=== PATIENT | male | born 1960 | race Caucasian/White ===

== ENCOUNTER 2020-04-24 16:29 | Outpatient (CLI) | payer BC, SELFPAY | END 2020-04-24 16:30 | disposition home or self-care (01) | LOC: ANHCOVIDVC 16:29 | PROVIDERS: PCP Internal Medicine | DX: Z23 Encounter for immunization (principal) | CPT/HCPCS: 0001A; 91300 ==

== ENCOUNTER 2020-05-15 16:26 | Outpatient (CLI) | payer BC, SELFPAY | END 2020-05-15 16:27 | disposition home or self-care (01) | LOC: ANHCOVIDVC 16:26 | PROVIDERS: PCP Internal Medicine | DX: Z23 Encounter for immunization (principal) | CPT/HCPCS: 0002A; 91300 ==

== ENCOUNTER → 2021-05-19 07:38 | Outpatient (CLI) | payer BC, SELFPAY ==
--- NOTE | ~2021-05-19 | MR_ITS ---
EXAMINATION: MR lumbar spine wo con EXAM DATE: 05/19/2021 08:12 INDICATION: Low back radiculopathy, lbp right leg burning pain x3mos. Low back pain. TECHNIQUE: Multi-sequential, multiplanar MR images of the lumbar spine were obtained without contrast . Sagittal T1, T2, T2 fat saturation images. Axial T2 weighted images. There is no prior study for comparison. FINDINGS: There is moderate loss of the L5-S1 disc height, mild to moderate disc disease at the other lumbar levels. The conus medullaris terminates at the T12-L1 level and has normal signal intensity a nd morphology. There are no suspicious marrow signal abnormalities. Paraspinal soft tissue is unrema rkable. The vertebral bodies are aligned in the AP dimension. Level by level evaluation: T12-L1: There is a mild diffuse disc bulge. Facet arthropathy: None. Neural foraminal stenosis: No stenosis. Central canal stenosis: No stenosis. L1-L2: There is a mild to moderate diffuse disc bulge. Facet arthropathy: Mild. Neural foraminal stenosis: No stenosis. Central canal stenosis: Mild. L2-L3: There is a moderate diffuse disc bulge. Facet arthropathy: Mild to moderate. Neural foraminal stenosis: Mild to moderate bilateral. Central canal stenosis: Mild to moderate. L3-L4: There is a moderate diffuse disc bulge. Facet arthropathy: Moderate. Neural foraminal stenosis: Mild to moderate bilateral. Central canal stenosis: Moderate. L4-L5: There is a moderate to large diffuse disc bulge. Facet arthropathy: Moderate . Ligamentum flavum enlargement. Neural foraminal stenosis: Moderate left, mild to moderate right. Central canal stenosis: Moderate to severe. L5-S1: There is a moderate diffuse disc bulge. Facet arthropathy: Mild to moderate. Neural foraminal stenosis: Mild to moderate left, mild right. Central canal stenosis: Mild to moderate. IMPRESSION: 1. L4-5 moderate to severe central canal stenosis. 2. Less spondylosis other levels. Reviewed, dictated and finalized at location A.
== END ==
PROVIDERS: Visit Provider Nurse Practitioner Family
DX: M54.50 Low back pain, unspecified (principal); M47.896 Other spondylosis, lumbar region
CPT/HCPCS: 72148

== ENCOUNTER → 2022-12-27 10:46 | Outpatient (CLI) | payer BC, SELFPAY ==
--- NOTE | ~2022-12-27 | XR_ITS ---
Clinical Indication: Chronic cough PA and lateral views of the chest: Comparison: None Findings: The lungs are clear, without evidence of focal consolidation or pleural effusion. Cardiome diastinal silhouette is within normal limits. Bones and soft tissues are unremarkable. Impression: Normal chest. Reviewed, dictated and finalized at location . BUTTER HAND Impression: Normal chest.
== END ==
PROVIDERS: PCP Internal Medicine
DX: R05.3 Chronic cough (principal)
CPT/HCPCS: 71046

== ENCOUNTER 2023-09-29 08:11 | Outpatient (CLI) | payer BC, SELFPAY ==
--- NOTE | 2023-10-02 11:37 | WPDPFTINT ---
PFT Procedure Performed PFT Procedure Performed Spirometry with Pre/Post Bronchodilator Plethysmography (Lung Vol) Diffusing Cap (DLCO) Flow Vol Loop PFT Interpretation DOS: 09/29/2023 REQUESTING: Dr Lazar REASON FOR TESTING: Chronic cough PULMONARY FUNCTION TESTS Results are reliable and reproducible. Repeatability of spirometry FEV1 maneuver pre and post bronchodilator is Grade A. Spirometry: The pre-bronchodilator FEV1 is 4.58 L, 132%, above the normal range. The pre-bronchodilator FVC is 5.82 L, 130%, above the normal range.. The FEV1/FVC ratio is 79%, normal. After bronchodilator, the FEV1 is 4.72 L, 136%, +3%. The FVC is 5.86 L, 131%, +1%. The FEV1/FVC ratio is 80%. Lung volumes: The total lung capacity is 8.14 L, 119%, normal. The FRC is 3.50 L, 91%, normal. The residual volume is 2.24 L, 98%, normal. The RV/TLC is 28%, normal. Diffusion: DLCO is 31.6, 105%, normal. The DLCO/VA is 4.07, 101%, normal. Flow volume loop: The flow volume loop is normal. IMPRESSION: This is a normal spirometry showing large lungs without airflow obstruction, no response to bronchodilator, normal lung volumes and normal diffusion. Sheri Lazar MD
== END 2023-09-29 08:12 | disposition home or self-care (01) ==
PROVIDERS: PCP Internal Medicine; Visit Provider Internal Medicine Critical Care Medicine
DX: R05.3 Chronic cough (principal)
CPT/HCPCS: 94060; 94726; 94729

== ENCOUNTER 2023-09-29 08:12 | Outpatient (CLI) | payer BC, SELFPAY ==
--- NOTE | ~2023-09-29 | CT_ITS ---
EXAMINATION:CT chest high resolution wo mn DATE: 09/29/2023 09:34 INDICATION: Chronic cough. TECHNIQUE: Computed tomography (CT) of the chest was performed without intravenous contrast. Automate d exposure control and iterative reconstruction technique were employed. The dose-length product (DLP ) was 636.92 mGy-cm. COMPARISON: Chest 2 views 12/27/2022 FINDINGS: There is no bronchiectasis or honeycombing. There is no pneumonia or pleural effusion. The heart size is normal. No pericardial effusion. There is diffuse hepatic steatosis. There are gallston es in the gallbladder, which is normal in size. There are bridging endplate osteophytes at multiple l evels in the spine, consistent with diffuse idiopathic skeletal hyperostosis (DISH). IMPRESSION: 1. Normal lungs. 2. Diffuse hepatic steatosis. 3. Cholelithiasis. Reviewed, dictated and finalized at location A.
== END 2023-09-29 08:13 | disposition home or self-care (01) ==
PROVIDERS: PCP Internal Medicine; Visit Provider Internal Medicine Critical Care Medicine
DX: R05.3 Chronic cough (principal); K80.20 Calculus of gallbladder without cholecystitis without obstruction; K76.0 Fatty (change of) liver, not elsewhere classified
CPT/HCPCS: 71250

== ENCOUNTER 2024-01-21 08:19 | Outpatient (CLI) | payer BC, SELFPAY ==
--- NOTE | ~2024-01-21 | US_ITS ---
Limited Abdominal Sonogram: Real-time sonographic imaging of the right upper quadrant was performed. Clinical History: Abnormal LFTs Findings: The liver appears echogenic, with no evidence of mass lesion or bile duct dilatation. Main portal vein demonstrates normal direction of flow. The gallbladder is well distended, and contains e chogenic layering gallstones. The common bile duct measures 6 mm. The visualized pancreas, aorta, an d IVC are unremarkable. Right kidney measures 11.8 cm in length, without hydronephrosis or renal ston e. Impression: Diffuse fatty infiltration of the liver. Cholelithiasis. Reviewed, dictated and finalized at location M. ATIONAL ADVISOR Impression: Diffuse fatty infiltration of the liver. Cholelithiasis.
== END 2024-01-21 08:20 | disposition home or self-care (01) ==
PROVIDERS: PCP Internal Medicine; Visit Provider Internal Medicine
DX: R79.89 Other specified abnormal findings of blood chemistry (principal); K76.0 Fatty (change of) liver, not elsewhere classified; K80.20 Calculus of gallbladder without cholecystitis without obstruction
CPT/HCPCS: 76705

== ENCOUNTER 2024-06-22 10:56 | Outpatient (CLI) | payer BC, SELFPAY ==
--- OUTSIDE RECORDS SUMMARY | 2024-06-22 11:18 | XMS_ITS | Clinical Summary ---
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 Active Cyanocobalamin (VITAMIN B-12) [address] 1,000 mcg under the tongue daily. Active EPSOLAY 5 % Cream 3 Active montelukast (SINGULAIR) 10 MG tablet nightly at bedtime. 4 Active zinc gluconate 50 MG Tab Take 1 tablet (50 mg total) by mouth daily. Active tadalafil (CIALIS) 5 MG tabletIndications :BPH with obstruction/lower urinary tract symptoms Take 1 tablet (5 mg total) by mouth daily. 90 tablet 3 4 Active omeprazole (PRILOSEC) 20 MG capsule Take 1 capsule (20 mg total) by mouth 2 (two) times a day. 4 Active cetirizine (ZYRTEC) 10 MG tablet Take 1 tablet (10 mg total) by mouth daily. Active hydroCHLOROthiazi de (HYDRODIURIL) 25 MG tabletIndications :Benign essential hypertension TAKE 1 TABLET EVERY MORNING (MUST BE SEEN FOR FURTHER REFILLS) 90 tablet 3 4 Active nebivolol (BYSTOLIC) 20 MG tabletIndications :Benign essential hypertension TAKE 1 TABLET DAILY 90 tablet 3 4 Active Pyridoxine HCl (B-6) 100 MG Tab Take 1 tablet by mouth daily. Active magnesium oxide (MAG-OX) 250 MG tablet Take 1 tablet (250 mg total) by mouth daily. 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 White there was evidence of fatty liver disease during laprascopic surgery. ); Dizziness (Patient had dizziness episode last night, BP was 110/60 during episode. Patient help BP dose for today, patient does feel improvement, but not 100% back to normal. ) 04/06/2024 Travel 03/26/2024 8:00 AM [facility] - 03/26/2024 10:31 AM [facility] Surgery [facility] [place] [address] Jonnathan White MD LAPAROSCOPIC CHOLECYSTECTOMY WITH INTRAOPERATIVE CHOLANGIOGRAMS 03/26/2024 7:58 AM [facility] Anesthesia Event [facility] [place] [address] Quinten Zepeda MD Jarvis, Brittany L, BROADBAND INSTALLER 03/26/2024 5:29 AM [facility] - 03/28/2024 2:59 PM [facility] Hospital Encounter [facility] Med/Surg [address] [place] [address] Jonnathan White MD Discharge Disposition: Home or Self Care (Routine Discharge) 03/26/2024 Travel from Last 3 Months Immunizations Immunization Administration Dates Next Due Fluzone (IIV3, Trivalent, 0. 5 ML Prefilled Syringe) 12/08/2023 Fluzone 6 Months+ Quad (0.5 mL Prefilled Syringe) 11/13/2019 Influenza (Generic) 11/19/2017,11/10/2014 Influenza Adult (Generic) 12/01/2018,,11/10/2014,2012,01/14/2012 Tdap (Adacel) 07/09/2019 Zoster (Zostavax) 38719 Unt/0.65Ml 08/02/2016 Family History Medical History Relation Comments Hypertension Father Heart Disease Maternal Grandmother Diabetes Mother Hypertension Mother Cancer Paternal Grandfather Prostate Cancer Paternal Grandmother Breast Cancer Sister Brain Relation Status Comments Father Maternal Grandmother Mother Paternal Grandfather Paternal Grandmother Sister Social History Tobacco Use Types Packs/Day Years Used Date Smoking Tobacco: Never Smokeless Tobacco: Never Tobacco Cessation:Counseling Given: Not Answered Alcohol Use Standard Drinks/Week Comments Not Currently 0 (1 standard drink = 0.6 oz pur e alcohol) once every few months AUDIT-C Answer Date Recorded Frequency of Alcohol Consumption Monthly or less 02/16/2018 Average Number of Drinks Not on file 019 Frequency of Binge Drinking Not on file 08/2018 PHQ-2 Answer Date Recorded Patient Health Questionnaire-2 Score 0 04/06/2024 Sex and Gender Information Value Date Recorded Sex Assigned at Male 02/16/2018 2:46 PM [facility] Legal Sex Male 8:21 PM CDT Gender Identity Male 02/16/2018 2:46 PM [facility] Sexual Orientation Straight 02/16/2018 2: 46 PM [facility] Last Filed Vital Signs Vital Sign Reading Time Taken Comments Blood Pressure 118/78 04/06/2024 2:58 PM [facility] Pulse 84 04/06/2024 2:58 PM [facility] Temperature 36.5 C (97.7 F) 04/06/2024 2:58 PM [facility] Respiratory Rate 16 04/06/2024 2:58 PM [facility] Oxygen Saturation 97% 04/06/2024 2:58 PM [facility] Inhaled Oxygen Concentration - - Weight 112 kg (246 lb 14.4 oz) 04/06/2024 2:58 P M [facility] Height 188 cm (6' 2 ) 04/06/2024 2:58 PM [facility] Body Mass Index 31.7 04/06/2024 2:58 PM [facility] [facility] Plan of Treatment Health Maintenance Due Date Last Done Comments Pneumococcal Vaccine: 50+ Years (1 of 1 - PCV) 2012 Zoster Vaccines (3 of 3) 10/27/2021 09/01/2021, 07/12 Annual Physical 12/07/2024 12/08/2023 COVID-19 Vaccine ( - season) 2024 09/01/2021, 01/31/2021, 05/15/2020, Additional history exists Postponed from 10/12/2023 (Patient Refused) Colorectal Cancer Screening FIT-DNA (3 Years) 12/20/2026 12/21/2023, 12/21/2023, 10/30/2020, Additional history exists DTaP, Tdap and Td Vaccines (2 - Td or Tdap) 07/08/2029 07/09/2019 RSV Immunization or 60+ Years Completed 02/18/2023 Hepatitis C Completed 12/30/2023 PHQ-2 (Physician Goodells) Completed 04/06/2024 Meningococcal B Vaccine Aged Out No l onger eligible based on patient's age to complete this topic Meningococcal Vaccine Aged Out No cat swapna eligible based on patient's age to complete this topic RSV Immunizations Under 20 Months Aged Out No longer eligible based on patient's age to complete this topic Procedures Procedure Name Priority Date/Time Associated Diagnosis Comments HEPATIC FUNCTION PANEL TIMED 03/28/2024 10:09 AM [facility] COMPREHENSIVE METABOLIC PANEL Routine 03/28/2024 5:30 AM [facility] [facility] MRCP STACIE 03/27/2024 10:32 AM [facility] CBC W/DIFF AUTOMATED Routine 03/27/2024 5:25 AM [facility] HEPATIC FUNCTION PANEL Routine 03/27/2024 5:25 AM [facility] [facility] SURG XR CHOLANGIOGRAM Routine 03/26/2024 9:27 AM [facility] LAP,CHOLECYSTECTOMY/ GRAPH 03/26/2024 7:58 AM [facility] CHOLELITHIASIS ( CODE NOT PROVIDED BY OFFICE ) Case Notes SCHED BY PHONE WITH DEBORAH 03/05/2024 [facility] PHONE ASSESS REQUESTED 90 MINUTES FOR CASE Special Needs REQUESTED FOR 90 MINUTES PATHOLOGY Routine 03/26/2024 12:00 AM [facility] HEPATITIS C ANTIBODY Routine 12/30/2023 8:14 AM [facility] Routine general medical examination at a health care facility COLOGUARD (EXACT SCIENCE) Routine 12/21/2023 10:40 AM [facility] Colon cancer screening from Last 3 Months or Most Recently Relevant to Health Maintenance Results * (ABNORMAL) HEPATIC FUNCTION PANEL (03/28/2024 10:09 AM [facility] [facility]) Only the most recent of2 resultswithin the time period is included. TOTAL PROTEIN S/P/B 7.5 6.4 - 8.2 G/DL 03/28/2024 12:12 PM [facility] ALBUMIN S/P/B 3.5 3.4 - 5.0 G/DL 03/28/2024 12:12 PM [facility] BILIRUBIN TOTAL S/P/B 2.1(H) 0.2 - 1.2 MG/DL 03/28/2024 12:12 PM [facility] Comment: THIS ASSAY IS NOT RECOMMENDED FOR PATIENTS UNDERGOING TREATMENT WITH ELTROMBOPAG DUE TO THE POTENTIAL FOR FALSELY ELEVATED RESULTS. BILIRUBIN DIRECT S/P/B 0.9(H) 0.0 - 0.20 MG/DL 03/28/2024 12:12 PM [facility] [facility] BILIRUBIN INDIRECT S/P/B 1.2(H) 0.0 - 0.9 MG/DL 03/28/2024 12:12 PM [facility] [facility] ALKALINE PHOSPHATASE S/P/B 79 50 - 136 U/L 03/28/2024 12:12 PM [facility] [facility] AST 40(H) 15 - 37 U/L 03/28/2024 12:12 PM [facility] ALT 61(H) 16 - 60 U/L 03/28/2024 12:12 PM [facility] A/G RATIO 0.9(L) 1.0 - 2.0 RATIO 03/28/2024 12:12 PM [facility] 03/28/2024 10:0 9 AM [facility] us Jonnathan White MD LABORATORY Final Result [facility] [address] [place] [address], * (ABNORMAL) COMPREHENSIVE METABOLIC PANEL (03/28/2024 5:30 AM [facility] [facility]) GLUCOSE 106(H) 70 - 99 MG/DL 03/28/2024 6:11 AM [facility] BUN 8 7 - 18 MG/DL 03/28/2024 6:11 AM [facility] CREATININE S/P/B 0.79 0.7 - 1.3 MG/DL 03/28/2024 6:11 AM [facility] SODIUM S/P/B 131(L) 136 - 145 MMOL/L 03/28/2024 6:11 AM [facility] POTASSIUM S/P/B 2.8(LL) 3.5 - 5.1 MMOL/L 03/28/2024 6:11 AM [facility] Comment: Critical Result(s) Called at: 06:10:03 on 03/28/2024 by: Riya Akbar to and read back by:DIANNE ZAMBRANO CHLORIDE S/P/B 97 97 - 115 MMOL/L 03/28/2024 6:11 AM [facility] CO2 29.2 21 - 32 MMOL/L 03/28/2024 6:11 AM [facility] CALCIUM S/P/B 8.9 8.5 - 10.1 MG/DL 03/28/2024 6:11 AM [facility] BILIRUBIN TOTAL S/P/B 1.9(H) 0.2 - 1.2 MG/DL 03/28/2024 6:11 AM [facility] Comment: THIS ASSAY IS NOT RECOMMENDED FOR PATIENTS UNDERGOING TREATMENT WITH ELTROMBOPAG DUE TO THE POTENTIAL FOR FALSELY ELEVATED RESULTS. TOTAL PROTEIN S/P/B 7.3 6.4 - 8.2 G/DL 03/28/2024 6:11 AM [facility] ALBUMIN S/P/B 3.4 3.4 - 5.0 G/DL 03/28/2024 6:11 AM [facility] AST 39(H) 15 - 37 U/L 03/28/2024 6:11 AM [facility] ALT 62(H) 16 - 60 U/L 03/28/2024 6:11 AM [facility] ALKALINE PHOSPHATASE S/P/B 75 50 - 136 U/L 03/28/2024 6:11 AM [facility] ANION GAP 4.8 2 - 10 MMOL/L 03/28/2024 6:11 AM [facility] BUN CREATININE RATIO 10.1 6 - 26 03/28/2024 6:11 AM [facility] A/G RATIO 0.9(L) 1.0 - 2.0 RATIO 03/28/2024 6:11 AM [facility] GFR ESTIMATE >90 >90 ML/MIN/1.7 3 M2 03/28/2024 6:11 AM [facility] Comment: NOTE: eGFR is not calculated for patients <18 years of age or gender unknown. This is an estimated GFR calculation using the new CKD EPI creatinine equation without race and so does not require a correction factor for race. This estimated GFR should not be used for calculating drug doses. 03/28/2024 5:30 AM [employer] [employer] [facility] Jonnathan White MD LABORATORY Final Result [facility] [address] [place] [address], [place] [phone] * MRCP (03/27/2024 10:32 AM [facility] [employer] [facility]AND) Anatomical Region Laterality Modality Abdomen Magnetic Resonan ce 03/27/2024 3:59 PM [facility] [facility] Impressions 03/27/2024 4:18 PM [facility] [employer] [facility] IMPRESSION:===== 1. Unremarkable bile ducts with no evidence of choledocholithiasis or abnormal dilation. 2. Surgical changes of recent cholecystectomy with reactive fluid/edema and surgical drain in place. 3. Gallstone suggested within the cystic duct remnant. 4. Mild hepatosplenomegaly and diffuse hepatic steatosis. Referred By: Interpreted By: José Luis Medrano MD, 03/27/2024 3:59 PM Narrative 03/27/2024 4:18 PM [facility] [employer] [facility] [address] [place], [place] [address] EXAMINATION: MRCP EXAM DATE/TIME: 03/27/2024 10:07 AM REASON FOR EXAM: eval for CBD stone. Cholecystectomy performed yesterday. Elevated liver enzymes. COMPARISON: Cholangiogram images 03/26/2024 TECHNIQUE: Multiplanar images of the upper abdomen were obtained with attention to the biliary tree, utilizing heavily T2-weighted sequences. Maximum intensity projection and 3-D reconstruction sequences of the biliary tree were obtained. FINDINGS: Surgical changes of recent cholecystectomy with moderate stranding/edema in the gallbladder fossa and tracking into the adjacent tissues. There is a surgical drain in place. Minimal perihepatic free fluid but no suspicious loculated fluid collections. Cystic duct remnant contains a rounded dark focus compatible with a retained gallstone. Adjacent smaller dark foci could be additional stones or small postoperative gas bubbles. On MRCP images, the common duct has uniform size and contour. No suspicious filling defect. No evidence of choledocholithiasis. Intrahepatic ducts are unremarkable. Pancreatic duct is likewise unremarkable, normal in size. Few scattered hepatic cysts. Liver is mildly enlarged with right upper lobe measuring 23.4 cm in length. Diffuse fatty infiltration of the liver. Mild splenomegaly measuring 14.0 cm in length. The pancreas, adrenal glands, aorta and IVC are unremarkable. Several small renal cysts without suspicious features. No follow- up required for these. Minimal pleural effusions and bibasilar atelectasis. Degenerative changes are noted in the visualized spine. ===== Procedure Note Harviell, José Luis Maria MD - 03/27/[address] [address] EXAMINATION: MRCP EXAM DATE/TIME: 03/27/2024 10:07 AM REASON FOR EXAM: eval for CBD stone. Cholecystectomy performed yesterday.Elevated liver enzymes. COMPARISON: Cholangiogram images 03/26/2024 TECHNIQUE: Multiplanar images of the upper abdomen were obtained withattention to the biliary tree, utilizing heavily T2-weighted sequences.Maximum intensity projection and 3-D reconstruction sequences of thebiliary tree were obtained. FINDINGS: Surgical changes of recent cholecystectomy with moderatestranding/edema in the gallbladder fossa and tracking into the adjacenttissues. There is a surgical drain in place. Minimal perihepatic freefluid but no suspicious loculated fluid collections. Cystic duct remnantcontains a rounded dark focus compatible with a retained gallstone.Adjacent smaller dark foci could be additional stones or smallpostoperative gas bubbles. On MRCP images, the common duct has uniform size and contour. Nosuspicious filling defect. No evidence of choledocholithiasis.Intrahepatic ducts are unremarkable. Pancreatic duct is likewiseunremarkable, normal in size. Few scattered hepatic cysts. Liver is mildly enlarged with right upperlobe measuring 23.4 cm in length. Diffuse fatty infiltration of the liver.Mild splenomegaly measuring 14.0 cm in length. The pancreas, adrenalglands, aorta and IVC are unremarkable. Several small renal cysts withoutsuspicious features. No follow-up required for these. Minimal pleuraleffusions and bibasilar atelectasis. Degenerative changes are noted in thevisualized spine. ===== IMPRESSION:===== 1. Unremarkable bile ducts with no evidence of choledocholithiasis orabnormal dilation. 2. Surgical changes of recent cholecystectomy with reactive fluid/edemaand surgical drain in place. 3. Gallstone suggested within the cystic duct remnant. 4. Mild hepatosplenomegaly and diffuse hepatic steatosis. Referred By: Interpreted By: José Luis Medrano MD, 03/27/2024 3:59 PM us Jonnathan White MD MRI Final Result * (ABNORMAL) CBC W/DIFF AUTOMATED (03/27/2024 5:25 AM [facility]) WBC 8.20 4.5 - 11.0 x10'3/uL 03/27/2024 5:56 AM [facility] RBC 4.38(L) 4.70 - 6.10 x10'6/uL 03/27/2024 5:56 AM [facility] HGB 12.7(L) 14.0 - 18.0 G/DL 03/27/2024 5:56 AM [facility] HCT 37.2(L) 43.0 - 54.0 % 03/27/2024 5:56 AM [facility] MCV 84.9 80.0 - 94.0 FL 03/27/2024 5:56 AM [facility] MCH 29.0 27.0 - 31.0 PG 03/27/2024 5:56 AM [facility] MCHC 34.1 32.0 - 36.0 G/DL 03/27/2024 5:56 AM [facility] RDW 12.4 11.5 - 14.5 % 03/27/2024 5:56 AM [facility] PLT 125(L) 130 - 400 x10'3/uL 03/27/2024 5:56 AM [facility] MPV 9.9 9.3 - 12.2 FL 03/27/2024 5:56 AM [facility] DIFFERENTIAL TYPE AUTOMATED DIFFERENTIAL 03/27/2024 5:56 AM [facility] NEUTROPHILS % 75.0 % 03/27/2024 5:56 AM [facility] LYMPHOCYTES % 17.2 % 03/27/2024 5:56 AM [facility] MONOCYTES % 7.1 % 03/27/2024 5:56 AM [facility] EOSINOPHILS 0.1 % 03/27/2024 5:56 AM [facility] BASOPHILS 0.1 % 03/27/2024 5:56 AM [facility] IMMATURE GRANS % 0.5 % 03/27/19 5:56 AM [facility] ABS. NEUTROPHILS 6.15 1.80 - 7.70 x10'3/uL 03/27/2024 5:56 AM [facility] ABS. LYMPHOCYTES 1.41 1.00 - 4.80 x10'3/uL 03/27/2024 5:56 AM [facility] ABS. MONOCYTES 0.58 0.30 - 0.82 x10'3/uL 03/27/2024 5:56 AM [facility] ABS. EOSINOPHILS 0.01(L) 0.04 - 0.54 x10'3/uL 03/27/2024 5:56 AM [facility] ABS. BASOPHILS 0.01 0.01 - 0.08 x10'3/uL 03/27/2024 5:56 AM [facility] ABS. IMMATURE GRANULOCYTES 0.04 0.00 - 0.49 x10'3/uL 03/27/2024 5:56 AM [facility] 03/27/2024 5:25 AM [facility] Jonnathan White MD LABORATORY Final Result Performing Organization Address City/State/[facility] Co de Phone Number [facility] [address] [place] [address], [place] [phone] * SURG XR CHOLANGIOGRAM (03/26/2024 9:27 AM [facility]) Anatomical Region Laterality Modality Abdomen Radiographic Essence ging 03/26/2024 9:33 AM [facility] Impressions 03/26/2024 9:34 AM [facility] =====IMPRESSION:===== 1. No definite stones in the common hepatic or common bile duct noted. 2. Incomplete evaluation of the hepatic ducts. 3. Contrast in the duodenum noted. Ordered By: JONNATHAN WHITE Interpreted By: Jude Engle MD, 03/26/2024 9:33 AM Narrative 03/26/2024 9:34 AM [facility] [address] [place], [place] [address] EXAMINATION: Intraoperative Cholangiogram EXAM DATE/TIME: 03/26/2024 9:01 AM REASON FOR EXAM: intra op TECHNIQUE: Intraoperative fluoroscopic spot views of cholangiogram with 485 images submitted for interpretation. A total of 1.2 minute of fluoroscopic time was utilized for the study. FINDINGS: There is opacification of portions of biliary tract including the common hepatic and common bile duct and cystic duct. No definite stone in these regions is seen. Opacification of portions of the right hepatic duct is suspected although this is somewhat limited due to overlying artifact and incomplete opacification. No filling defect to suggest stones in the common hepatic or common bile duct is seen. There is contrast in the duodenum noted. Procedure Note Jude Engle MD - 03/26/[address] [address] EXAMINATION: Intraoperative Cholangiogram EXAM DATE/TIME: 03/26/2024 9:01 AM REASON FOR EXAM: intra op TECHNIQUE: Intraoperative fluoroscopic spot views of cholangiogram [id number] images submitted for interpretation. A total of 1.2 minute offluoroscopic time was utilized for the study. FINDINGS: There is opacification of portions of biliary tract includingthe common hepatic and common bile duct and cystic duct. No definite stonein these regions is seen. Opacification of portions of the right hepaticduct is suspected although this is somewhat limited due to overlyingartifact and incomplete opacification. No filling defect to suggest stonesin the common hepatic or common bile duct is seen. There is contrast inthe duodenum noted. =====IMPRESSION:===== 1. No definite stones in the common hepatic or common bile duct noted. 2. Incomplete evaluation of the hepatic ducts. 3. Contrast in the duodenum noted. Ordered By: JONNATHAN WHITE Interpreted By: Jude Engle MD, 03/26/2024 9:33 AM us Jonnathan White MD IMAGES ONLY Final Result * Pathology (03/26/2024 12:00 AM [facility]) PATHOLOGY [facility] Department of Laboratory Medicine [address] [place] [phone] , extension [phone] Pathology Report Surgical Pathology Report Name: EARLINE LU Specimen #: [id number] Age: 9 1960 (Age: 63) Location: [id number] Sex: M Procedure Date: 03/26/2024 Hospital #: [id number] Date Received: 03/26/2024 Date Reported: 03/29/2024 Provider: JONNATHAN WHITE MD Source: Gallbladder Clinical History: Cholelithiasis. FINAL DIAGNOSIS: Gallbladder, cholecystectomy: -Mild chronic cholecystitis -Cholelithiasis Gross Description: Received in formalin, labeled with a patient label and as gallbladder, is a 6.5 x 3.5 x 1.8 cm disrupted gallbladder. The external surface is glistening, farias-pink to hyperemic, and varies from smooth to shaggy. The proximal gallbladder is disrupted and the cystic duct margin is not identified. The cystic duct appears widely patent. The mucosa is velvety, hyperemic. The wall thickness averages 0.1-0.2 cm in thickness. No discrete lesions or masses are identified. Also received are multiple smooth, rounded black choleliths that measure up to 1.0 cm in aggregate approximately 2.5 x 2.0 x 1.0 cm. Blackjack Supervisor sections are submitted in cassette 1. Gross examination (when applicable) was performed at [facility], [address] [place] [address]. This case was interpreted and signed out at [facility], [address] [place] [address]. 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 Unknown what type or timeline Jonnathan White MD PATHOLOGY/CYTOLOGY ORDERABLES F inal Result [facility] [address] [place] [address], [phone] * HEPATITIS C ANTIBODY (12/30/2023 8:14 AM [facility]) Pathologist [facility] HEPATITIS C AB NON-REACTI VE NON-REACT DMITRIY 12/30/2023 7:58 PM [facility] Comment: ANTIBODIES TO HCV NOT DETECTED. DOES NOT EXCLUDE THE POSSIBILITY OF EXPOSURE TO HCV. 12/30/2023 8:14 AM [facility]AND Anthony Deal MD LABORATORY Final Result [facility] [address] [place] [address], [phone] * COLOGUARD (EXACT SCIENCE) (12/21/2023 10:40 AM TACKER [facility]) [facility] COLOGUARD RESULT Negative Negative [employer] (CLIA #:[id number]) Comment: NEGATIVE TEST RESULT. A negative Cologuard result indicates a low likelihood that a colorectal cancer (CRC) or advanced adenoma (adenomatous polyps with more advanced pre-malignant features) is present. The chance that a person with a negative Cologuard test has a colorectal cancer is less than 1 in 1500 (negative predictive value >99.9%) or has an advanced adenoma is less than 5.3% (negative predictive value 94.7%). These data are based on a prospective cross-sectional study of 10,000 individuals at average risk for colorectal cancer who were screened with both Cologuard and colonoscopy. (Anuradha Sutton et al, N Engl J Med 2014;370(14):7191-7802) The normal value (reference range) for this assay is negative. COLOGUARD RE-SCREENING RECOMMENDATION: Periodic colorectal cancer screening is an important part of preventive healthcare for asymptomatic individuals at average risk for colorectal cancer. Following a negative Cologuard result, the [place] [employer] and U.S. Multi-Society Task Force screening guidelines recommend a Cologuard re-screening interval of 3 years. References: [place] [employer] Guideline for Colorectal Cancer Screening: https://www.cancer.org/cancer/efnws-wzeeih-trmnza/umgrjblxj-gnoqaxyuu-hjlrohi/ac s-rec ommendations.html.; Maurisio DK, Sari CASIANO, Luis Daniel JIANG, Colorectal Cancer Screening: Recommendations for Physicians and Patients from the U.S. Multi-Society Task Force on Colorectal Cancer Screening , Am J Gastroenterology 2017; 112:0784-4938. TEST DESCRIPTION: Composite algorithmic analysis of stool DNA-biomarkers with hemoglobin immunoassay. Quantitative values of individual biomarkers are not reportable and are not associated with individual biomarker result reference ranges. Cologuard is intended for colorectal cancer screening of adults of either sex, 45 years or older, who are at average-risk for colorectal cancer (CRC). Cologuard has been approved for use by the U.S. FDA. The performance of Cologuard was established in a cross sectional study of average-risk adults aged 50-84. Cologuard performance in patients ages 45 to 49 years was estimated by sub-group analysis of near-age groups. Colonoscopies performed for a positive result may find as the most clinically significant lesion: colorectal cancer [4.0%], advanced adenoma (including sessile serrated polyps greater than or equal to 1cm diameter) [20%] or non- advanced adenoma [31%]; or no colorectal neoplasia [45%]. These estimates are derived from a prospective cross-sectional screening study of 10,000 individuals at average risk for colorectal cancer who were screened with both Cologuard and colonoscopy. (Anuradha Sutton et al, N Engl J Med 2014;370(14):5426-1259.) Cologuard may produce a false negative or false positive result (no colorectal cancer or precancerous polyp present at colonoscopy follow up). A negative Cologuard test result does not guarantee the absence of CRC or advanced adenoma (pre-cancer). The current Cologuard screening interval is every 3 years. ([place] [employer] and U.S. Multi-Society Task Force). Cologuard performance data in a 10,000 patient pivotal study using colonoscopy as the reference method can be accessed at the following location: www.HealthyTweet.Likez/results. Additional description of the Cologuard test process, warnings and precautions can be found at www.cologuard.com. STOOL STOOL SPECIMEN / Unknown 12/21/2023 10:40 AM TACKER ELASTIC BAND 12/23/2023 9:52 AM TACKER ELASTIC BAND us Anthony Deal MD BODY FLUIDS AND STOOLS ORDERAB LES Final Result [facility] ([facility]) [address] [place] [address], [employer] (CLIA #:[id number]) [address] 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
[2024-06-22 11:42] LABS: Basophils Percent Auto 0.8 % (0.2-1.2); Eosinophils Absolute Auto 0.1 K/mm3 (0-0.3); Eosinophils Percent Auto 1.9 % (0-4.4); Hematocrit 41.6 % (42.0-52.0); Immature Granulocyte Absolute 0.02 K/mm3 (0.00-0.031); Immature Granulocyte Percent A 0.4 % (0-0.5); Immature Platelet Fraction Pct 2.3 % (0.9-11.2); Lymphocytes Absolute Auto 1.08 K/mm3 (0.9-3.2); Lymphocytes Percent Auto 22.9 % (18.3-44.2); Mean Corpuscular HGB Conc 33.7 g/dl (32-36); Mean Corpuscular Hemoglobin 29.4 pg (26-34); Mean Corpuscular Volume 87.4 fl (80-100); Mean Platelet Volume 10.3 fl (7.4-10.4); Monocytes Absolute Auto 0.3 K/mm3 (0.1-0.6); Monocytes Percent Auto 6.2 % (2.6-8.5); Neutrophils Absolute Auto 3.2 K/mm3 (1.3-6.7); Neutrophils Percent Auto 67.8 % (45.5-73.1); Platelet Count Result 137 k/mm3 (150-375); Red Blood Count 4.76 M/mm3 (4.6-6.20); Red Cell Distribution Width 12.9 % (11.5-14.5); White Blood Count 4.7 K/mm3 (4.5-10.0)
[2024-06-22 11:43] LABS: INR 1.1; Prothrombin Time 14.8 Seconds (11.1-14.7)
[2024-06-22 11:47] LABS: Iron 81 ug/dL (49-181)
[2024-06-22 11:48] LABS: Alanine Aminotransferase 76 U/L (6-50); Albumin Level 4.6 g/dL (3.5-5.1); Alkaline Phosphatase 94 U/L (38-126); Aspartate Amino Transferase 77 U/L (17-59); CRP 0.7 mg/dL (<1.0)
[2024-06-22 11:57] LABS: Percent Iron Saturation 20 % (20-50)
[2024-06-22 12:17] LABS: Hepatitis B Surface Antigen Negative (Negative)
[2024-06-22 12:23] LABS: HAV RESULT Negative (Negative); Hepatitis B Core IgM Result Negative (Negative)
[2024-06-22 12:34] LABS: Hepatitis C Virus Antibody Negative (Negative)
[2024-06-30 18:38] LABS: ALT 53 U/L (9-46); Alpha-2-Macroglobulin 165 mg/dL (106-279); Apolipoprotein A1 135 mg/dL (94-176); Fibrosis Score 0.49; Fibrosis Stage F2; GGT 226 U/L (3-70); Haptoglobin 108 mg/dL (43-212); Necroinflammat Act Grade A1-A2; Reference ID 5496350; Total Bilirubin 0.6 mg/dL (0.2-1.2)
== END 2024-06-22 10:57 | disposition home or self-care (01) ==
LOC: ANHLAB 10:57
PROVIDERS: PCP Internal Medicine; Visit Provider Internal Medicine Gastroenterology
DX: K76.0 Fatty (change of) liver, not elsewhere classified (principal)
CPT/HCPCS: 36415; 80074; 80076; 81596; 82104; 82728; 83540; 83550; 85025; 85055; 85610; 86038; 86039; 86140; 87340

== ENCOUNTER 2024-07-14 09:30 | Outpatient (CLI) | payer BC, SELFPAY ==
--- NOTE | ~2024-07-14 | US_ITS ---
COMPLETE ABDOMINAL ULTRASOUND Ordering provider: Larry Johns MD History: . K76.0 - Fatty (change of) liver, not elsewhere classified . Comparison: None. FINDINGS: LIVER: Normal size and increased echotexture. No focal hepatic lesions or perihepatic fluid collectio ns are identified. GALLBLADDER: Partially excised gallbladder. Cholelithiasis with stone measuring 0.6 x 0.6 x 0.9 cm.. No evidence for sludge, gallbladder wall thickening or pericholecystic fluid collections. A negative sonographic Ferrera's sign was noted. BILIARY DUCTS: No evidence for intra or extrahepatic biliary dilation. Common bile duct measures 6 mm in diameter which is within normal limits. PANCREAS: Not demonstrated. SPLEEN: Normal size, echotexture and contour and measures 14.6 cm in length. KIDNEYS: Right measures 12.2x 5.1x 5.1 cm in length and the left 12.4x 4.6x 6.1 cm in length. There i s no evidence for hydronephrosis, solid renal mass, renal calculi or perinephric fluid collections. N o renal cysts. Prominent pyramids are seen in the left kidney. UPPER ABDOMINAL AORTA: Normal in caliber. IVC: Not visualized. FREE FLUID: None. IMPRESSION: Fat infiltration of the liver. Possible residual portion of the gallbladder with possible gallstone. Further evaluation advised. Reviewed, dictated and finalized at location A. IMPRESSION: Fat infiltration of the liver. Possible residual portion of the gallbladder with possible gallstone. Further e valuation advised.
--- OUTSIDE RECORDS SUMMARY | 2024-07-14 09:37 | XMS_ITS ---
Author Organization [facility] [employer] [place] ([address]) Address [address] [place] [address] Care Team Providers Care Elevated Guard Name Role Phone Anthony Deal MD Primary Care Provider Unavail able Harrison Camilo Unavailable [phone] Chelsey Marcelino Unavailable [phone] REASON FOR VISIT Cough follow-up - daily [...] in each nostril 2 times a day for 30 days Active FLUTICASONE PROPIONATE 50 mcg/inh 1 spray(s) in each nostril twice a day for 90 days 03/27/2023 Active OLOPATADINE NASAL 665 mcg/inh 2 spray(s) intranasally 2 times a day for 90 days Active IPRATROPIUM NASAL 42 mcg/inh 2 spray(s) intranasally 3 times a day for 30 days Active VITAMIN D3 50 mcg 1 cap(s) orally once a day Active VITAMIN B-12 1000 mcg 1 tab(s) orally once a day Active MONTELUKAST SODIUM 10 mg 1 tab(s) orally once a day for 90 days Active CETIRIZINE HYDROCHLORIDE 10 mg [...] in each nostril 2 times a day for 30 days 06/17/2023 Active AEROCHAMBER MDI SPACER - MOUTHPIECE (ADULT) N/A As directed PO Per asthma action plan for 30 days Active ALBUTEROL (EQV-PROAIR HFA) 90 mcg/inh 2 puff(s) inhaled every 6 hours for 30 days Active Montelukast Sodium 10 mg TAKE 1 TABLET DAILY Active OLOPATADINE NASAL 665 MCG/INH 2 SPRAY(S) INTRANASALLY 2 TIMES A DAY for 90 DAYS *Please review for potential replacement for e-prescription and drug interaction check* 06/17/2023 Active OLOPATADINE HYDROCHLORIDE 665 MCG/INH 2 SPRAY(S) INTRANASALLY 2 TIMES A DAY for 90 DAYS *Please review for potential replacement for e-prescription and drug interaction check* 03/27/2023 Active Fluticasone Propionate 50 MCG/ACT 1 spray(s) in each nostril twice a day for 90 days 03/27/2023 Active Ipratropium [place] 0.06 % 2 spray(s) intranasally 3 times a day for 30 days Active Cetirizine HCl 10 MG 1 tab(s) orally once a day Active Cialis 5 MG 1 tab(s) orally once a day Active Vitamin D3 50 MCG 1 cap(s) orally once a day Active Encounters Encounter Location Date Provider Diagnosis [facility] [address] [place] [address] 12/16/2023 Chelsey Marcelino Chronic cough R05.3 ; [...] visit. 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 - Spirometry obtained [...] Dr. Lazar's team as his works at [employer] 12/16/2023 Allergic rhinitis due to pollen (ICD-10 [...] in each nostril 2 times a day for 30 days OLOPATADINE NASAL 665 mcg/inh 2 spray(s) intranasally 2 times a day for 90 days VITAMIN D3 50 mcg 1 cap(s) orally once a day VITAMIN B-12 1000 mcg 1 tab(s) orally on ce a day MONTELUKAST SODIUM 10 mg 1 tab(s) orally once a day for 90 days CETIRIZINE HYDROCHLORIDE 10 mg 1 [...] N/A As directed PO Per asthma action plan for 30 days ALBUTEROL (EQV-PROAIR HFA) 9 0 mcg/inh 2 puff(s) inhaled every 6 hours for 30 days Treatment Notes Assessment Notes Chronic [...] visit. 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 - Spirometry obtained [...] Dr. Lazar's team as his works at [employer] Allergic rhinitis due to pollen Main presented [...] Management Progress Notes * Main MARIEDOB: 3 (63 yo M)Acc No.[id number]:12/16/2023 Progress Notes Patient: Main CAPPS Provider: JAMARCUS AmesPBhavesh :1960 A ge:63 Y S ex:Male Date:12/16/2023 Address:[address] [place], [place] [id number] Pcp:Anthony Deal MD Subjective: * Chief Complaints: [...] dermatographia.. * HPI: * Introduction: HPI: Chema diane Marie, a 64-[id number]-[id number] male with past medical history significant for [...] unremarkable. * Medical History: * Medications: T geoffg BYSTOLIC 20 mg tablet 1 tab(s) orally [...] orally once a day , Taking Ipratropium [place] 0.06 % Solution 2 spray(s) intranasally 3 [...] visit. 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 - Spirometry obtained [...] Dr. Lazar's team as his works at [employer] 3. E ssential (primary) hypertension Continue BYSTOLIC [...] day. * Procedure Codes: 9 6160 PT-FOCUSED HLTH RISK ASSMT, G8427 DOC MEDS VERIFIED W/PT [...] TO ALTERNATIVE / PRIMARY CARE PROVIDER: Chema lindsay to general physician * Follow Up: 6 Months (Reason: Evaluation and Management) * Billing Information: * Visit Code: 12470 Office Visit, Est Pt., Level 4. Modifiers: 25 * Procedure Codes: 87351 PT-FOCUSED HLTH RISK ASSMT. G8427 DOC MEDS VERIFIED W/PT OR RE. 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 He denies shortness [...]
--- OUTSIDE RECORDS SUMMARY | 2024-07-14 09:38 | XMS_ITS | Patient Health Record ---
Author Organization [facility] ([address]) Address [address] [place] [address] Care Team Providers Care Chief Clinical Dietitian Name Role Phone Anthony Deal MD Primary Care Provider Unavail able Harrison Camilo Unavailable [phone] Chelsey Marcelino Unavailable [phone] ZGiselle-Raoul, Provider Unavailable Unavailab le Allergies No Known Allergies Reason For Referral No Information Medications Medication SIG (Take, Route, Frequency, Duration) Notes Start Date End Date Status MONTELUKAST SODIUM 10 mg 1 tab(s) orally once a day for 90 days Not-Taking Fluticasone Propionate 50 MCG/ACT 1 spray(s) in each nostril twice a day for 90 days 03/27/2023 Active Ipratropium [place] 0.06 % 2 spray(s) intranasally 3 times a day for 30 days Not-Taking Cetirizine HCl 10 MG 1 tab(s) orally once a day Not-Taking Omeprazole 20 MG Oral for 45 Days Not-Taking Fexofenadine HCl 180 MG 1 tablet Orally Twice a day for 30 days 06/21/2024 Active OLOPATADINE NASAL 665 MCG/INH 2 SPRAY(S) INTRANASALLY 2 TIMES A DAY for 90 DAYS *Please review for potential replacement for e-prescription and drug interaction check* 06/17/2023 Not-Taking Ipratropium [place] 0.06 % 4 sprays 2 sprays in each nostril Nasally Four times a day for 30 days 06/21/2024 Active Fluticasone Propionate 50 MCG/ACT 2 spray(s) in each nostril 2 times a day for 30 days 06/17/2023 Active OLOPATADINE HYDROCHLORIDE 665 MCG/INH 2 SPRAY(S) INTRANASALLY 2 TIMES A DAY for 90 DAYS *Please review for potential replacement for e-prescription and drug interaction check* 03/27/2023 Active ALBUTEROL (EQV-PROAIR HFA) 90 mcg/inh 2 puff(s) inhaled every 6 hours for 30 days Active AEROCHAMBER MDI SPACER - MOUTHPIECE (ADULT) N/A As directed PO Per asthma action plan for 30 days Active BYSTOLIC 20 mg 1 tab(s) orally once a day Active HYDROCHLOROTHIAZIDE 25 mg 1 tab(s) orally once a day Active MAGNESIUM OXIDE 400 mg 1 tab(s) orally once a day Active ZINC ACETATE 50 mg 1 cap(s) orally 3 times a day Active VITAMIN B6 100 mg 1 tab(s) orally once a day Active VITAMIN B-12 1000 mcg 1 tab(s) orally once a day Active VITAMIN D3 50 mcg 1 cap(s) orally once a day Active Cialis 5 MG 1 tab(s) orally once a day Not-Taking Vitamin D3 50 MCG 1 cap(s) orally once a day Not-Taking Vitamin B-12 1000 MCG 1 tab(s) orally once a day Not-Taking Vitamin B6 100 MG 1 tab(s) orally once a day Not-Taking FLUTICASONE PROPIONATE 50 mcg/inh 1 spray(s) in each nostril twice a day for 90 days 03/27/2023 Not-Taking IPRATROPIUM NASAL 42 mcg/inh 2 spray(s) intranasally 3 times a day for 30 days Not-Taking OLOPATADINE NASAL 665 mcg/inh 2 spray(s) intranasally 2 times a day for 90 days Not-Taking Zinc Acetate 50 MG 1 cap(s) orally 3 times a day Not-Taking Magnesium Oxide 400 MG 1 tab(s) orally once a day Not-Taking hydroCHLOROthiazide 25 MG 1 tab(s) orally once a day Not-Taking Bystolic 20 MG 1 tab(s) orally once a day Not-Taking CIALIS 5 mg 1 tab(s) orally once a day Active CETIRIZINE HYDROCHLORIDE 10 mg 1 tab(s) orally once a day Active FLUTICASONE NASAL 50 mcg/inh 2 spray(s) in each nostril 2 times a day for 30 days Active Montelukast Sodium 10 MG 1 tablet Orally Once a day for 90 days Active Olopatadine HCl 0.6 % 2 sprays in each nostril Nasally Twice a day for 30 days Active Social History Tobacco Use: Social History Observation Description Date Details (start date - stop date) Never Smoker NA - NA Tobacco Control (Standard) Question Answer Notes Tobacco use: Nonsmoker Problems Problem Type SNOMED Code ICD Code Onset Dates Problem Status W/U Status Risk Notes Problem Allergic rhinitis caused by pollen (disorder) (29406652) Allergic rhinitis due to pollen (J30.1) Active confirmed Problem Chronic rhinitis (14773578) Chronic rhinitis (J31.0) Active confirmed Problem Chronic cough (68499185) Chronic cough (R05.3) Active confirmed Problem Cough, unspecified (R05.9) Active confirmed Vital Signs Blood pressure diastolic 74 mm Hg 06/21/2024 Oximetry 97 % 06/21/2024 Height 74 in 06/21/2024 Blood pressure systolic 112 mm Hg 06/21/2024 Weight 256.6 lbs 06/21/2024 BMI 32.94 kg/m2 06/21/2024 Encounters Encounter Location Date Provider Diagnosis [address] [address] 07/26/2023 Provider Kristie Allergic rhinitis due to pollen J30.1 ; Chronic cough R05.3 and Essential (primary) hypertension I[facility] [address] [address] 12/29/2023 Chelsey Hagnakayli Chronic cough R05.3 ; Allergic rhinitis due to pollen J30.1 and Essential (primary) hypertension I10 [facility] [employer] [address] [address] 06/21/2024 Chelsey Hagnauer Chronic cough R05.3 and Allergic rhinitis due to pollen J30.1 Assessments Encounter Date Diagnosis (ICD Code) Assessment Notes Treatment Notes Treatment Clinical Notes Section Notes 07/26/2023 Allergic rhinitis due to pollen (ICD-10 - J30.1) 07/26/2023 Chronic cough (ICD-10 - R05.3) 12/29/2023 Allergic rhinitis due to pollen (ICD-10 - J30.1) Main presented at his initial visit with complaints of persistent cough for the last 5-6 years. He endorses frequent watery eyes and occasional nasal congestion and drainage, otherwise denies upper airway symptoms concerning for uncontrolled atopic disease. - Due to high OOP cost, positive and negative controls placed at a prior visit. Histamine control was 7 mm and [...] compared to any other interventions previously attempted. Cough is now resolved with omeprazole BID, however he admits to drainage. Discussed restarting olopatadine. He can continue Zyrtec and Singulair as he reports subjective benefit. - Consider reattempting skin testing later this year. - Follow-up in 6 months for further evaluation and management 12/29/2023 Chronic cough (ICD-10 - R05.3) Main presented [...] visit. 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 - Spirometry obtained previously that showed normal FEV1, FVC and FEV1%. - Records have been requested from Main's PCP to evaluate prior treatments. - Chest X-RAY ordered previously that showed normal report. - Cough is likely multifactorial, consider ARC vs GERD vs neurogenic cough vs other. Of note, Main states he does not cough at night. He is now established with Dr. Lazar, who completed PFT and CT scan. These returned normal per Bulmaro, no records to review. Dr. Lazar started omeprazole BID, which Bulmaro reports complete resolution with. - Due to persistent symptoms, trialed daily Trelegy, Bulmaro did not perceive any benefit from Trelegy. - CBC and total IgE ordered last visit. - Continue per Dr. Lazar and PCP, consider GI evaluation. - Treat atopic disease aggressively, see plan above. - Follow-up in 6 months for further evaluation and management 06/21/2024 Allergic rhinitis due to pollen (ICD-10 - J30.1) Main presented at his initial visit with complaints of persistent cough for the last 5-6 years. He endorses frequent watery eyes and occasional nasal congestion and drainage, otherwise denies upper airway symptoms concerning for uncontrolled atopic disease. - Due to high OOP cost, positive and negative controls placed at a prior visit. Histamine control was 7 mm and [...] compared to any other interventions previously attempted. Cough was later resolved with omeprazole BID, however now cough has recurred. His symptoms are clearly multifactorial. Will attempt change from Zyrtec to Opal, instructed Bulmaro to dose BID. Will also trial ipratropium bromide, which was beneficial to Bulmaro in the past. Highly recommend GI evaluation. - Consider reattempting skin testing later this year. - Follow-up in 1-2 months for further evaluation and management 06/21/2024 Chronic cough (ICD-10 - R05.3) Main presented [...] visit. 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 - Spirometry obtained previously that showed normal FEV1, FVC and FEV1%. - Records have been requested from Main's PCP to evaluate prior treatments. - Chest X-RAY ordered previously that showed normal report. - Cough is likely multifactorial, consider ARC vs GERD vs neurogenic cough vs other. Of note, Main states he does not cough at night. He is now established with Dr. Lazar, who completed PFT and CT scan. These returned normal per Bulmaro, no records to review. Dr. Lazar started omeprazole BID, which Bulmaro reported complete resolution with, though cough has now recurred. If symptoms do not approve as above, highly recommend GI evaluation due to presumed uncontrolled reflux. - Due to persistent symptoms, trialed daily Trelegy, Bulmaro did not perceive any benefit from Trelegy. - CBC and total IgE ordered last visit. - Continue per Dr. Lazar and PCP, consider GI evaluation. - Treat atopic disease aggressively, see plan above. - Follow-up in 1-2 months for further evaluation and management 12/29/2023 Essential (primary) hypertension (ICD-10 - I10) BP elevated today without symptoms of urgency or emergency. Continue serial checks and follow-up with PCP 07/26/2023 Essential (primary) hypertension (ICD-10 - I10) 12/16/2023 Other 12/29/2023 Other 06/21/2024 Other Plan Of Treatment Pending Test Test Name Order Date X ray : Chest 12/23/2022 IMMUNOGLOBULIN E 12/23/2022 Insurance Providers Payer Name Payer Address Payer Phone Subscriber Number Group Number Insured Name Patient Relationship to Insured Coverage Start Date Coverage End Date [facility] [id number] [place] [address] [id number] Tabitha Main Self - patient is the insured Medical (General) History Surgical History Surgery Date(Month/Year) Thyroidectomy 03/13/2019 cataract removal gallbladder removal 03/14/24
== END 2024-07-14 09:31 | disposition home or self-care (01) ==
PROVIDERS: PCP Internal Medicine; Visit Provider Internal Medicine Gastroenterology
DX: K76.0 Fatty (change of) liver, not elsewhere classified (principal)
CPT/HCPCS: 76700

== ENCOUNTER 2024-08-27 00:42 | Day surgery (SDC) | payer BC, SELFPAY ==
[2024-08-20 14:39] VITALS: BMI 30.8
--- OUTSIDE RECORDS SUMMARY | 2024-08-27 00:45 | XMS_ITS | Patient Health Record ---
Author Organization [facility] ([address]) Address [address] [place] [address] Care Team Providers Care Skidway Man Name Role Phone Anthony Deal MD Primary Care Provider Unavail Harrison Estrada Unavailable [phone] Chelsey Marcelino Unavailable [phone] Allergies No Known Allergies Reason For Referral No Information Medications Medication SIG (Take, Route, Frequency, Duration) Notes Start Date End Date Status MONTELUKAST SODIUM 10 mg 1 tab(s) orally once a day; Duration: 90 days Not-Taking Fluticasone Propionate 50 MCG/ACT 1 spray(s) in each nostril twice a day; Duration: 90 days 03/27/2023 Active Ipratropium [place] 0.06 % 2 spray(s) intranasally 3 times a day; Duration: 30 days Not-Taking Cetirizine HCl 10 MG 1 tab(s) orally once a day Not-Taking Omeprazole 20 MG Oral; Duration: 45 Days Not-Taking Fexofenadine HCl 180 MG 1 tablet Orally Twice a day; Duration: 30 days 06/21/2024 Active OLOPATADINE NASAL 665 MCG/INH 2 SPRAY(S) INTRANASALLY 2 TIMES A DAY; Duration: 90 DAYS *Please review for potential replacement for e-prescription and drug interaction check* 06/17/2023 Not-Taking Ipratropium [place] 0.06 % 4 sprays 2 sprays in each nostril Nasally Four times a day; Duration: 30 days 06/21/2024 Active Fluticasone Propionate 50 MCG/ACT 2 spray(s) in each nostril 2 times a day; Duration: 30 days 06/17/2023 Active OLOPATADINE HYDROCHLORIDE 665 MCG/INH 2 SPRAY(S) INTRANASALLY 2 TIMES A DAY; Duration: 90 DAYS *Please review for potential replacement for e-prescription and drug interaction check* 03/27/2023 Active ALBUTEROL (EQV-PROAIR HFA) 90 mcg/inh 2 puff(s) inhaled every 6 hours; Duration: 30 days Active AEROCHAMBER MDI SPACER - MOUTHPIECE (ADULT) N/A As directed PO Per asthma action plan; Duration: 30 days Active BYSTOLIC 20 mg 1 [...] twice a day; Duration: 90 days 03/27/2023 Not-Taking IPRATROPIUM NASAL 42 mcg/inh 2 spray(s) intranasally 3 times a day; Duration: 30 days Not-Taking OLOPATADINE NASAL 665 mcg/inh 2 spray(s) intranasally 2 times a day; Duration: 90 days Not-Taking Zinc Acetate 50 MG [...] times a day; Duration: 30 days Active Montelukast Sodium 10 MG 1 tablet Orally Once a day; Duration: 90 days Active Olopatadine HCl 0.6 % 2 sprays in each nostril Nasally Twice a day; Duration: 30 days Active Social History Tobacco Use: Social History Observation Description Date Details (start date - stop date) Never Smoker NA - NA Tobacco Control (Standard) Question Answer Notes Tobacco use: Nonsmoker Problems Problem Type SNOMED Code ICD Code Onset Dates Problem Status W/U Status Risk Notes Problem Allergic rhinitis caused by pollen (disorder) (50753327) Allergic rhinitis due to pollen (J30.1) Active confirmed Problem Chronic rhinitis (41292560) Chronic rhinitis (J31.0) Active confirmed Problem Chronic cough (21986002) Chronic cough (R05.3) Active confirmed Problem Cough, unspecified (R05.9) Active confirmed Vital Signs Blood pressure diastolic 74 mm Hg 06/21/2024 Oximetry 97 % 06/21/2024 Height 74 in 06/21/2024 Blood pressure systolic 112 mm Hg 06/21/2024 Weight 256.6 lbs 06/21/2024 BMI 32.94 kg/m2 06/21/2024 Encounters Encounter Location Date Provider Diagnosis [facility] [address] [place] [address] 12/29/2023 Chelseyjessie Shenlore Chronic cough R05.3 ; Allergic rhinitis due to pollen J30.1 and Essential (primary) hypertension I10 [facility] [address] [place] [address] 06/21/2024 Chelsey Hermelindalore Chronic cough R05.3 and Allergic rhinitis due to pollen J30.1 Assessments Encounter Date Diagnosis (ICD Code) Assessment Notes Treatment Notes Treatment Clinical Notes Section Notes 12/29/2023 Allergic rhinitis due to pollen (ICD-10 [...] visit. 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 - Spirometry obtained [...] visit. 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 - Spirometry obtained [...] checks and follow-up with PCP 12/16/2023 Other 12/29/2023 Other 06/21/2024 Other Plan Of Treatment Pending Test Test Name Order Date X ray : Chest 12/23/2022 IMMUNOGLOBULIN E 12/23/2022 Insurance Providers Payer Name Payer Address Payer Phone Subscriber Number Group Number Insured Name Patient Relationship to Insured Coverage Start Date Coverage End Date [facility] [address] [place] [address] [id number] Main Lu Self - patient is the insured Medical (General) History Surgical History Surgery Date(Month/Year) Thyroidectomy 03/13/2019 cataract removal gallbladder removal 03/14/24
--- OUTSIDE RECORDS SUMMARY | 2024-08-27 00:45 | XMS_ITS ---
Author Organization [facility] [employer] [place] ([address]) Address [address] [place] [address] Care Team Providers Care Application Technician Name Role Phone Anthony Deal MD Primary Care Provider Unavail able Harrison Camilo Unavailable [phone] Chelsey Marcelino Unavailable [phone] REASON FOR VISIT Cough follow-up - daily [...] day; Duration: 90 days 03/27/2023 Active Ipratropium [place] 0.06 % 2 spray(s) intranasally 3 times a day; Duration: 30 days Active Cetirizine HCl 10 MG 1 tab(s) orally once a day Active Cialis 5 MG 1 tab(s) orally once a day Active Vitamin D3 50 MCG 1 cap(s) orally once a day Active Encounters Encounter Location Date Provider Diagnosis [facility] [address] [place] [address] 12/16/2023 Chelsey Marcelino Chronic cough R05.3 ; [...] visit. 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 - Spirometry obtained [...] Dr. Lazar's team as his works at [facility] [employer] 12/16/2023 Allergic rhinitis due to pollen [...] visit. 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 - Spirometry obtained [...] Dr. Lazar's team as his works at [employer] Allergic rhinitis due to pollen Main [...] * Main MARIEDOB: 3 (63 yo M)Acc No.[id number]:12/16/2023 Progress Notes Patient: Main CAPPS Provider: April Marcelino DNP SECURITY CHECKER-C :1960 A ge:63 Y S ex:Male Date:12/16/2023 Address:[address] [place], [place] [id number] Pcp:Anthony Deal MD Subjective: * Chief Complaints: [...] HPI: * Introduction: HPI: Chema Marie, a [id number] male with past medical history significant for [...] orally once a day , Taking Ipratropium [place] 0.06 % Solution 2 spray(s) intranasally 3 [...] visit. 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 - Spirometry obtained [...] Dr. Lazar's team as his works at [facility] [employer] 3. E ssential (primary) hypertension Continue [...] day. * Procedure Codes: 9 6160 PT-FOCUSED [facility] RISK ASSMT, G8427 DOC MEDS VERIFIED W/PT [...] Management) * Billing Information: * Visit Code: 88369 Office Visit, Est Pt., Level 4. Modifiers: 25 * Procedure Codes: 66893 PT-FOCUSED [facility] RISK ASSMT. G8427 DOC MEDS VERIFIED W/PT OR RE. 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 He denies shortness [...]
--- OUTSIDE RECORDS SUMMARY | 2024-08-27 00:45 | XMS_ITS | Clinical Summary ---
Author Organization [facility] Address [address] [place] [address] Care Team Providers Care Cut Order Hand Name Role Phone Anthony Deal MD Primary Care Provider [phone] Allergies No known active allergies Medications cholecalciferol [...] (50 mg total) by mouth daily. Active omeprazole (PRILOSEC) 20 MG capsule Take [...] TAKE 1 TABLET DAILY 90 tablet 3 5 Active tadalafil (CIALIS) 5 MG tabletIndications :BPH with obstruction/lower urinary tract symptoms TAKE 1 TABLET (5 MG TOTAL) BY MOUTH DAILY. 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 Erectile dysfunction 01/12/2015 Hypogonadism male 01/12/2015 Obstructive sleep apnea 01/12/2015 Encounters Date Type Department Care Team Description 08/10/2024 Scan [facility] Scanned, [facility] 07/20/2024 Telephone [facility] Family & Internal Medicine [address] [address] Anthony Deal MD Surgical Clearance (Cataract extraction - Brandon Luke MD) 07/14/2024 Scan [facility]VCS Scanned, [facility] Ultrasound (SCAN) 06/22/2024 Scan [facility] Scanned, [facility] Lab (SCAN) 06/22/2024 Scan [facility] Scanned, [facility] Lab (SCAN) 06/14/2024 Scan [facility] Scanned, [facility] from Last 3 Months Immunizations Immunization Administration Dates Next Due Fluzone (IIV3, Trivalent, 0. 5 ML Prefilled Syringe) 12/08/2023 Fluzone 6 Months+ Quad (0.5 mL Prefilled Syringe) 11/13/2019 Influenza (Generic) 11/19/2017,11/10/2014 Influenza Adult (Generic) 12/01/2018,,11/10/2014,2012,01/14/2012 Tdap (Adacel) 07/09/2019 Zoster (Zostavax) 64696 Unt/0.65Ml 08/02/2016 Family History Medical History Relation [...] Sex Assigned at Male 02/16/2018 2:46 PM APARTMENT MANAGER Legal Sex Male 8:21 PM CDT Gender Identity Male 02/16/2018 2:46 PM APARTMENT MANAGER Sexual Orientation Straight 02/16/2018 2: 46 PM APARTMENT MANAGER Last Filed Vital Signs Vital Sign Reading Time Taken Comments Blood Pressure 118/78 04/06/2024 2:58 PM APARTMENT MANAGER Pulse 84 04/06/2024 2:58 PM APARTMENT MANAGER Temperature 36.5 C (97.7 F) 04/06/2024 2:58 PM APARTMENT MANAGER Respiratory Rate 16 04/06/2024 2:58 PM APARTMENT MANAGER Oxygen Saturation 97% 04/06/2024 2:58 PM APARTMENT MANAGER Inhaled Oxygen Concentration - - Weight 112 kg (246 lb 14.4 oz) 04/06/2024 2:58 P M APARTMENT MANAGER Height 188 cm (6' 2) 04/06/2024 2:58 PM APARTMENT MANAGER Body Mass Index 31.7 04/06/2024 2:58 PM APARTMENT MANAGER Plan of Treatment Health Maintenance Due Date Last Done Comments Pneumococcal Vaccine: 50+ Years (1 of 1 - PCV) 2012 Zoster Vaccines (3 of 3) 10/27/2021 09/01/2021, 07/12 Annual Physical 12/07/2024 12/08/2023 COVID-19 Vaccine ( season) 2024 09/01/2021, 01/31/2021, 05/15/2020, Additional history exists Postponed from 10/12/2023 (Patient Refused) Colorectal Cancer Screening FIT-DNA (3 Years) 12/20/2026 12/21/2023, 12/21/2023, 10/30/2020, Additional history exists DTaP, Tdap and Td Vaccines (2 - Td or Tdap) 07/08/2029 07/09/2019 RSV Immunization or 60+ Years Completed 02/18/2023 PHQ-2 (Physician Kashia) Completed 04/06/2024 Hepatitis C Completed 06/22/2024, 12/30/2023 Meningococcal B Vaccine Aged Out No l onger eligible based on patient's age to complete this topic Meningococcal Vaccine Aged Out No cat lizzy eligible based on patient's age to complete this topic RSV Immunizations Under 20 Months Aged Out No longer eligible based on patient's age to complete this topic Procedures Procedure Name Priority Date/Time Associated Diagnosis Comments ULTRASOUND GENERIC (SCAN ORDER) 07/14/2024 HEP C SCANNED ORDERS Routine 06/22/2024 OUTSIDE LAB (SCAN ORDER) 06/22/2024 OUTSIDE LAB (SCAN ORDER) 06/22/2024 OUTSIDE PT/INR (SCAN ORDER) 06/22/2024 OUTSIDE LAB (SCAN ORDER) 06/22/2024 COLOGUARD (EXACT SCIENCE) Routine 12/21/2023 10:40 AM APARTMENT MANAGER Colon cancer screening from Last 3 Months or Most Recently Relevant to Health Maintenance Results * ULTRASOUND GENERIC (SCAN ORDER) (07/14/2024) Anatomical Region Laterality Modality Other 07/14/2024 [employer] [facility] Scanned SCANNING Final Resu lt * HEP C SCANNED ORDERS (06/22/2024) [employer] [facility] Scanned SCANNING Final Resu lt [facility] ON[facility] * OUTSIDE PT/INR (SCAN ORDER) (06/22/2024) 06/22/2024 Result [employer] [facility] Scanned SCANNING Final Resu lt * OUTSIDE LAB (SCAN ORDER) (06/22/2024) Only the most recent of3 resultswithin the time period is included. 06/22/2024 [facility] Scanned SCANNING Final Resu lt * COLOGUARD (EXACT SCIENCE) (12/21/2023 10:40 AM APARTMENT MANAGER) COLOGUARD RESULT Negative Negative [employer] (CLIA #:[id number]) Comment: NEGATIVE TEST RESULT. A negative Cologuard [...] screened with both Cologuard and colonoscopy. (Anuradha Martinez al, N Engl J Med 2014;370(14):0862-9458) The normal value (reference range) for this assay is negative. COLOGUARD RE-SCREENING RECOMMENDATION: Periodic colorectal cancer screening is an important part of preventive healthcare for asymptomatic individuals at average risk for colorectal cancer. Following a negative Cologuard result, the [employer] Society and U.S. Multi-Society Task Force screening guidelines recommend a Cologuard re-screening interval of 3 years. References: [employer] Guideline for Colorectal Cancer Screening: https://www.cancer.org/cancer/wxglc-gaocpb-bmqeha/vquxiafmn-ehdsofshw-gbvvcdr/ac s-rec ommendations.html.; Maurisio DK, Sari CR, Luis Daniel HeK, Colorectal Cancer Screening: Recommendations for Physicians and Patients from the U.S. Multi-Society Task Force on Colorectal Cancer Screening , Am J Gastroenterology 2017; 112:0291-9836. TEST DESCRIPTION: Composite algorithmic analysis of stool [...] screened with both Cologuard and colonoscopy. (Anuradha Martinez al, N Engl J Med 2014;370(14):0819-0166.) Cologuard may produce a false negative or false positive result (no colorectal cancer or precancerous polyp present at colonoscopy follow up). A negative Cologuard test result does not guarantee the absence of CRC or advanced adenoma (pre-cancer). The current Cologuard screening interval is every 3 years. ([employer] Society and U.S. Multi-Society Task Force). Cologuard performance data in a 10,000 patient pivotal study using colonoscopy as the reference method can be accessed at the following location: www.[employer].com/results. Additional description of the Cologuard test process, warnings and precautions can be found at www.cologuard.com. STOOL STOOL SPECIMEN / Unknown 12/21/2023 10:40 AM APARTMENT MANAGER 12/23/2023 9:52 AM APARTMENT MANAGER us Anthony Deal MD BODY FLUIDS AND STOOLS ORDERAB LES Final Result [facility]) [address] [place] [place] [address], [employer] (CLIA #:[id number]) [address] [place] [place] [address] from Last 3 Months or Most Recently Relevant to Health Maintenance Insurance [facility] Advance Directives * Full Code (Latest Code Status on File) Date Activated Date Inactivated Comments 03/26/2024 11:30 AM 03/28/2024 5:00 PM Care Teams Cut Order Hand Relationship Specialty Start Date End Date Anthony Deal MD [address] [place] [id number] PCP - General INTERNAL MEDICINE 02/16/18
--- NOTE | 2024-08-27 13:23 | WPDANESEPPF ---
Anes - Initial Pre Proc Eval Procedure: Operation Date: 08/27/24 14:00 Proposed Procedures p Esophagogastroduodenoscopy - Larry Johns MD Date/Time: 08/27/24 13:23 Surgeon: Larry Johns MD Pre Op Diagnosis: Blood Thinner: no (Cardio DR & phone): Patient Data Age: 63 Gender: M Height: 1.88 m Weight: 108.9 kg Allergies Allergy/AdvReac Type Severity Reaction Status Date / Time Penicillins Allergy Unknown Unknown Verified 08/20/24 14:42 Home Medications ?Medication ?Instructions ?Recorded ?Confirmed ?Type cholecalciferol (vitamin D3) 125 125 mcg PO DAILY 02/18/19 08/20/24 History mcg (5,000 unit) tablet (Vitamin D3) tadalafil 5 mg tablet (Cialis) 5 mg PO DAILY 02/18/19 08/20/24 History acetaminophen 300 mg-codeine 30 mg 1 tablet PO Q8H PRN pain #30 tabs 03/02/19 08/20/24 Rx tablet (Tylenol-Codeine #3) fluticasone propionate 50 1 spray intranasal DAILY 08/27/23 08/20/24 History mcg/actuation nasal spray,suspension hydrochlorothiazide 25 mg tablet 25 mg PO DAILY 08/27/23 08/20/24 History meloxicam 15 mg tablet 15 mg PO DAILY 08/27/23 06/22/24 History montelukast 10 mg tablet 10 mg PO QPM 08/27/23 08/20/24 History olopatadine 0.6 % nasal spray 2 spray intranasal BID 08/27/23 06/22/24 History omeprazole 20 mg capsule,delayed 20 mg PO BID 90 days #180 caps 11/10/23 08/20/24 Rx release carvedilol 6.25 mg tablet 6.25 mg PO Q12H 30 days #60 tabs 08/03/24 08/20/24 Rx Patient hx anesthesia problems: none Family hx anesthesia problems: none Results Review: All pre-operative results and documents have been reviewed as part of the pre-operative evaluation. [facility] Past Medical History Medical History JACOB (obstructive sleep apnea) oral device Hypertension Family History Family History Father Hypertension Patient's father is Mother Hypertension Family history of development disorder Sibling Hypertension Cerebrovascular accident Social History Social History Smoking status: Never smoker Alcohol intake: never Substance use: never Substance use type: does not use Living arrangements: with family Spiritual care concerns: No Anes - Eval Final PreProcedure Day of Procedure 08/27/24 13:23 Patient weight: obese Heart: regular rate and rhythm Lungs: clear to auscultation Airway: Mallampati scale class II Neurological: alert and oriented Last oral intake: >/= 8 hours ASA classification: III Emergent: no Anesthetic plan: proceed Anesthesia type and monitoring: general GIVS and standard monitoring Results Review: All pre-operative results and documents have been reviewed as part of the pre-operative evaluation. Informed Consent: The patient's anesthetic plan and its attendant risks and benefits were discussed with the patient/family/POA. Questions were solicited and answers provided to the satisfaction of the patient/family/POA.
[2024-08-27 13:27] VITALS: BP 139/90; PULSE 97; RESP 16; TEMP 37; O2SAT 98
[2024-08-27] MEDS: LACTATED RINGERS 1,000 ML 150 ML IV CONT (13:35)
[2024-08-27] MEDS: SIMETHICONE ORAL SUSPENSION 20 MG/0.3 ML 30 ML BOTTLE 1.8 ML PO (13:36)
--- NOTE | 2024-08-27 14:17 | PM.IMHP ---
H&P: HPI History of Present Illness Date/Time: 08/27/24 14:17 Chief Complaint: Cirrhosis -rule out varices Narrative: this patient has metabolic syndrome, steatotic liver disease and recently found to have FibroScan score of 38.3 kPa. he is here for EGD to rule out varices. Review of Systems Review of Systems: All systems reviewed & are unremarkable except as noted in HPI and below PMFSH Past Medical History Medical History JACOB (obstructive sleep apnea) oral device Hypertension Family History Family History Father Hypertension Patient's father is Mother Hypertension Family history of development disorder Sibling Hypertension Cerebrovascular accident Social History Social History Smoking status: Never smoker Alcohol intake: never Substance use: never Substance use type: does not use Living arrangements: with family Spiritual care concerns: No Meds Home Medications and Allergies Home Medications ?Medication ?Instructions ?Recorded ?Confirmed ?Type cholecalciferol (vitamin D3) 125 125 mcg PO DAILY 02/18/19 08/27/24 History mcg (5,000 unit) tablet (Vitamin D3) tadalafil 5 mg tablet (Cialis) 5 mg PO DAILY 02/18/19 08/20/24 History acetaminophen 300 mg-codeine 30 mg 1 tablet PO Q8H PRN pain #30 tabs 03/02/19 08/20/24 Rx tablet (Tylenol-Codeine #3) fluticasone propionate 50 1 spray intranasal DAILY 08/27/23 08/27/24 History mcg/actuation nasal spray,suspension hydrochlorothiazide 25 mg tablet 25 mg PO DAILY 08/27/23 08/27/24 History meloxicam 15 mg tablet 15 mg PO DAILY 08/27/23 06/22/24 History montelukast 10 mg tablet 10 mg PO QPM 08/27/23 08/27/24 History olopatadine 0.6 % nasal spray 2 spray intranasal BID 08/27/23 06/22/24 History omeprazole 20 mg capsule,delayed 20 mg PO BID 90 days #180 caps 11/10/23 08/27/24 Rx release carvedilol 6.25 mg tablet 6.25 mg PO Q12H 30 days #60 tabs 08/03/24 08/27/24 Rx Allergies Allergy/AdvReac Type Severity Reaction Status Date / Time Penicillins Allergy Unknown Unknown Verified 08/27/24 13:25 Vital Signs Vital Signs - 24 hr 08/27/24 13:27 Temperature 98.6 F Pulse Rate 97 Respiratory Rate 16 Blood Pressure 139/90 Pulse Oximetry 98 Oxygen Delivery Room Air Exam Const: General: cooperative and healthy appearing Resp: Effort & Inspection: normal respiratory effort and able to speak in complete sentences Auscultation: clear to auscultation bilaterally Cardio: Rate: regular rate Rhythm: regular rhythm GI: Inspection: normal to inspection GI Palp: No No hepatosplenomegaly present Auscultation: normal bowel sounds Rectal Exam: deferred Skin: General skin exam: normal color Psych: Appearance: grossly normal Mental Status: mental status grossly normal Assessment and Plan Assessment and plan (1) Metabolic dysfunction-associated steatotic liver disease (MASLD): Code(s): K76.0 - Fatty (change of) liver, not elsewhere classified Status: Acute Assessment and Plan: The patient is deemed a good candidate for the procedure. Consent signed. Will proceed.
--- NOTE | 2024-08-27 14:27 | S_PTH ---
PATIENT: Main Lu LOC: JAMES #:[id number] AGE/SX: 63/M ROOM: RE08/27/[address]: Larry Johns MD : 1960 BED: DIS: 08/27/2024 SPEC #: [id number] RECD: 08/30/24 07:56 STATUS: NIURKA RERadha #: [id number] AUDRA: 08/27/24 14:[address]: Larry Johns DEPT: [facility] Surgical RECD BY: Fabiola Dye ENTERED: 08/30/24 07:56 SP TYPE: Surgical OTHR DR: Anthony DealMD Tissues: A - Gastric Biopsy B - Gastric Biopsy Procedures: Hematoxylin and Eosin Stain Gross and Microscopic Level 4
[2024-08-27 14:34] VITALS: BP 113/74; PULSE 88; RESP 22; O2SAT 94
[2024-08-27 14:44] VITALS: BP 116/77; PULSE 79; RESP 15; O2SAT 95
[2024-08-27 14:54] VITALS: BP 113/80; PULSE 75; RESP 19; O2SAT 96
== END 2024-08-27 15:05 | disposition home or self-care (01) ==
PROVIDERS: PCP Internal Medicine; Referring Provider Internal Medicine Gastroenterology; Visit Provider Internal Medicine Gastroenterology
PROC: 0DJ08ZZ Inspection of Upper Intestinal Tract, Via Natural or Artificial Opening Endoscopic (ICD-10-PCS; CPT 43239; principal; 2024-08-27 14:00)
DX: K74.60 Unspecified cirrhosis of liver (principal); K29.30 Chronic superficial gastritis without bleeding; K76.6 Portal hypertension; K31.89 Other diseases of stomach and duodenum; I10 Essential (primary) hypertension; G47.33 Obstructive sleep apnea (adult) (pediatric); E66.9 Obesity, unspecified; Z68.30 Body mass index [BMI] 30.0-30.9, adult
CPT/HCPCS: 43239; 88305; J2003; J2704; J7120

== ENCOUNTER 2024-08-31 08:15 | Outpatient (RCR) | payer BC, SELFPAY ==
[2024-07-08 08:15] VITALS: BMI 32.1
[2024-07-08 08:17] VITALS: BMI 32.1
[2024-08-31 08:20] VITALS: BMI 30.7
[2024-08-31 08:22] VITALS: BMI 30.7
--- NOTE | 2024-08-31 09:32 | PCDIET ---
MNT follow up completed today; Consult end of June Notes faxed to provider.
== END 2024-09-27 10:36 | disposition home or self-care (01) ==
LOC: ANHDMC 08:15
PROVIDERS: PCP Internal Medicine; Visit Provider Internal Medicine Gastroenterology
DX: K76.0 Fatty (change of) liver, not elsewhere classified (principal); Z71.3 Dietary counseling and surveillance
CPT/HCPCS: 97802; 97803

== ENCOUNTER 2025-01-16 14:16 | Emergency (ER) | payer BC, SELFPAY ==
--- OUTSIDE RECORDS SUMMARY | 2023-12-16 11:30 | XMS_ITS ---
Author Organization [facility] [employer] [place] ([address]) Address [address] [place] [address] Care Team Providers Care Event Specialist Food Demonstrator Name Role Phone Anthony Deal MD Primary Care Provider Unavail able Harrison Camilo Unavailable [phone] Chelsey Marcelino Unavailable [phone] REASON FOR VISIT Cough follow-up - daily cough that has been ongoing for 5-6 years. Seen by his PCP who has tried everything. Has been on daily inhalers, however unsure which ones. Also treated for GERD without benefit. Now using FLonase, Olopatadine nasal and Zyrtec with improvement in cough., ARC follow-up - watery eyes and persistent cough. Used olopatadine nasal spray in the past without benefit. ImmunoCapselevated to cockroach and weeds. 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 Medications Medication SIG (Take, Route, Frequency, Duration) Notes Start Date End Date Status Magnesium Oxide 400 MG 1 tab(s) orally once a day Active hydroCHLOROthiazide 25 MG 1 tab(s) orall y once a day Active Vitamin B-12 1000 MCG 1 tab(s) orally once a day Active Vitamin B6 100 MG 1 tab(s) orally once a day Active Zinc Acetate 50 MG 1 cap(s) orally 3 times a day Active Bystolic 20 MG 1 tab(s) orally once a day Active FLUTICASONE NASAL 50 mcg/inh 2 spray(s) in each nostril 2 times a day; Duration: 30 days Active FLUTICASONE PROPIONATE 50 mcg/inh 1 spray(s) in each nostril twice a day; Duration: 90 days 03/27/2023 Active OLOPATADINE NASAL 665 mcg/inh 2 spray(s) intranasally 2 times a day; Duration: 90 days Active IPRATROPIUM NASAL 42 mcg/inh 2 spray(s) intranasally 3 times a day; Duration: 30 days Active VITAMIN D3 50 mcg 1 cap(s) orally once a day Active VITAMIN B-12 1000 mcg 1 tab(s) orally once a day Active MONTELUKAST SODIUM 10 mg 1 tab(s) orally once a day; Duration: 90 days Active CETIRIZINE HYDROCHLORIDE 10 mg 1 tab(s) orally once a day Active CIALIS 5 mg 1 tab(s) orally once a day Active VITAMIN B6 100 mg 1 tab(s) orally once a day Active ZINC ACETATE 50 mg 1 cap(s) orally 3 times a day Active MAGNESIUM OXIDE 400 mg 1 tab(s) orally once a day Active HYDROCHLOROTHIAZIDE 25 mg 1 tab(s) orall y once a day Active BYSTOLIC 20 mg 1 tab(s) orally once a day Active Fluticasone Propionate 50 MCG/ACT 2 spray(s) in each nostril 2 times a day; Duration: 30 days 06/17/2023 Active AEROCHAMBER MDI SPACER - MOUTHPIECE (ADULT) N/A As directed PO Per asthma action plan; Duration: 30 days Active ALBUTEROL (EQV-PROAIR HFA) 90 mcg/inh 2 puff(s) inhaled every 6 hours; Duration: 30 days Active Montelukast Sodium 10 mg TAKE 1 TABLET DAILY Active OLOPATADINE NASAL 665 MCG/INH 2 SPRAY(S) INTRANASALLY 2 TIMES A DAY; Duration: 90 DAYS *Please review for potential replacement for e-prescription and drug interaction check* 06/17/2023 Active OLOPATADINE HYDROCHLORIDE 665 MCG/INH 2 SPRAY(S) INTRANASALLY 2 TIMES A DAY; Duration: 90 DAYS *Please review for potential replacement for e-prescription and drug interaction check* 03/27/2023 Active Fluticasone Propionate 50 MCG/ACT 1 spray(s) in each nostril twice a day; Duration: 90 days 03/27/2023 Active Ipratropium Sumpter 0.06 % 2 spray(s) intranasally 3 times a day; Duration: 30 days Active Cetirizine HCl 10 MG 1 tab(s) orally once a day Active Cialis 5 MG 1 tab(s) orally once a day Active Vitamin D3 50 MCG 1 cap(s) orally once a day Active Encounters Encounter Location Date Provider Diagnosis [facility] [address] [place] [address] 12/16/2023 Chelsey Marcelino Chronic cough R05.3 ; Allergic rhinitis due to pollen J30.1 and Essential (primary) hypertension I10 Assessments Encounter Date Diagnosis (ICD Code) Assessment Notes Treatment Notes Treatment Clinical Notes Section Notes 12/16/2023 Chronic cough (ICD-10 - R05.3) Main presented at his initial visit with complaints of daily, dry cough that has been persistent for the last 5-6 years. States that cold weather, fragrances, talking/laughing exacerbate his symptoms. He has seen his PCP numerous times and states we have tried everything. Attempted treatments have included daily inhalers, GERD treatment and evaluation by ENT. Is not sure, however, what specific medications or inhalers he has tried. No records to review despite requesting them last visit. 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 - Spirometry obtained previously that showed normal FEV1, FVC and FEV1%. - Records have been requested from Main's PCP to evaluate prior treatments. - Chest X-RAY ordered previously that showed normal report. - Cough is likely multifactorial, consider ARC vs GERD vs neurogenic cough vs other. Of note, Main states he does not cough at night. See plans above. - Sent an albuterol inhaler previously, which Bulmaro has used a handful of times without perceived benefit. - Due to persistent symptoms, trialed daily Trelegy, Bulmaro did not perceive any benefit from Trelegy. - Previously started trial of aggressive treatment for atopic disease. He presented 4 weeks later reporting an 85% improvement in his cough. At this time, it seems Bulmaro's atopic disease is driving his symptoms. Continue medication regimen as plan above. - CBC and total IgE ordered last visit. - Consider consult with Pulmonology due to ongoing symptoms, we again discussed this today. Bulmaro reports he is going to set up an appointment with pulmonology, appreciate PCP sending referral. Bulmaro is interested in seeing Dr. Lazar's team as his works at [employer] 12/16/2023 Allergic rhinitis due to pollen (ICD-10 - J30.1) Main presented at his initial visit with complaints of persistent cough for the last 5-6 years. He endorses frequent watery eyes and occasional nasal congestion and drainage, otherwise denies upper airway symptoms concerning for uncontrolled atopic disease. - Due to high OOP cost, positive and negative controls placed last visit. 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 Skin testing is not able to be reliably performed. - Aeroallergen ImmunoCaps ordered last visit that showed total IgE 26, elevated levels to cockroach and one weed, all other allergens negative. - After discussion with Bulmaro, we previously started trial of daily Zyrtec, Singulair and Ryaltris nasal spray. He then reported an 85% improvement in his daily cough, reports better improvement with this regimen compared to any other interventions previously attempted. Bulmaro again endorses improvement in symptoms, however reports occasional nose bleed with BID Flonase and olopatadine. - Hold Flonase at this time, continue olopatadine BID. - Will continue above medications. Consider reattempting skin testing later this year. - Follow-up in 6 months for further evaluation and management 12/16/2023 Essential (primary) hypertension (ICD-10 - I10) BP elevated today without symptoms of urgency or emergency. Continue serial checks and follow-up with PCP 12/16/2023 Other Plan Of Treatment Medication Medication Name Sig Start Date Stop Date Notes FLUTICASONE NASAL 50 mcg/inh 2 spray(s) in each nostril 2 times a day; Duration: 30 days OLOPATADINE NASAL 665 mcg/inh 2 spray(s) intranasally 2 times a day; Duration: 90 days VITAMIN D3 50 mcg 1 cap(s) orally once a day VITAMIN B-12 1000 mcg 1 tab(s) orally on ce a day MONTELUKAST SODIUM 10 mg 1 tab(s) orally once a day; Duration: 90 days CETIRIZINE HYDROCHLORIDE 10 mg 1 tab(s) orally once a day CIALIS 5 mg 1 tab(s) orally once a day VITAMIN B6 100 mg 1 tab(s) orally once a day ZINC ACETATE 50 mg 1 cap(s) orally 3 ti mes a day MAGNESIUM OXIDE 400 mg 1 tab(s) orally o nce a day HYDROCHLOROTHIAZIDE 25 mg 1 tab(s) orall y once a day BYSTOLIC 20 mg 1 tab(s) orally once a day AEROCHAMBER MDI SPACER - MOUTHPIECE (ADULT) N/A As directed PO Per asthma action plan; Duration: 30 days ALBUTEROL (EQV-PROAIR HFA) 9 0 mcg/inh 2 puff(s) inhaled every 6 hours; Duration: 30 days Treatment Notes Assessment Notes Chronic cough Main presented at his initial visit with complaints of daily, dry cough that has been persistent for the last 5-6 years. States that cold weather, fragrances, talking/laughing exacerbate his symptoms. He has seen his PCP numerous times and states we have tried everything. Attempted treatments have included daily inhalers, GERD treatment and evaluation by ENT. Is not sure, however, what specific medications or inhalers he has tried. No records to review despite requesting them last visit. 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 - Spirometry obtained previously that showed normal FEV1, FVC and FEV1%. - Records have been requested from Main's PCP to evaluate prior treatments. - Chest X-RAY ordered previously that showed normal report. - Cough is likely multifactorial, consider ARC vs GERD vs neurogenic cough vs other. Of note, Main states he does not cough at night. See plans above. - Sent an albuterol inhaler previously, which Bulmaro has used a handful of times without perceived benefit. - Due to persistent symptoms, trialed daily Trelegy, Bulmaro did not perceive any benefit from Trelegy. - Previously started trial of aggressive treatment for atopic disease. He presented 4 weeks later reporting an 85% improvement in his cough. At this time, it seems Bulmaro's atopic disease is driving his symptoms. Continue medication regimen as plan above. - CBC and total IgE ordered last visit. - Consider consult with Pulmonology due to ongoing symptoms, we again discussed this today. Bulmaro reports he is going to set up an appointment with pulmonology, appreciate PCP sending referral. Bulmaro is interested in seeing Dr. Lazar's team as his works at [employer] Allergic rhinitis due to pollen Main presented at his initial visit with complaints of persistent cough for the last 5-6 years. He endorses frequent watery eyes and occasional nasal congestion and drainage, otherwise denies upper airway symptoms concerning for uncontrolled atopic disease. - Due to high OOP cost, positive and negative controls placed last visit. 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 Skin testing is not able to be reliably performed. - Aeroallergen ImmunoCaps ordered last visit that showed total IgE 26, elevated levels to cockroach and one weed, all other allergens negative. - After discussion with Bulmaro, we previously started trial of daily Zyrtec, Singulair and Ryaltris nasal spray. He then reported an 85% improvement in his daily cough, reports better improvement with this regimen compared to any other interventions previously attempted. Bulmaro again endorses improvement in symptoms, however reports occasional nose bleed with BID Flonase and olopatadine. - Hold Flonase at this time, continue olopatadine BID. - Will continue above medications. Consider reattempting skin testing later this year. - Follow-up in 6 months for further evaluation and management Essential (primary) hypertension BP elev ated today without symptoms of urgency or emergency. 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 Cough follow-up - daily cough that has been ongoing for 5-6 years. Seen by his PCP who has tried everything. Has been on daily inhalers, however unsure which ones. Also treated for GERD without benefit. Now using FLonase, Olopatadine nasal and Zyrtec with improvement in cough.. 2. ARC follow-up - watery eyes and persistent cough. Used olopatadine nasal spray in the past without benefit. ImmunoCaps elevated to cockroach and weeds. 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 * HPI: * Introduction: HPI: Chema Marie, a [id number] male with past medical history significant for cough and hypertensionwho returns for follow-up evaluation. He is alone for today's visit. Previously Bulmaro reported that he has been experiencing a persistent, dailycough that has been ongoing for the last 5-6 years. He has seen his PCP, , numerous times and states we have tried everything. States they have tried daily inhalers, medications for reflux, and nasal sprays. He isunable to provide specific names of medications he has tried in the past however,records were requested last visit however still not obtained. Cold air, strong fragrances and laughing/talking exacerbate hissymptoms. Previously we ordered a chest X-RAY that returned normal per report. We also trialed ipratropium nasal spray TID, which Bulmaro reports has improved his cough, though it still persisted. Also sent him an albuterol inhaler, which he has tried a handful of times but denies benefit. Due to ongoing symptoms trialed one month of daily Trelegy, however again Bulmaro denies any perceived benefit. Prior spirometry was normal. 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 He denies shortness of breath or wheezing.Denies unintended weight loss, body aches, fevers or chills. We previously attempted skin testing to aeroallergens, however we were unable to reliably perform test. We started trial of daily Zyrtec, Singulair and Ryaltris nasal spray, which last visit Bulmaro reported a 85% improvement in his cough. Bulmaro returns today again reporting improvement in cough, though notes that fans or talking will still exacerbate symptoms. He was unable to obtain refill of Ryaltris, he has been using Flonase and olopatadine twice daily. Does report occasional nose bleed, otherwise feels symptoms are still better controlled. Chema contreras endorses watery eyes and occasionalnasal congestion and post-nasal drip. Otherwise, denies upper airway symptoms.Feels his symptoms persist year-round, less severe during the Summer. Herecently trialed olopatadine nasal spray for several months, but stopped it dueto lack of benefit. 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 Aeroallergen ImmunoCaps were ordered that showed total IgE of 26, detectable levels noted to cockroach and one weed. Today, he reports no fevers, chills, night sweats or other constitutional symptoms. * ROS: A LLERGY: runny nose N o. s cratchy throat N o. i tchy eyes N o. e ar fullness N o. s inus congestion N o. P ositive p er the HPI and history, otherwise unremarkable. S PECIAL SENSES: Positve for n one. C ONSTITUTIONAL: weight gain Y es. l oss of appetite N o. f ever?No. w eakness N o. w eight loss N o. f atigue N o. n ight sweats?No. P ositive for n one. E NT: cold N o. c ough Y es. e pistaxis N o. h earing loss N o. c hange in voice N o. s ore throat N o. r inging in ears?No. s inus pain N o. P ositive p er the HPI and history, otherwise unremarkable. R ESPIRATORY: shortness of breath Y es. c ough Y es. P ositive p er the HPI and history, otherwise unremakable. O PHTHALMOLOGY: Positive for p er the HPI and history, otherwise unremarkable. E NDOCRINOLOGY: fatigue N o. p olydipsia N o. p olyuria N o. w eight loss N o. s leep disturbance N o. c old intolerance N o. h eat intolerance N o. d iabetes N o. P ositive for n one. C ARDIOLOGY: chest pain N o. p alpitations N o. l eg edema?No. d izziness N o. s hortness of breath Y es. P ositive for n one. G ASTROENTEROLOGY: Positive for n one. U ROLOGY: Positive for n one. D ERMATOLOGY: rash Y es. m ole N o. l umps N o. d ry or sensitive skin Y es. h hudson (urticaria) N o. a cne N o. s kin cancer N o. P ositive for p er the HPI and history, otherwise unremakable. N EUROLOGY: Positive for n one. H EMATOLOGY/LYMPH: Positive for n one. M USCULOSKELETAL: Positive for n one. P SYCHOLOGY: Positive for n one. A ll other review of systems per the HPI and history, otherwise unremarkable. * Medical History: * Medications: T aking BYSTOLIC 20 mg tablet 1 tab(s) orally once a day , Taking HYDROCHLOROTHIAZIDE 25 mg tablet 1 tab(s) orally once a day , Taking MAGNESIUM OXIDE 400 mg tablet 1 tab(s) orally once a day , Taking ZINC ACETATE 50 mg capsule 1 cap(s) orally 3 times a day , Taking VITAMIN B6 100 mg tablet 1 tab(s) orally once a day , Taking VITAMIN B-12 1000 mcg tablet 1 tab(s) orally once a day , Taking VITAMIN D3 50 mcg capsule 1 cap(s) orally once a day , Taking CIALIS 5 mg tablet 1 tab(s) orally once a day , Taking CETIRIZINE HYDROCHLORIDE 10 mg tablet 1 tab(s) orally once a day , Taking MONTELUKAST SODIUM 10 mg tablet 1 tab(s) orally once a day , Taking IPRATROPIUM NASAL 42 mcg/inh spray 2 spray(s) intranasally 3 times a day , Taking FLUTICASONE PROPIONATE 50 mcg/inh spray 1 spray(s) in each nostril twice a day , Taking FLUTICASONE NASAL 50 mcg/inh spray 2 spray(s) in each nostril 2 times a day , Taking ALBUTEROL (EQV-PROAIR HFA) 90 MCG/INH AEROSOL 2 PUFF(S) INHALED EVERY 6 HOURS , Notes to Pharmacist: *Please review for potential replacement for e-prescription and drug interaction check*, Taking AEROCHAMBER MDI SPACER - MOUTHPIECE (ADULT) N/A SPACER FOR MDI USE DIRECTED PO PER ASTHMA ACTION PLAN , Notes to Pharmacist: *Please review for potential replacement for e-prescription and drug interaction check*, Taking Bystolic 20 MG Tablet 1 tab(s) orally once a day , Taking hydroCHLOROthiazide 25 MG Tablet 1 tab(s) orally once a day , Taking Magnesium Oxide 400 MG Tablet 1 tab(s) orally once a day , Taking Zinc Acetate 50 MG Capsule 1 cap(s) orally 3 times a day , Taking Vitamin B6 100 MG Tablet 1 tab(s) orally once a day , Taking Vitamin B-12 1000 MCG Tablet 1 tab(s) orally once a day , Taking Vitamin D3 50 MCG Capsule 1 cap(s) orally once a day , Taking Cialis 5 MG Tablet 1 tab(s) orally once a day , Taking Cetirizine HCl 10 MG Tablet 1 tab(s) orally once a day , Taking Ipratropium Sumpter 0.06 % Solution 2 spray(s) intranasally 3 times a day , Taking Fluticasone Propionate 50 MCG/ACT Suspension 1 spray(s) in each nostril twice a day , Taking OLOPATADINE HYDROCHLORIDE 665 MCG/INH SPRAY 2 SPRAY(S) INTRANASALLY 2 TIMES A DAY , Notes to Pharmacist: *Please review for potential replacement for e-prescription and drug interaction check*, Taking OLOPATADINE NASAL 665 MCG/INH SPRAY 2 SPRAY(S) INTRANASALLY 2 TIMES A DAY , Notes to Pharmacist: *Please review for potential replacement for e-prescription and drug interaction check*, Taking Fluticasone Propionate 50 MCG/ACT Suspension 2 spray(s) in each nostril 2 times a day , Taking OLOPATADINE NASAL 665 MCG/INH SPRAY 2 SPRAY(S) INTRANASALLY 2 TIMES A DAY , Notes to Pharmacist: *Please review for potential replacement for e-prescription and drug interaction check*, Taking Montelukast Sodium 10 mg Tablet TAKE 1 TABLET DAILY Objective: * Vitals: * Examination: G eneral examination: General appearance: p leasant, well-developed, well-nourished , male , in no apparent distress , speaking in full sentences. HEENT: conjunctiva are normal bilaterally , TMs without evidence of acute infection , turbinates 1+ swollen and pale inferiorly bilaterally, small amount of bloody drainage noted in right nare, no polyps noted , no septal perforation , posterior oropharynx is clear without exudates , erythema on pharyngeal wall, no exudates , tonsils are present , no tongue swelling , and uvula is midline. Oral cavity: n ormal, no lesions. Breasts : n ot performed. Heart: R RR, S1-S2, no murmurs, no rubs, no gallops. Lungs: c lear to auscultation in all lung helms, no wheezes or crackles. Neurologic exam: u nremarkable. Back: n ormal. Genitalia: n ot performed. Assessment: * Assessment: 1. A llergic rhinitis due to pollen - J30.1 (Primary) 2 . C hronic cough - R05.3 3 . E ssential (primary) hypertension - I10 Plan: * Treatment: 2. C hronic cough Continue ALBUTEROL (EQV-PROAIR HFA) aerosol, 90 mcg/inh, 2 puff(s), inhaled, every 6 hours, 30 days, 1, Refills 0; C ontinue AEROCHAMBER MDI SPACER - MOUTHPIECE (ADULT) Spacer for MDI use, N/A, As directed, PO, Per asthma action plan, 30 days, 1, Refills 11. Notes: Main presented at his initial visit with complaints of daily, dry cough that has been persistent for the last 5-6 years. States that cold weather, fragrances, talking/laughing exacerbate his symptoms. He has seen his PCP numerous times and states we have tried everything. Attempted treatments have included daily inhalers, GERD treatment and evaluation by ENT. Is not sure, however, what specific medications or inhalers he has tried. No records to review despite requesting them last visit. 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 - Spirometry obtained previously that showed normal FEV1, FVC and FEV1%. - Records have been requested from Main's PCP to evaluate prior treatments. - Chest X-RAY ordered previously that showed normal report. - Cough is likely multifactorial, consider ARC vs GERD vs neurogenic cough vs other. Of note, Main states he does not cough at night. See plans above. - Sent an albuterol inhaler previously, which Bulmaro has used a handful of times without perceived benefit. - Due to persistent symptoms, trialed daily Trelegy, Bulmaro did not perceive any benefit from Trelegy. - Previously started trial of aggressive treatment for atopic disease. He presented 4 weeks later reporting an 85% improvement in his cough. At this time, it seems Bulmaro's atopic disease is driving his symptoms. Continue medication regimen as plan above. - CBC and total IgE ordered last visit. - Consider consult with Pulmonology due to ongoing symptoms, we again discussed this today. Bulmaro reports he is going to set up an appointment with pulmonology, appreciate PCP sending referral. Bulmaro is interested in seeing Dr. Lazar's team as his works at [employer] 3. E ssential (primary) hypertension Continue BYSTOLIC tablet, 20 mg, 1 tab(s), orally, once a day; C ontinue HYDROCHLOROTHIAZIDE tablet, 25 mg, 1 tab(s), orally, once a day. Notes: BP elevated today without symptoms of urgency or emergency. Continue serial checks and follow-up with PCP 4. O thers Continue MAGNESIUM OXIDE tablet, 400 mg, 1 tab(s), orally, once a day; C ontinue ZINC ACETATE capsule, 50 mg, 1 cap(s), orally, 3 times a day; C ontinue VITAMIN B6 tablet, 100 mg, 1 tab(s), orally, once a day; C ontinue VITAMIN B-12 tablet, 1000 mcg, 1 tab(s), orally, once a day; C ontinue VITAMIN D3 capsule, 50 mcg, 1 cap(s), orally, once a day; C ontinue CIALIS tablet, 5 mg, 1 tab(s), orally, once a day. * Procedure Codes: [address] [facility] RISK ASSMT, G8427 DOC MEDS VERIFIED W/PT OR RE * Preventive Medicine: Counseling: D iet a s tolerated. E xercise C ontinue activity as usual. M edication instruction: W atch for side effects of prescribed medications, Nasal steroid/antihistamine instruction: avoid septum, Singulair (montelukast: serious neuropsychiatric events have been reported in patients; monitor for neuropsychiatric symptoms. E ducation: G ENERAL EDUCATION: Our staff spent an additional 15 minutes in direct contact with the patient educating them on their current diagnoses and proper treatment and prevention of symptoms and the proper use of medications, ASTHMA EDUCATION:, Our staff discussed pulmonary function testing and results with the patient/family, Our staff reviewed the patient's asthma action plan. P atient education material sent to portal? Y es C are goal follow up plan BMI management provided Y es Above Normal BMI Follow-up D ietary management education, guidance, and counseling B P Management: LIFESTYLE RECOMMENDATION: H ypertension education REFERRAL TO ALTERNATIVE / PRIMARY CARE PROVIDER: Chema taverasal to general physician * Follow Up: 6 Months (Reason: Evaluation and Management) * Billing Information: * Visit Code: 27472 Office Visit, Est Pt., Level 4. Modifiers: 25 * Procedure Codes: [id number] [facility] RISK ASSMT. G8427 DOC MEDS VERIFIED W/PT OR RE. 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 He is alone for today's visit. Previously Bulmaro reported that he has been experiencing a persistent, daily cough that has been ongoing for the last 5-6 years. He has seen his PCP, Dr. Deal, numerous times and states we have tried everything. States they have tried daily inhalers, medications for reflux, and nasal sprays. He is unable to provide specific names of medications he has tried in the past however, records were requested last visit however still not obtained. Cold air, strong fragrances and laughing/talking exacerbate his symptoms. Previously we ordered a chest X-RAY that returned normal per report. We also trialed ipratropium nasal spray TID, which Bulmaro reports has improved his cough, though it still persisted. Also sent him an albuterol inhaler, which he has tried a handful of times but denies benefit. Due to ongoing symptoms trialed one month of daily Trelegy, however again Bulmaro denies any perceived benefit. Prior spirometry was normal. 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 He denies shortness of breath or wheezing. Denies unintended weight loss, body aches, fevers or chills. We previously attempted skin testing to aeroallergens, however we were unable to reliably perform test. We started trial of daily Zyrtec, Singulair and Ryaltris nasal spray, which last visit Bulmaro reported a 85% improvement in his cough. Bulmaro returns today again reporting improvement in cough, though notes that fans or talking will still exacerbate symptoms. He was unable to obtain refill of Ryaltris, he has been using Flonase and olopatadine twice daily. Does report occasional nose bleed, otherwise feels symptoms are still better controlled. Main endorses watery eyes and occasional nasal congestion and post-nasal drip. Otherwise, denies upper airway symptoms. Feels his symptoms persist year-round, less severe during the Summer. He recently trialed olopatadine nasal spray for several months, but stopped it due to lack of benefit. 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 Aeroallergen ImmunoCaps were ordered that showed total IgE of 26, detectable levels noted to cockroach and one weed. Today, he reports no fevers, chills, night sweats or other constitutional symptoms Examination Category Sub-Category Detail Notes Category Not es General examination HEENT: conjunctiva are normal bilaterally , TMs without evidence of acute infection , turbinates 1+ swollen and pale inferiorly bilaterally, small amount of bloody drainage noted in right nare, no polyps noted , no septal perforation , posterior oropharynx is clear without exudates , erythema on pharyngeal wall, no exudates , tonsils are present , no tongue swelling , and uvula is midline Heart: RRR, S1-S2, no murmu rs, no rubs, no gallops Lungs: clear to auscultatio n in all lung helms, no wheezes or crackles General appearance: pleasant, well-devel oped, well-nourished , male , in no apparent distress , speaking in full sentences Neurologic exam: unremarkable Oral cavity: normal, no lesions Breasts : not performed Back: normal Genitalia: not performed
[2025-01-16] VITALS (37 sets, daily range): BP systolic 108–150; BP diastolic 59–110; PULSE 96–158; RESP 14–37; TEMP 36.6–38.4; O2SAT 92–100
--- NOTE | ~2025-01-16 | CT_ITS ---
Main Lu EXAMINATION: CT abdomen pelvis w con COMPARISON: None HISTORY: Nausea x5 days, Obstructive jaundice TECHNIQUE: Axial images were obtained through the abdomen, pelvis post administration of IV contrast. Oral contrast was also administered. Coronal reconstruction images were obtained from the axial views. CT scan performed using dose optimization techniques including the following automated exposure control; adjustment of mA and/or kV; use of iterative reconstruction technique. Automatic exposure control was used to reduce radiation dose. Permanent radiation dose record is archived to PACS. FINDINGS: CT abdomen: LUNG BASES: The lung bases are clear. The visualized portions of the heart and pericardium are unremarkable. LIVER: The liver is enlarged. The liver demonstrates a heterogeneous appearance. There are subcentimeter liver lesions incompletely evaluated. The liver contours appear slightly nodular. The main portal vein is patent. There is intrahepatic biliary duct dilation noted. SPLEEN: The spleen is enlarged measuring 16.5 cm.. KIDNEYS: Right Kidney: Right kidney lower pole 2 mm calculus, subcentimeter probable renal cysts. Left Kidney: Left kidney subcentimeter probable renal cysts, no hydronephrosis, mid pole 2 mm calculus. ADRENAL GLANDS: Unremarkable. PANCREAS: Mild atrophy of the pancreas. GALLBLADDER/BILIARY: Cholelithiasis. CBD is dilated measuring 1.1 cm tapering abruptly with a filling defect noted distally consistent with choledocholithiasis. STOMACH AND ESOPHAGUS: Small hiatal hernia. BOWEL/MESENTERY: Moderate fecal content, no colitis or diverticulitis. Mild diverticulosis. Appendix is normal. Mesentery normal. No thickened or dilated loops of small bowel. ADENOPATHY/RETROPERITONEUM: No lymphadenopathy. AORTA/VASCULATURE: Normal caliber aorta. FREE FLUID OR FREE AIR: Small amount of free fluid.. CT pelvis: SOLID ORGANS/REPRODUCTIVE: Prostate is enlarged, correlate with PSA. BLADDER: Within normal limits. OSSEOUS STRUCTURES: No acute osseous abnormality.No suspicious lesions. OVERLYING SOFT TISSUES: Small bilateral fat-containing inguinal hernia. IMPRESSION: 1. Cholelithiasis with choledocholithiasis. 2. 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 3. Incidental findings detailed above Reviewed, dictated and finalized at location P. STOR TESTING MACHINE OPERATOR
--- NOTE | 2025-01-16 14:29 | ED_ITS ---
HPI - General Adult General Chief complaint: Unspecified Stated complaint: JAUNDICE Time Seen by Provider: 01/16/25 14:19 Source: patient and family Mode of arrival: ambulatory Limitations: no limitations History of Present Illness HPI narrative: 64-year-old male with a history of hypertension, JACOB, chronic low back pain/lumbar canal stenosis, non alcoholic cirrhosis with portal hypertensive gastritis presents to the ED with a 5 day history of --yellow discoloration of the eye and skin. --not feeling well for the past few days. Decreased appetite. Has nausea. Abdominal distension --allen-colored stools which flowed on water. --had chills. Did not check his temperature. --intermittent epigastric pain which lasts for an hours spontaneous resolution. Food causes exacerbation of his epigastric pain. No radiation of the pain. He had laparoscopic cholecystectomy in March of 2024. Subsequently he has not had any abdominal pain or episodes of jaundice. Patient had some stones in the cystic duct which was not removed during the time of cholecystectomy. Onset (ago): day(s) (Five days) Radiation: non-radiation Severity: moderate Severity scale (1-10): 6 Quality: aching Pain Consistency: constant Relieving factors: none Exacerbating factors: eating Associated symptoms: loss of appetite, malaise and nausea/vomiting (Nausea without any vomiting) Treatments prior to arrival: none Related Data Home Medications ?Medication ?Instructions ?Recorded ?Confirmed ?Last Taken ?Type cholecalciferol (vitamin D3) 125 125 mcg PO DAILY 10/3011/03/24 08/26/24 History mcg (5,000 unit) tablet (Vitamin D3) tadalafil 5 mg tablet (Cialis) 5 mg PO DAILY 02/18/19 11/03/24 Unknown History hydrochlorothiazide 25 mg tablet 25 mg PO DAILY 11/03/24 08/26/24 History meloxicam 15 mg tablet 15 mg PO DAILY 08/27/2310/12 Unknown History Allergies Allergy/AdvReac Type Severity Reaction Status Date / Time Penicillins Allergy Unknown Unknown Verified 01/16/25 14:17 Review of Systems 2 Review of Systems: All systems reviewed & are unremarkable except as noted in HPI and below Constitutional: Constitutional: Reports as per HPI, Reports no additional constitutional complaints, Reports anorexia, Reports chills, Reports fatigue and Reports poor appetite Eyes: Eyes: Reports as per HPI and Reports no additional eye complaints C omments: Yellow discoloration of the conjunctiva ENT: Reports system reviewed and no additional complaints, except as documented and Reports as per HPI Cardiovascular: Cardiovascular: Reports as per HPI and Reports no additional cardiovascular complaints Respiratory: Respiratory: Reports as per HPI and Reports no additional respiratory complaints Gastrointestinal: Gastrointestinal: Reports as per HPI, Reports no additional gastrointestinal complaints and Reports abdominal pain (Intermittent epigastric pain) Comments: Allen-colored stools. No hematemesis or melena Genitourinary: Genitourinary: Reports no additional male genitourinary complaints and Reports as per HPI Musculoskeletal: Musculoskeletal: Reports no additional musculoskeletal complaints and Reports as per HPI Integumentary/Breasts: Skin/Breast: Reports system reviewed and no additional complaints, except as docu, Reports as per HPI and Reports pruritus Comments: Yellow discoloration of the skin Multiple petechiae Neurologic: Reports system reviewed and no additional complaints, except as documented and Reports as per HPI Psychiatric: Psychiatric: Reports no additional psychiatric complaints and Reports as per HPI Endocrine: Endocrine: Reports no additional endocrine complaints and Reports as per HPI Hematologic/Lymphatic: Hematologic/Lymphatic: Reports no additional hematologic/lymphatic complaints and Reports as per HPI Allergic/Immunologic: Allergic/Immunologic: Reports no additional allergic/immunologic complaints and Reports as per HPI [facility] Past Medical History Medical History JACOB (obstructive sleep apnea) oral device Hypertension Family History Family History Father Hypertension Patient's father is Mother Hypertension Family history of development disorder Sibling Hypertension Cerebrovascular accident Social History Social History Smoking status: Never smoker Alcohol intake: never Substance use: never Substance use type: does not use Living arrangements: with family Spiritual care concerns: No Exam 2 Narrative: Vitals are stable Const: General: cooperative and no acute distress Nutritional Appearance: a verage body habitus Orientation/consciousness: oriented to person, oriented to place and oriented to time Limitations: no limitations HENMT: Head: normal to inspection, normocephalic and atraumatic Ears: h earing grossly normal bilaterally and external ears normal Face/Nose/Sinus: N ormal external nose present and Normal nares present Face and sinus: normal facial exam and sinuses nontender Mouth: Yes Normal oral and palatal mucosa present, Yes lip normal, Yes tongue normal and Yes moist mucous membranes T hroat: posterior oropharynx normal and tonsils normal Eyes: General: appearance normal, both eyes and all related structures V isual Goldstein: normal visual goldstein by confrontation Alignment and Position: a lignment normal Eyelids: eyelids normal Conjunctivae: other (Icterus) P upils: Equal, round and reactive pupils present EOM: EOMs intact bilaterally Neck: Neck: normal visual inspection, full ROM and no lymphadenopathy Chest: Chest palpation & inspection: normal inspection of the chest and normal palpation of entire chest wall Resp: Effort & Inspection: normal respiratory effort Auscultation: clear to auscultation bilaterally Cardio: Jugular venous distension: no JVD Palpation: normal PMI Rate: r egular rate Rhythm: regular rhythm Heart sounds: S1 normal heart sound present and S2 normal heart sound present GI: Inspection: normal to inspection GI Palp: Yes abdominal tenderness (Epigastric tenderness without any rigidity/rebound.) and Yes Hepatomegaly present Auscultation: normal bowel sounds : General: Yes no CVA tenderness Back/Spine/Pelvis: Back: no CVA tenderness Skin: General skin exam: purpura and other (Yellow discoloration of the skin) Neuro: General: oriented to person, oriented to place and oriented to time Speech: normal speech Extrem: General: normal to inspection, full ROM and capillary refill normal Psych: Appearance: grossly normal and well kempt Mental Status: mental status grossly normal Course Course Emergency Course: 62-year-old male with a history of JULIEN cirrhosis status post cholecystectomy in March of 2024 presents to the ED with --fever, jaundice, epigastric pain, allen colored stools, itching and malaise Patient has JULIEN cirrhosis with portal hypertensive gastropathy/splenomegaly suggestive of portal hypertension. Patient had hypokalemia for which she received oral potassium, IV potassium and LR infusion. Patient has fever and chills in addition to obstructive jaundice suggestive of ascending cholangitis. The patient has been cultured and received a dose of Rocephin and Flagyl. Patient is PCN allergic. Patient received 2 L of IV fluids and is on LR drip. Lactate of 2.[address] confirming dilatation of the common bile duct with a filling defect in the distal common bile duct suggestive of choledocholithiasis. Patient has coagulopathy with an INR of 1.4. Patient has normal ammonia level During his ER stay the patient developed severe chills with rigors. Temperature of 38.4? Vital Signs Vital signs: Vital Signs Temperature 36.6 C 01/16/25 14:16 Pulse Rate 99 01/16/25 14:16 Respiratory Rate 18 01/16/25 14:16 Blood Pressure 134/76 01/16/25 14:16 Pulse Oximetry 99 01/16/25 14:16 Oxygen Delivery Room Air 01/16/25 14:16 Temperature 38.4 C H 01/16/25 18:07 Pulse Rate 121 H 01/16/25 18:01 Respiratory Rate 22 H 01/16/25 18:01 Blood Pressure 150/110 H 01/16/25 18:01 Pulse Oximetry 99 01/16/25 18:01 Oxygen Delivery Room Air 01/16/25 14:16 [facility] Narrative Medical decision making narrative: Obstructive jaundice secondary to choledocholithiasis Ascending cholangitis/sepsis Cirrhosis of liver with portal hypertension Coagulopathy Differential Diagnosis Differential Diagnosis: Carcinoma head of pancreas, acute hepatic necrosis Medical Records I have reviewed the following patient records and this information was taken into consideration when formulating the assessment and plan.: previous labs Lab Data [facility] Lab Attestation statement: I personally reviewed the patient's lab results. 01/16/25 15:59 01/16/25 15:59 Labs: Lab Results 01/16/25 Range/Units 15:59 WBC 9.7 (4.8-10.8) K/mm3 RBC 4.65 L (4.70-6.10) M/mm3 Hgb 13.3 L (14.0-18.0) g/dL Hct 37.9 L (40.0-54.0) % MCV 81.5 (78.0-102.0) fL MCH 28.6 (27.0-31.0) pg MCHC 35.1 (32-36) g/dL RDW 13.5 (11.6-14.4) % Plt Count 58 L (150-420) K/mm3 MPV 11.0 (8.7-11.0) fl Immature Gran % (Auto) 2.1 H (0.0-0.0) % Neut % (Auto) 80.3 H (50.0-70.0) % Lymph % (Auto) 6.2 L (18.0-42.0) % [place] % (Auto) 10.7 (2.0-11.0) % Eos % (Auto) 0.6 L (1.0-6.0) % Baso % (Auto) 0.1 (0.0-1.0) % Lymph # (Auto) 0.60 L (1.10-4.50) K/mm3 [place] # (Auto) 1.04 H (0.10-0.90) K/mm3 Eos # (Auto) 0.06 (0.02-0.50) K/mm3 Baso # (Auto) 0.01 (0.00-0.10) K/mm3 Abs Immat Gran (auto) 0.20 H (0.00-0.00) K/mm3 Absolute Neuts (auto) 7.80 H (1.70-7.20) K/mm3 Absolute Nucleated RBC 0.00 (0.00-0.00) K/mm3 Nucleated RBC % 0.0 (0-0.0) % % Immature Plt Fraction 3.7 (1.0-7.0) % PT 14.7 H (9.50-12.1) Seconds INR 1.4 APTT 28.4 (23.9-30.70) Sec Sodium 133 L (137-145) mmol/L Potassium 2.6 L* (3.4-5.0) mmol/L Chloride 96 L (98-107) mmol/L Carbon Dioxide 27 (22-30) mmol/L Anion Gap 10 (4-12) mmol/L BUN 22 H D (9-20) mg/dL Creatinine 0.91 (0.7-1.3) mg/dL Estim Creat Clear Calc 86 ml/min Estimated GFR > 60 (59 - ) Glucose 114 H (65-110) mg/dL Calculated Osmolality 280 L (285-295) mOsm/kg Lactic Acid 2.2 H (0.7-2.0) mmol/L Calcium 9.0 (8.4-10.2) mg/dL Magnesium 2.1 (1.6-2.3) mg/dL Total Bilirubin 14.7 H (0.2-1.3) mg/dL Direct Bilirubin Pending AST 89 H (17-59) U/L ALT 147 H (6-50) U/L Alkaline Phosphatase 171 H (38-126) U/L Ammonia 25 (9-30) umol/L Total Creatine Kinase 45 L (55-170) U/L Troponin I 0.021 (0.000-0.034) ng/mL Total Protein 6.5 (6.3-8.2) g/dL Albumin 3.4 L (3.5-5.1) g/dL Lipase Pending Urine Color Dark orange (Yellow) Urine Appearance Clear (Clear) Urine pH 6.5 (5.0-8.0) Ur Specific [place] <= 1.005 L (1.010-1.020) Urine Protein Negative (Negative) Urine Glucose (UA) Trace H (Negative) Urine Ketones Negative (Negative) Ur Blood (Man) Trace-intact H (Negative) Urine Nitrate Negative (Negative) Urine Bilirubin 3+ H (Negative) Urine Urobilinogen 0.2 (0.2-1.0) mg/dL Leukocyte Esterase Rfl Negative (Negative) LETI/UL Urine RBC 0-2 (0-2) /hpf Amorphous Sediment Few H (None) Imaging Data Radiologist's impression: ITS Impressions Abdomen/Pelvis CT 01/16/25 17:24 IMPRESSION: 1. Cholelithiasis with choledocholithiasis. 2. 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 3. Incidental findings detailed above Discharge Plan Discharge Clinical Impression: Choledocholithiasis, Ascending cholangitis, Hypokalemia Cirrhosis of liver Qualifiers: Hepatic cirrhosis type: due to JULIEN Qualified Code(s): K75.81 - Nonalcoholic steatohepatitis (JULIEN) Patient Disposition: Still a Patient Condition: Stable Additional Instructions: Transferred patient to [facility] is [facility]. Patient has been accepted by Dr. Knapp Patient Language: Palestinian Prescriptions: No Action meloxicam 15 mg tablet 15 mg PO DAILY Patient Comments: not taking hydrochlorothiazide 25 mg tablet 25 mg PO DAILY carvedilol 6.25 mg tablet 6.25 mg PO Q12H 30 Days Qty: 60 4RF Rx Instructions: must administer with a meal/food - STOP NEVIBOLOL !! tadalafil [Cialis] 5 mg tablet 5 mg PO DAILY cholecalciferol (vitamin D3) [Vitamin D3] 125 mcg (5,000 unit) Tablet 125 mcg PO DAILY carvedilol 6.25 mg tablet 6.25 mg PO Q12H 30 Days Qty: 60 6RF Rx Instructions: must administer with a meal/food carvedilol 6.25 mg tablet 6.25 mg PO Q12H 30 Days Qty: 60 6RF Rx Instructions: must administer with a meal/food carvedilol 6.25 mg tablet 6.25 mg PO Q12H 30 Days Qty: 60 6RF Rx Instructions: must administer with a meal/food Follow-up/Referrals: Say,Anthony Albert MD [Primary Care Provider] Time of Disposition: 18:17
--- OUTSIDE RECORDS SUMMARY | 2025-01-16 15:05 | XMS_ITS | Clinical Summary ---
Author Organization [facility] Address [address] [place] [address] Care Team Providers Care Extrusion Supervisor Name Role Phone Anthony Deal MD Primary Care Provider [phone] Allergies No known active allergies Medications cholecalciferol (VITAMIN D-3) 125 MCG (5000 UT) Tab Take 1 tablet (5,000 Units total) by mouth daily. Active Cyanocobalamin (VITAMIN B-12) [address] 1,000 mcg under the tongue daily. Active EPSOLAY 5 % Cream 01/16/20 23 Active montelukast (SINGULAIR) 10 MG tablet nightly at bedtime. 03/25/19 24 Active zinc gluconate 50 MG Tab Take 1 tablet (50 mg total) by mouth daily. Active omeprazole (PRILOSEC) 20 MG capsule Take 1 capsule (20 mg total) by mouth 2 (two) times a day. 11/10/19 24 Active cetirizine (ZYRTEC) 10 MG tablet Take 1 tablet (10 mg total) by mouth daily. Active nebivolol (BYSTOLIC) 20 MG tabletIndication s:Benign essential hypertension TAKE 1 TABLET DAILY 90 tablet 3 02/05/20 24 Active Pyridoxine HCl (B-6) 100 MG Tab Take 1 tablet by mouth daily. Active magnesium oxide (MAG-OX) 250 MG tablet Take 1 tablet (250 mg total) by mouth daily. Active meloxicam (MOBIC) 15 MG tabletIndication s:Benign essential hypertension TAKE 1 TABLET DAILY 90 tablet 3 05/22/19 25 Active tadalafil (CIALIS) 5 MG tabletIndication s:BPH with obstruction/lowe r urinary tract symptoms TAKE 1 TABLET (5 MG TOTAL) BY MOUTH DAILY. 90 tablet 3 07/20/19 25 Active hydroCHLOROthiaz felix (HYDRODIURIL) 25 MG tabletIndication s:Benign essential hypertension TAKE 1 TABLET EVERY MORNING (MUST BE SEEN FOR FURTHER REFILLS) 90 tablet 01/01/20 25 Active hydroCHLOROthiaz felix (HYDRODIURIL) 25 MG tabletIndication s:Benign essential hypertension TAKE 1 TABLET EVERY MORNING (MUST BE SEEN FOR FURTHER REFILLS) 90 tablet 3 01/09/20 24 025 Discontinued Active Problems Problem Noted Date Diagnosed Date Fatty liver 04/06/2024 Elevated PSA 09/04/2020 S/P partial thyroidectomy 04/07/2019 Vitamin D deficiency 02/16/2018 Edema 06/12/2015 Benign essential hypertension 01/12/2015 BPH with obstruction/lower urinary tract symptom s 01/12/2015 Erectile dysfunction 01/12/2015 Hypogonadism male 01/12/2015 Obstructive sleep apnea 01/12/2015 Encounters Date Type Department Care Team Description 11/03/2024 Scan [facility] Scanned, [facility] from Last 3 Months Immunizations Immunization Administration Dates Next Due Fluzone (IIV3, Trivalent, 0. 5 ML Prefilled Syringe) 12/08/2023 Fluzone 6 Months+ Quad (0.5 mL Prefilled Syringe) 11/13/2019 Influenza (Generic) 11/19/2017,11/10/2014 Influenza Adult (Generic) 12/01/2018,,11/10/2014,2012,01/14/2012 Tdap (Adacel) 07/09/2019 Zoster (Zostavax) 95038 Unt/0.65Ml 08/02/2016 Family History Medical History Relation [...] Sex Assigned at Male 02/16/2018 2:46 PM [employer]GAL [employer] Legal Sex Male 8:21 PM CDT Gender Identity Male 02/16/2018 2:46 PM [employer] Sexual Orientation Straight 02/16/2018 2: 46 PM [employer]GAL [employer] Last Filed Vital Signs Vital Sign Reading Time Taken Comments Blood Pressure 118/78 04/06/2024 2:58 PM [employer] Pulse 84 04/06/2024 2:58 PM [employer] Temperature 36.5 C (97.7 F) 04/06/2024 2:58 PM [employer] Respiratory Rate 16 04/06/2024 2:58 PM [employer]GAL [employer]IP Oxygen Saturation 97% 04/06/2024 2:58 PM [employer]GAL [employer]IP Inhaled Oxygen Concentration - - Weight 112 kg (246 lb 14.4 oz) 04/06/2024 2:58 P M [employer] Height 188 cm (6' 2) 04/06/2024 2:58 PM [employer]GAL [employer]IP Body Mass Index 31.7 04/06/2024 2:58 PM [employer]GAL [employer] Plan of Treatment Health Maintenance Due Date Last Done Comments Hepatitis A Vaccines (1 of 2 - Risk 2-dose series) 1981 Pneumococcal Vaccine: 50+ Years (1 of 1 - PCV) 2012 Zoster Vaccines (3 of 3) 10/27/2021 09/01/2021, 07/12 COVID-19 Vaccine ( season) 2024 09/01/2021, 01/31/2021, 05/15/2020, Additional history exists Influenza Adult (#1) 2024 12/08/2023, 11/22/2022, 01/13/2021, Additional history exists Annual Physical 12/07/2024 12/08/2023 Colorectal Cancer Screening FIT-DNA (3 Years) 12/20/2026 12/21/2023, 12/21/2023, 10/30/2020, Additional history exists DTaP, Tdap and Td Vaccines (2 - Td or Tdap) 07/08/2029 07/09/2019 RSV Immunization or 60+ Years Completed 02/18/2023 PHQ-2 (Physician [place]) Completed 04/06/2024 Hepatitis C Completed 06/22/2024, 12/30/2023 [...] Procedure Name Priority Date/Time Associated Diagnosis Comments HEP C SCANNED ORDERS Routine 06/22/2024 COLOGUARD (EXACT SCIENCE) Routine 12/21/2023 10:40 AM LEGAL INTERNSHIP Colon cancer screening from Last 3 Months or Most Recently Relevant to Health Maintenance Results * HEP C SCANNED ORDERS (06/22/2024) [facility] Scanned SCANNING Final Resu lt [facility] ONBASE * COLOGUARD (EXACT SCIENCE) (12/21/2023 10:40 AM LEGAL INTERNSHIP) COLOGUARD RESULT Negative Negative [employer] (CLIA #:[id number]) Comment: NEGATIVE TEST RESULT. A negative Cologuard [...] (Anuradha Martinez al, N Engl J Med 2014;370(14):3756-7177) The normal value (reference range) for this assay is negative. COLOGUARD RE-SCREENING RECOMMENDATION: Periodic colorectal cancer screening is an important part of preventive healthcare for asymptomatic individuals at average risk for colorectal cancer. Following a negative Cologuard result, the [place] [employer] Society and U.S. Multi-Society Task Force screening guidelines recommend a Cologuard re-screening interval of 3 years. References: [place] [employer] Guideline for Colorectal Cancer Screening: https://www.cancer.org/cancer/pskoq-ymaare-qlcyzu/ndpfyjwcd-vcmfcpxoc-aidxomh/ac s-rec ommendations.html.; Maurisio GOMES, Sari CASIANO, Luis Daniel JIANG, Colorectal Cancer Screening: Recommendations for Physicians and Patients from the U.S. Multi-Society Task Force on Colorectal Cancer Screening , Am J Gastroenterology 2017; 112:8572-3014. TEST DESCRIPTION: Composite algorithmic analysis of stool [...] Sutton et al, N Engl J Med 2014;370(14):6872-0049.) Cologuard may produce a false negative or false positive result (no colorectal cancer or precancerous polyp present at colonoscopy follow up). A negative Cologuard test result does not guarantee the absence of CRC or advanced adenoma (pre-cancer). The current Cologuard screening interval is every 3 years. ([place] [employer] and U.S. Multi-Society Task Force). Cologuard performance data in a 10,000 patient pivotal study using colonoscopy as the reference method can be accessed at the following location: www.[employer]/results. Additional description of the Cologuard test process, warnings and precautions can be found at www.cologuard.com. STOOL STOOL SPECIMEN / Unknown 12/21/2023 10:40 AM [employer]GAL INTER[employer]HIP 12/23/2023 9:52 AM LEGAL INTERNSHIP Anthony Deal MD BODY FLUIDS AND STOOLS ORDERAB LES Final Result [facility]) [address] [place] [place] [address], [facility] (CLIA #:[id number]) [address] [place] [place] [address] from Last 3 Months or Most Recently Relevant to Health Maintenance Insurance [facility] Advance Directives * Full Code (Latest Code Status on File) Date Activated Date Inactivated Comments 03/26/2024 11:30 AM 03/28/2024 5:00 PM Care Teams Extrusion Supervisor Relationship Specialty Start Date End Date Anthony Deal MD [address] [place] [id number] PCP - General INTERNAL MEDICINE 02/16/18
--- OUTSIDE RECORDS SUMMARY | 2025-01-16 15:05 | XMS_ITS | Patient Health Record ---
Author Organization [facility] [place] ([address]) Address [address] [place] [address] Care Team Providers Care Senior Statistician Name Role Phone Anthony Deal MD Primary Care Provider Unavail Harrison Estrada Unavailable [phone] Chelsey Marcelino Unavailable [phone] Allergies No Known Allergies Reason For Referral No Information Medications Medication SIG (Take, Route, Frequency, Duration) Notes Start Date End Date Status MONTELUKAST SODIUM 10 mg 1 tab(s) orally once a day; Duration: 90 days Not-Taking Montelukast Sodium 10 MG 1 tablet Orally Once a day; Duration: 30 days Patient needs visit for further refills Active Fluticasone Propionate 50 MCG/ACT 1 spray(s) in each nostril twice a day; Duration: 90 days 03/27/2023 Active Ipratropium [place] 0.06 % 2 spray(s) intranasally 3 times [...] and drug interaction check* 06/17/2023 Not-Taking Ipratropium [place] 0.06 % 4 sprays 2 sprays in [...] times a day; Duration: 30 days Active Olopatadine HCl 0.6 % 2 [...] Problem Allergic rhinitis caused by pollen (disorder) (65514161) Allergic rhinitis due to pollen (J30.1) Active confirmed Problem Chronic rhinitis (06092119) Chronic rhinitis (J31.0) Active confirmed Problem Chronic cough (28701009) Chronic cough (R05.3) Active confirmed Problem Cough (finding) (43367060) Cough, unspecified (R05.9) Active confirmed Vital Signs Blood pressure diastolic 74 mm Hg 06/21/2024 Oximetry 97 % 06/21/2024 Height 74 in 06/21/2024 Blood pressure systolic 112 mm Hg 06/21/2024 Weight 256.6 lbs 06/21/2024 BMI 32.94 kg/m2 06/21/2024 Encounters Encounter Location Date Provider Diagnosis [facility] [address] [facility] [facility] [address] [place] [address] 06/21/2024 Chelsey Ayalakayli Chronic cough R05.3 and Allergic rhinitis due to pollen J30.1 Assessments Encounter Date Diagnosis (ICD Code) Assessment Notes Treatment Notes Treatment Clinical Notes Section Notes 06/21/2024 Allergic rhinitis due to pollen (ICD-10 [...] visit. 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 - Spirometry [...] months for further evaluation and management 06/21/2024 Other Plan Of Treatment Pending Test Test Name Order Date X ray : Chest 12/23/2022 IMMUNOGLOBULIN E 12/23/2022 Insurance Providers Payer Name Payer Address Payer Phone Subscriber Number Group Number Insured Name Patient Relationship to Insured Coverage Start Date Coverage End Date [facility] [address] [place] [address] [id number] Main [employer] Self - patient is the insured Medical (General) History Surgical History Surgery Date(Month/Year) Thyroidectomy 03/13/2019 cataract removal gallbladder removal 03/14/24
[2025-01-16] MEDS: LACTATED RINGERS 1,000 ML 500 ML IV CONT (15:11)
[2025-01-16] MEDS: cefTRIAXone 1 GM in SODIUM CHLORIDE 0.9% IV 50 ML 100 ML IVPB (15:58)
[2025-01-16] MEDS: LACTATED RINGERS 1,000 ML 150 ML IV CONT (15:58)
[2025-01-16 16:20] LABS: Hematocrit 37.9 % (40.0-54.0); Hemoglobin 13.3 g/dL (14.0-18.0); Immature Granulocyte Percent A 2.1 % (0.0-0.0); Immature Platelet Fraction Pct 3.7 % (1.0-7.0); Lymphocytes Absolute Auto 0.60 K/mm3 (1.10-4.50); Mean Corpuscular HGB Conc 35.1 g/dL (32-36); Mean Corpuscular Hemoglobin 28.6 pg (27.0-31.0); Mean Corpuscular Volume 81.5 fL (78.0-102.0); Nucleated Red Blood Cells Absolute Auto 0.00 K/mm3 (0.00-0.00); Nucleated Red Blood Cells Perc 0.0 % (0-0.0); Platelet Count Result 58 K/mm3 (150-420); Red Blood Count 4.65 M/mm3 (4.70-6.10); White Blood Count 9.7 K/mm3 (4.8-10.8)
[2025-01-16 16:28] LABS: INR 1.4; Partial Thromboplastin Time 28.4 Sec (23.9-30.70); Prothrombin Time 14.7 Seconds (9.50-12.1)
[2025-01-16 16:29] LABS: Ammonia 25 umol/L (9-30)
[2025-01-16] MEDS: metroNIDAZOLE 500 MG/ISO 100ML 500 MG/100 ML BAG 100 MG IVPB (16:32)
[2025-01-16 16:43] LABS: Anion Gap 10 mmol/L (4-12); Blood Urea Nitrogen 22 mg/dL (9-20); Carbon Dioxide 27 mmol/L (22-30); Chloride 96 mmol/L (98-107); Sodium 133 mmol/L (137-145)
[2025-01-16 16:44] LABS: Calcium 9.0 mg/dL (8.4-10.2); Creatine Kinase 45 U/L (55-170); Estimated CRCL calculation 86 ml/min; Estimated Glomerular Filt Rate > 60; Glucose 114 mg/dL (65-110); Osmolality Calculated 280 mOsm/kg (285-295)
[2025-01-16 16:45] LABS: Potassium 2.6 mmol/L (3.4-5.0)
[2025-01-16 16:51] LABS: Magnesium 2.1 mg/dL (1.6-2.3)
--- NOTE | 2025-01-16 16:56 | PC.NURSE ---
PATIENT BEING TAKEN DOWN TO RADIOLOGY
[2025-01-16 16:57] LABS: Alanine Aminotransferase 147 U/L (6-50); Albumin Level 3.4 g/dL (3.5-5.1); Alkaline Phosphatase 171 U/L (38-126); Aspartate Amino Transferase 89 U/L (17-59); Bilirubin,Total 14.7 mg/dL (0.2-1.3); Total Protein 6.5 g/dL (6.3-8.2)
[2025-01-16 17:12] LABS: Troponin I 0.021 ng/mL (0.000-0.034)
[2025-01-16] MEDS: POTASSIUM CHLORIDE 20 MEQ PACKET (FOR LIQUID) 40 MEQ PO (17:15)
[2025-01-16 17:25] LABS: Appearance Urine Clear (Clear); Glucose Urine UA Trace (Negative); Leukocyte Esterase Ur Negative LEU/UL (Negative); Nitrate Urine Negative (Negative); Specific Grav Ur <= 1.005 (1.010-1.020)
[2025-01-16 17:34] LABS: Add Urine Microscopic? YES
[2025-01-16] MEDS: ACETAMINOPHEN 325 MG TABLET 650 MG PO (18:09)
[2025-01-16] MEDS: KCL 20 MEQ/SW 100 ML 100 ML 50 MEQ IVPB (18:10)
[2025-01-16] MEDS: SODIUM CHLORIDE 0.9% IV 1,000 ML 999 ML IV CONT (18:11)
[2025-01-16 18:50] LABS: Lipase 191 U/L (23-300)
[2025-01-16] MEDS: ONDANSETRON INJ 4 MG/2 ML VIAL IV PUSH (19:18)
[2025-01-16] MEDS: HYDROmorphone HCL INJ (*CRX) 2 MG/ML VIAL 0.5 MG IV PUSH (19:18)
--- NOTE | 2025-01-16 20:23 | PC.NURSE ---
Spoke with Mita RN with [facility] to update her on repeat LA of 4.3, up from 2.2. ERP also aware.
--- NOTE | 2025-01-17 | CONSULT_PTH ---
PATIENT: Main Lu LOC: [facility] U#:[id number] AGE/SX: 64/M ROOM: RE01/16/[address]: Giancarlo Li MD : 1960 BED: DIS: 01/16/2025 SPEC #: [id number] RECD: 01/17/25 08:16 STATUS: ENT REQ #: [id number] AUDRA: 01/17/25 00:[address]: Giancarlo Li DEPT: [facility] Consult RECD BY: Gely Garcia MLT, ([facility]) ENTERED: 01/17/25 08:17 SP TYPE: Consult OTHR DR: Anthony DealMD Tissues: A - Peripheral Smear Procedures: Hematology Consult
== END 2025-01-16 20:14 | disposition short-term general hospital (02) ==
PROVIDERS: Emergency Provider Internal Medicine Critical Care Medicine; PCP Internal Medicine
DX: K80.30 Calculus of bile duct with cholangitis, unspecified, without obstruction (principal); K75.81 Nonalcoholic steatohepatitis (NASH); E87.6 Hypokalemia; I10 Essential (primary) hypertension
CPT/HCPCS: 36415; 74177; 80048; 80076; 81001; 82140; 82550; 83605; 83690; 83735; 84484; 85025; 85055; 85610; 85730; 96361; 96365; 96366; 96367; 96375; 99285; A9270; J0696; J1171; J1836; J2405; J3480; J7030; J7120; Q9967

== ENCOUNTER 2025-01-25 16:24 | Emergency (ER) | payer BC, SELFPAY ==
[2025-01-25] VITALS (14 sets, daily range): BP systolic 111–130; BP diastolic 70–87; PULSE 81–94; RESP 14–20; TEMP 36.5; O2SAT 94–100
--- NOTE | ~2025-01-25 | XR_ITS ---
EXAMINATION: XR chest 1V portable COMPARISON: No comparisons available. HISTORY: Short of breath FINDINGS: The lungs are clear, no effusion. No pneumothorax. Heart is normal size. Mediastinal and hilar contours are within normal limits. Bony thorax no acute abnormality. Miscellaneous: None Impression: No acute cardiopulmonary abnormality. Reviewed, dictated and finalized at location P. OR TECHNICAL RECRUITER Impression: No acute cardiopulmonary abnormality.
--- NOTE | 2025-01-25 16:46 | ED.WEAKNESS ---
HPI - Weakness General Chief complaint: Weakness Stated complaint: weakness; shortness of breath Time Seen by Provider: 01/25/25 16:45 Source: patient and family Mode of arrival: ambulatory Limitations: no limitations History of Present Illness HPI Narrative: Patient is a 64-year-old male with a recent GI bleed and cirrhosis complications. Patient is here for severe weakness. He was getting anemic and having some low potassium issues while in the hospital. No blood was given. No chest pain and has shortness of breath only with moving. MD Complaint: generalized weakness Onset (ago): week(s) (1) Duration: constant and progressively worsening Location: generalized Migration: none Severity: moderate Severity scale (1-10): 7 (Of weakness sensation) Quality: aching Relieving factors: none Exacerbating factors: movement and exertion Context: recent illness and recent surgery Associated symptoms: confusion, myalgias and shortness of breath Related Data Home Medications ?Medication ?Instructions ?Recorded ?Confirmed ?Last Taken ?Type cholecalciferol (vitamin D3) 125 125 mcg PO DAILY 02/18/19 01/25/25 08/26/24 History mcg (5,000 unit) tablet (Vitamin D3) Held on 01/25/25. Instructions: .Provider Order tadalafil 5 mg tablet (Cialis) 5 mg PO DAILY 02/18/19 11/03/24 Unknown History hydrochlorothiazide 25 mg tablet 25 mg PO DAILY 08/27/23 11/03/24 08/26/24 History meloxicam 15 mg tablet 15 mg PO DAILY 08/27/23 11/03/24 Unknown History Allergies Allergy/AdvReac Type Severity Reaction Status Date / Time Penicillins Allergy Unknown Unknown Verified 01/25/25 16:52 Review of Systems Review of Systems: All systems reviewed & are unremarkable except as noted in HPI and below Constitutional: Constitutional: Reports no additional constitutional complaints Eyes: Eyes: Reports no additional eye complaints ENT: Reports system reviewed and no additional complaints, except as documented Cardiovascular: Cardiovascular: Reports no additional cardiovascular complaints Respiratory: Respiratory: Reports no additional respiratory complaints Gastrointestinal: Gastrointestinal: Reports no additional gastrointestinal complaints Genitourinary: Genitourinary: Reports no additional male genitourinary complaints Musculoskeletal: Musculoskeletal: Reports no additional musculoskeletal complaints Integumentary/Breasts: Skin/Breast: Reports system reviewed and no additional complaints, except as docu Neurologic: Reports system reviewed and no additional complaints, except as documented Psychiatric: Psychiatric: Reports no additional psychiatric complaints Endocrine: Endocrine: Reports no additional endocrine complaints Hematologic/Lymphatic: Hematologic/Lymphatic: Reports no additional hematologic/lymphatic complaints Allergic/Immunologic: Allergic/Immunologic: Reports no additional allergic/immunologic complaints PMFSH Past Medical History Medical History JACOB (obstructive sleep apnea) oral device Hypertension Family History Family History Father Hypertension Patient's father is Mother Hypertension Family history of development disorder Sibling Hypertension Cerebrovascular accident Social History Social History Smoking status: Never smoker Alcohol intake: never Substance use: never Substance use type: does not use Living arrangements: with family Spiritual care concerns: No Exam Const: General: healthy appearing Nutritional Appearance: well nourished Orientation/consciousness: patient oriented x3 Limitations: no limitations HENMT: Head: normal to inspection Ears: external ears normal Face/Nose/Sinus: Normal external nose present Eyes: Conjunctivae: conjunctivae normal Pupils: Equal, round and reactive pupils present EOM: EOMs intact bilaterally Neck: Neck: normal visual inspection Chest: Chest palpation & inspection: normal inspection of the chest Resp: Effort & Inspection: normal respiratory effort and not labored Auscultation: clear to auscultation bilaterally and no crackles Cardio: Rate: regular rate Rhythm: regular rhythm Heart sounds: no murmurs GI: Inspection: non-distended GI Palp: Yes Soft to palpation, No Tenderness to palpation present (GI), No Guarding due to palpation present (GI), No Rigid due to palpation, No Hernia present, No Palpable mass present and No Rebound tenderness present Auscultation: normal bowel sounds : General: Yes bladder normal to palpation Back/Spine/Pelvis: Back: no CVA tenderness Skin: General skin exam: No normal color and jaundice Rashes: no rashes Wounds: no wounds Neuro: General: patient oriented x3, moves all extremities, no meningeal signs, no focal motor deficits and CN's II-XI intact bilaterally Cranial nerves: Yes Nystagmus not present Speech: normal speech Gait exam (Neuro): Normal gait present Other: Fast exam negative, NIH score 0, GCS is 15 Extrem: General: normal to inspection, no clubbing, cyanosis or edema and no pedal edema Psych: Mental Status: mental status grossly normal Affect: normal affect Attitude: cooperative Course Vital Signs Vital signs: Vital Signs Temperature 36.5 C 01/25/25 16:24 Pulse Rate 94 01/25/25 16:24 Respiratory Rate 14 01/25/25 16:24 Blood Pressure 111/70 01/25/25 16:24 Pulse Oximetry 100 01/25/25 16:24 Oxygen Delivery Room Air 01/25/25 16:24 Temperature 36.5 C 01/25/25 16:24 Pulse Rate 81 01/25/25 18:46 Respiratory Rate 20 01/25/25 18:46 Blood Pressure 124/80 01/25/25 18:46 Pulse Oximetry 96 01/25/25 18:46 Oxygen Delivery Room Air 01/25/25 16:24 [facility] MDM Narrative Medical decision making narrative: Patient is a 64-year-old male with cirrhosis and recent stent placement in his liver; they also had to repair a GI bleed coming from the patent portal system. Check labs. EKG. Urinalysis. Workup was essentially negative. We discussed the possibility of still being anxious and depressed after the major medical event. He agreed that possibility exists and we will add physical therapy when he gets back to the primary doctor and further work on his mental health of getting out of bed and staying out of bed all day. His was in agreeance as well. Differential Diagnosis Differential Diagnosis: UTI, cirrhosis complication, anemia Lab Data [facility] Lab Attestation statement: I personally reviewed the patient's lab results. 01/25/25 17:13 01/25/25 17:13 Labs: Lab Results 01/25/25 01/25/25 01/25/25 Range/Units 17:13 17:19 17:42 WBC 6.3 (4.8-10.8) K/mm3 RBC 3.09 L (4.70-6.10) M/mm3 Hgb 9.1 L (14.0-18.0) g/dL Hct 27.9 L (40.0-54.0) % MCV 90.3 (78.0-102.0) fL MCH 29.4 (27.0-31.0) pg MCHC 32.6 (32-36) g/dL RDW 16.3 H (11.6-14.4) % Plt Count 226 (150-420) K/mm3 MPV 9.9 (8.7-11.0) fl Immature Gran % (Auto) 1.6 H (0.0-0.0) % Neut % (Auto) 75.3 H (50.0-70.0) % Lymph % (Auto) 14.1 L (18.0-42.0) % [place] % (Auto) 7.5 (2.0-11.0) % Eos % (Auto) 1.0 (1.0-6.0) % Baso % (Auto) 0.5 (0.0-1.0) % Lymph # (Auto) 0.89 L (1.10-4.50) K/mm3 [place] # (Auto) 0.47 (0.10-0.90) K/mm3 Eos # (Auto) 0.06 (0.02-0.50) K/mm3 Baso # (Auto) 0.03 (0.00-0.10) K/mm3 Abs Immat Gran (auto) 0.10 H (0.00-0.00) K/mm3 Absolute Neuts (auto) 4.74 (1.70-7.20) K/mm3 Absolute Nucleated RBC 0.00 (0.00-0.00) K/mm3 Nucleated RBC % 0.0 (0-0.0) % Sodium 135 L (137-145) mmol/L Potassium 3.4 (3.4-5.0) mmol/L Chloride 104 (98-107) mmol/L Carbon Dioxide 22 (22-30) mmol/L Anion Gap 9 (4-12) mmol/L BUN 10 D (9-20) mg/dL Creatinine 0.64 L (0.7-1.3) mg/dL Estim Creat Clear Calc 119 ml/min Estimated GFR > 60 (59 - ) Glucose 117 H (65-110) mg/dL Calculated Osmolality 280 L (285-295) mOsm/kg Calcium 8.4 (8.4-10.2) mg/dL Magnesium 2.0 (1.6-2.3) mg/dL Total Bilirubin 3.6 H (0.2-1.3) mg/dL AST 94 H (17-59) U/L ALT 90 H (6-50) U/L Alkaline Phosphatase 227 H (38-126) U/L Ammonia < 9 L (9-30) umol/L Troponin I < 0.012 (0.000-0.034) ng/mL Total Protein 6.6 (6.3-8.2) g/dL Albumin 3.5 (3.5-5.1) g/dL Urine Color Yellow (Yellow) Urine Appearance Clear (Clear) Urine pH 7.0 (5.0-8.0) Ur Specific [place] 1.015 (1.010-1.020) Urine Protein Negative (Negative) Urine Glucose (UA) Negative (Negative) Urine Ketones Negative (Negative) Ur Blood (Man) Negative (Negative) Urine Nitrate Negative (Negative) Urine Bilirubin Negative (Negative) Urine Urobilinogen 0.2 (0.2-1.0) mg/dL Leukocyte Esterase Rfl Negative (Negative) LETI/UL Imaging Data Attestation: I personally reviewed and interpreted this imaging study as follows: Radiologist's impression: ITS Impressions Chest X-Ray 01/25/25 17:30 Impression: No acute cardiopulmonary abnormality. ECG Data EKG #1: Attestation: I personally reviewed and interpreted this ECG as follows: ECG completion date: 01/25/25 ECG completion time: 19:25 normal rate, sinus rhythm, PACs, non-specific ST changes, normal QRS, normal QT and NL axis Discharge Plan Discharge Clinical Impression: Weakness Cirrhosis Qualifiers: Hepatic cirrhosis type: other cirrhosis Qualified Code(s): K74.69 - Other cirrhosis of liver Patient Disposition: Home Condition: Stable Instructions: Weakness (ED) Additional Instructions: Please follow-up with the primary doctor in the next week. I suggest physical therapy for further assistance with weakness post major medical event. Work on your mental health after the major event to get back to wellness. Eat good and sleeps good. Take rest. Patient Language: Sudanese Prescriptions: No Action meloxicam 15 mg tablet 15 mg PO DAILY Patient Comments: not taking hydrochlorothiazide 25 mg tablet 25 mg PO DAILY carvedilol 6.25 mg tablet 6.25 mg PO Q12H 30 Days Qty: 60 4RF Rx Instructions: must administer with a meal/food - STOP NEVIBOLOL !! tadalafil [Cialis] 5 mg tablet 5 mg PO DAILY cholecalciferol (vitamin D3) [Vitamin D3] 125 mcg (5,000 unit) Tablet 125 mcg PO DAILY Follow-up/Referrals: Say,Anthony Albert MD [Primary Care Provider] Time of Disposition: 19:29
--- NOTE | 2025-01-25 17:03 | ECG_ITS ---
Test Date: 2025-01-25 17:15:02 Measurements Intervals [place] Rate: 92 P: 6 CO: 152 QRS: 42 QRSD: 102 T: 47 QT: 381 QTc: 473 Interpretive Statements SINUS RHYTHM WITH OCCASIONAL SUPRAVENTRICULAR PREMATURE COMPLEXES MINIMAL Q WAVES- ANTEROLAT/INF LEADS BORDERLINE ECG No previous ECG available for comparison Electronically Signed On 01-25-2025 20:50:38 WATER QUALITY ASSISTANT by Vaibhav Mills D.O.
[2025-01-25 17:17] LABS: Hematocrit 27.9 % (40.0-54.0); Hemoglobin 9.1 g/dL (14.0-18.0); Immature Granulocyte Percent A 1.6 % (0.0-0.0); Lymphocytes Absolute Auto 0.89 K/mm3 (1.10-4.50); Mean Corpuscular HGB Conc 32.6 g/dL (32-36); Mean Corpuscular Hemoglobin 29.4 pg (27.0-31.0); Mean Corpuscular Volume 90.3 fL (78.0-102.0); Nucleated Red Blood Cells Absolute Auto 0.00 K/mm3 (0.00-0.00); Nucleated Red Blood Cells Perc 0.0 % (0-0.0); Platelet Count Result 226 K/mm3 (150-420); Red Blood Count 3.09 M/mm3 (4.70-6.10); White Blood Count 6.3 K/mm3 (4.8-10.8)
[2025-01-25 17:28] LABS: Ammonia < 9 umol/L (9-30)
[2025-01-25 17:36] LABS: Anion Gap 9 mmol/L (4-12); Carbon Dioxide 22 mmol/L (22-30); Chloride 104 mmol/L (98-107); Potassium 3.4 mmol/L (3.4-5.0); Sodium 135 mmol/L (137-145)
[2025-01-25 17:37] LABS: Alanine Aminotransferase 90 U/L (6-50); Albumin Level 3.5 g/dL (3.5-5.1); Alkaline Phosphatase 227 U/L (38-126); Aspartate Amino Transferase 94 U/L (17-59); Bilirubin,Total 3.6 mg/dL (0.2-1.3); Blood Urea Nitrogen 10 mg/dL (9-20); Calcium 8.4 mg/dL (8.4-10.2); Estimated CRCL calculation 119 ml/min; Estimated Glomerular Filt Rate > 60; Glucose 117 mg/dL (65-110); Osmolality Calculated 280 mOsm/kg (285-295); Total Protein 6.6 g/dL (6.3-8.2)
[2025-01-25 17:40] LABS: Troponin I < 0.012 ng/mL (0.000-0.034)
[2025-01-25 17:47] LABS: Magnesium 2.0 mg/dL (1.6-2.3)
[2025-01-25 17:50] LABS: Add Urine Microscopic? NO; Appearance Urine Clear (Clear); Glucose Urine UA Negative (Negative); Leukocyte Esterase Ur Negative LEU/UL (Negative); Nitrate Urine Negative (Negative); Specific Grav Ur 1.015 (1.010-1.020)
--- NOTE | 2025-01-25 17:50 | PC.NURSE ---
Pt requesting update from provider. MD Jaja made aware. No new orders at this time.
--- OUTSIDE RECORDS SUMMARY | 2025-01-25 18:08 | XMS_ITS | Encounter Summary ---
Author Organization [facility] Address [address] [place] [id number] Care Team Providers Care Manager Cost Name Role Phone Anthony Deal MD Primary Care Provider [phone] Reason for Visit * Reason Onset Date Comments TCM 01/21/2025 Encounter Details Date Type Department Care Team (Late st Contact Info) Description 01/21/2025 Telephone [facility] Family & Internal Medicine [place] [id number] [place] [address] Anthony Deal MD [address] [place] [address] [id number] TCM Social History Tobacco Use Types Packs/Day Years Used Date Smoking Tobacco: Never Smokeless Tobacco: Never Alcohol Use Standard Drinks/Week Comments Not Currently 0 (1 standard drink = 0.6 oz pur e alcohol) once every few months AUDIT-C Answer Date Recorded Frequency of Alcohol Consumption Monthly or less 02/16/2018 Average Number of Drinks Not on file 019 Frequency of Binge Drinking Not on file 08/2018 PHQ-2 Answer Date Recorded Patient Health Questionnaire-2 Score 0 04/06/2024 Humiliation, Afraid, Rape, and Kick questionnair e Answer Date Recorded Within the last year, have y ou been afraid of your partner or ex-partner? No 01/16/2025 Within the last year, have y ou been humiliated or emotionally abused in other ways by your partner or ex-partner? No Within the last year, have y ou been kicked, hit, slapped, or otherwise physically hurt by your partner or ex-partner? No 01/16/2025 Within the last year, have y ou been raped or forced to have any kind of sexual activity by your partner or ex-partner? No 01/16/2025 Overall Financial Resource Strain (CARDIA) Answe r Date Recorded How hard is it for you to pa y for the very basics like food, housing, medical care, and heating? Not hard at all 01/16/2025 Hunger Vital Sign Answer Date Recorded Within the past 12 months, y ou worried that your food would run out before you got the money to buy more. Never true 01/17/20 25 Within the past 12 months, t he food you bought just didn't last and you didn't have money to get more. Never true 01/16/2025 PRAPARE - Transportation Answer Date Re corded In the past 12 months, has l ack of transportation kept you from medical appointments or from getting medications? No 08/2024 In the past 12 months, has l ack of transportation kept you from meetings, work, or from getting things needed for daily living? No 01/16/2025 Housing Stability Vital Sign Answer Elmer e Recorded In the last 12 months, was t here a time when you were not able to pay the mortgage or rent on time? No 01/16/2025 In the past 12 months, how m any times have you moved where you were living? 0 01/16/2025 At any time in the past 12 m [facility], were you homeless or living in a penitentiary (including now)? No 01/16/2025 [facility] Utilities Answer Date Recorded In the past 12 months has th e [employer], gas, oil, or water [employer] threatened to shut off services in your home? No 01/16/2025 Sex and Gender Information Value Date Recorded Sex Assigned at Male 02/16/2018 2:46 PM OPERATIONS SUPPORT COORDINATOR Legal Sex Male 8:21 PM CDT Gender Identity Male 02/16/2018 2:46 PM OPERATIONS SUPPORT COORDINATOR Sexual Orientation Straight 02/16/2018 2 :46 PM OPERATIONS SUPPORT COORDINATOR documented as of this encounter Functional Status * Are you deaf or do you have serious difficulty hearing Answer Date of Assessment Author Status No 01/16/2025 9:35 PM OPERATIONS SUPPORT COORDINATOR Nate Li RN Active * Are you blind or do you have serious difficulty seeing, even when wearing glasses? Answer Date of Assessment Author Status No 01/16/2025 9:35 PM Nate De La Torre RN Active * Do you have serious difficulty walking or climbing stairs? Answer Date of Assessment Author Status No 01/16/2025 9:35 PM Nate De La Torre RN Active * Do you have difficulty dressing or bathing? Answer Date of Assessment Author Status No 01/16/2025 9:35 PM Nate De La Torre RN Active * Because of a physical, mental, or emotional condition, do you have difficulty doing errands alone such as visiting a doctor's office or shopping? Answer Date of Assessment Author Status No 01/16/2025 9:35 PM Nate De La Torre RN Active documented as of this encounter Mental Status * Because of a physical, mental, or emotional condition, do you have serious difficulty concentrating, remembering, or making decisions? Answer Entry Date Author Status No 01/16/2025 9:35 PM Nate De La Torre RN Active documented in this encounter Progress Notes * Robina Maciel RN - 01/24/2025 4:26 PM CST Patient is still eligible for TCM appointment. LL-01/24/25 ATIONS SUPPORT COORDINATOR * Robina Maciel RN - 01/21/2025 11:49 AM CST Attempted to call the patient x2 for TCM call, was unable to reach them at this time. Left a message requesting a call back. LL-01/21/25 ATIONS SUPPORT COORDINATOR * Robina Maciel RN - 01/21/2025 7:56 AM CST Patient Dc will call and make TCM follow up call. LL-01/21/25 ATIONS SUPPORT COORDINATOR documented in this encounter Plan of Treatment Upcoming Encounters Date Type Department Care Team (Late st Contact Info) Description 02/01/2025 10:40 AM OPERATIONS SUPPORT COORDINATOR Office Visit [facility] Family & Internal Medicine - [place] [address] [place] [phone] [place] [address] [place] [phone] documented as of this encounter Visit Diagnoses Not on filedocumented in this encounter Additional Health Concerns Assessment Noted Time PHQ-9 Depression Total Score: 0 09/05/19 21 2:26 PM CDT documented as of this encounter Care Teams Manager Cost Relationship Specialty Start Date End Date Anthony Deal MD [address] [place] [id number] PCP - General INTERNAL MEDICINE 02/16/18 documented as of this encounter
--- OUTSIDE RECORDS SUMMARY | 2025-01-25 18:08 | XMS_ITS | Encounter Summary ---
Author Organization [facility] Address [address] [place] [id number] Care Team Providers Care Apprentice Painter Neckties Name Role Phone Anthony Deal MD Primary Care Provider [phone] Reason for Visit * Reason Comments Lab (SCAN) Encounter Details Date Type Department Care Team (Latest Contact Info) Description 01/16/2025 Scan HEALTH INFO [facility] Scanned, Doc Med Group Lab (SCAN) Social History Tobacco Use Types Packs/Day Years [...] any time in the past 12 m [facility], were you homeless or living in a alf (including now)? No 01/16/2025 [facility] Utilities Answer Date Recorded In the past 12 months has th e electric, gas, oil, or water company threatened to shut off services in your home? No 01/16/2025 Sex and Gender Information Value Date Recorded Sex Assigned at Male 02/16/2018 2:46 PM BRAKE LINING FINISHER Legal Sex Male 8:21 PM CDT Gender Identity Male 02/16/2018 2:46 PM BRAKE LINING FINISHER Sexual Orientation Straight 02/16/2018 2: 46 PM BRAKE LINING FINISHER documented as of this encounter Functional Status * Question Answer Date of Assessment Author Status Do you have serious difficulty walking or climbing stairs? No 01/16/2025 9:35 PM Nate De La Torre, RN Act flaco * Question Answer Date of Assessment Author Status Do you have difficulty dressing or bathing? No 01/16/2025 9:35 PM Nate De La Torre, RN Active Because of a physical, mental, or emotional condition, do you have difficulty doing errands alone such as visiting a doctor's office or shopping? No 01/16/2025 9:35 PM Nate De La Torre RN Acti ve * Are you deaf or do you have serious difficulty hearing Answer Date of Assessment Author Status No 03/26/2024 1:16 PM Steven Marcus RN Active * Are you blind or do you have serious difficulty seeing, even when wearing glasses? Answer Date of Assessment Author Status No 03/26/2024 1:16 PM Steven Marcus RN Active * Do you have serious difficulty walking or climbing stairs? Answer Date of Assessment Author Status No 03/26/2024 1:16 PM Steven Marcus RN Active * Do you have difficulty dressing or bathing? Answer Date of Assessment Author Status No 03/26/2024 1:16 PM Steven Marcus RN Active * Because of a physical, mental, or emotional condition, do you have difficulty doing errands alone such as visiting a doctor's office or shopping? Answer Date of Assessment Author Status No 03/26/2024 1:16 PM Steven Marcus RN Active * Question Answer Date of Assessment Author Status Are you deaf or do you have serious difficulty hearing No 01/16/2025 9:35 PM Nate De La Torre, RN Active Are you blind or do you have serious difficulty seeing, even when wearing glasses? No 01/16/2025 9:35 PM Nate De La Torre RN Acti ve * Calculated C-SSRS Risk Score (Lifetime/Recent) Answer Date of Assessment Author Status No Risk Indicated 01/16/2025 9:35 PM Michael Jonh RN Active * [place] Suicide Severity Rating Scale (Screener/Recent Self-Report) Question Answer Date of Assessment Author Status 1. Wish to be (Past 1 Month) No 01/16/2025 9:35 PM Yumiko John RN Bowen tive 2. Non-Specific Active Suicidal Thoughts (Past 1 Month) No 01/16/2025 9:35 PM Yumiko John RN Ac tive 6. Suicidal Behavior (Lifetime) No 01/16/2025 9:35 PM Yumiko John RN Ac tive documented as of this encounter Mental Status * Question Answer Entry Date Author Status Because of a physical, mental, or emotional condition, do you have serious difficulty concentrating, remembering, or making decisions? No 01/16/2025 9:35 PM BRAKE LINING FINISHER Nate Li, RN Active * Because of a physical, mental, or emotional condition, do you have serious difficulty concentrating, remembering, or making decisions? Answer Entry Date Author Status No 03/26/2024 1:16 PM BRAKE LINING FINISHER Steven Lopez RN Active documented in this encounter Plan of Treatment Upcoming Encounters Date Type Department Care Team (Late st Contact Info) Description 02/01/2025 10:40 AM BRAKE LINING FINISHER Office Visit [facility] Family & Internal Medicine [facility] [address] [place] [address] Anthony Deal MD [address] [place] [phone] documented as of this encounter Procedures Procedure Name Priority Date/Time Associated Diagnosis Comments OUTSIDE LAB (SCAN ORDER) 01/16/2025 documented in this encounter Results * OUTSIDE LAB (SCAN ORDER) (01/16/2025) 01/16/2025 us Doc Med [facility] Scanned SCANNING Final Resu lt documented in this encounter Visit Diagnoses Not on filedocumented in this encounter Additional Health Concerns Assessment Noted Time PHQ-9 Depression Total Score: 0 09/05/19 21 2:26 PM CDT documented as of this encounter Care Teams Apprentice Painter Neckties Relationship Specialty Start Date End Date Anthony Deal MD [address] [place] [id number] PCP - General INTERNAL MEDICINE 02/16/18 documented as of this encounter
--- OUTSIDE RECORDS SUMMARY | 2025-01-25 18:08 | XMS_ITS | Encounter Summary ---
Author Organization [facility] Address [address] [place] [address] Care Team Providers Care Hydroelectric Plant Structural Engineer Name Role Phone Anthony Deal MD Primary Care Provider [phone] Reason for Visit * Reason Onset Date Comments Advice 01/25/2025 Encounter Details Date Type Department Care Team (Late st Contact Info) Description 01/25/2025 Telephone [facility] Family & Internal Medicine [id number] [place] [address] Anthony Deal MD [address] [place] [address] [phone] Advice Social History Tobacco Use Types Packs/Day Years [...] any time in the past 12 m [facility], were you homeless or living in a usp (including now)? No 01/16/2025 [facility] Utilities Answer Date Recorded In the past 12 months has th e [employer], gas, oil, or water [employer] threatened to shut off services in your home? No 01/16/2025 Sex and Gender Information Value Date Recorded Sex Assigned at Male 02/16/2018 2:46 PM HVAC MANAGER Legal Sex Male 8:21 PM CDT Gender Identity Male 02/16/2018 2:46 PM HVAC MANAGER Sexual Orientation Straight 02/16/2018 2: 46 PM HVAC MANAGER documented as of this encounter Functional Status * Are you deaf or do you have serious difficulty hearing Answer Date of Assessment Author Status No 01/16/2025 9:35 PM HVAC MANAGER Nate Li RN Active * Are you [...] documented in this encounter Progress Notes * Josee Lopez MA - 01/25/2025 4:23 PM CST This MA left voicemail for patient's , Loreta, to return call to office. MANAGER MANAGER * Anthony Deal MD - 01/25/2025 3:58 PM CST If we can get him in earlier with one of the others I am fine with that. Recommend check ing labs prior to visit: CBC, CMP, UA MANAGER * Cynthia Zamora MA - 01/25/2025 1:15 PM CST Patient's Loreta (HIPAA authorized) called in. Patient was recently hospitalized, d/c 01/23. Patient's states while in hospital, patient developed hospital delirium. states he improved before being d/c. She also states he was jaundiced upon d/c, his color has been improving. This morning patient woke up at 3:30 a.m. and was very confused. Patient was stating he was waiting for the nurse to come and take him to the bathroom. states he did become oriented again, andhas been ok since the episode. Patient's sought advice from another physician, was told to contact PCP to see if patient can be seen earlier than 02/01 and patient may need lab work. Patient's would like to know if Dr. Deal agrees he should be seen sooner with him or another provider. Let spouse know I would forward a message to PCP for recommendation. Please advise. 01/25/2025 1:24 PM MANAGER documented in this encounter Plan of Treatment Upcoming Encounters Date Type Department Care Team (Late st Contact Info) Description 02/01/2025 10:40 AM HVAC MANAGER Office Visit [facility] Family & Internal Medicine - [address] [phone] Anthony Deal MD [address] [place] [phone] documented as of this encounter Visit Diagnoses Not on filedocumented in this encounter Additional Health Concerns Assessment Noted Time PHQ-9 Depression Total Score: 0 09/05/19 21 2:26 PM CDT documented as of this encounter Care Teams Hydroelectric Plant Structural Engineer Relationship Specialty Start Date End Date Anthony Deal MD [address] [place] [id number] PCP - General INTERNAL MEDICINE 02/16/18 documented as of this encounter
--- OUTSIDE RECORDS SUMMARY | 2025-01-25 18:08 | XMS_ITS | Encounter Summary ---
Author Organization [facility] Address [address] [facility] [place] [address] Care Team Providers Care Clerical Assigner Name Role Phone Anthony Deal MD Primary Care Provider [phone] Reason for Referral * Procedure (Routine) - Open Specialty Diagnoses / Procedures Referred By Contguido t Referred To Contact Gastroenterology Diagnoses Encounter for removal of biliary stent Procedures ERCP Cary Vásquez MD [address] [place] [address] Phone: tel: fax: Referral ID Status Reason Start Date Expiration Date Visits Re quested Visits Authorized [id number] Open 01/24/2025 01/24/2026 1 1 NG BLOWER Reason for Visit * Reason Onset Date Comments Procedure 01/24/2025 Internal Referra l, Ercp 3 justine follow up, Dr. Vásquez Encounter Details Date Type Department Care Team ([facility] Contact Info) Description 01/24/2025 Telephone [facility] [address] [place] [address] Awilda Sen Procedure (Internal Referral, Ercp 3 justine follow up, Dr. Vásquez) Social History Tobacco Use Types Packs/Day Years Used Date Smoking Tobacco: Unknown Alcohol Use Standard Drinks/Week Comments Never 0 (1 standard drink = 0.6 oz pur e alcohol) Humiliation, Afraid, Rape, and Kick questionnair e Answer Date Recorded Within the last year, have y ou been afraid of your partner or ex-partner? No 01/19/2025 Within the last year, have y ou been humiliated or emotionally abused in other ways by your partner or ex-partner? No Within the last year, have y ou been kicked, hit, slapped, or otherwise physically hurt by your partner or ex-partner? No 01/19/2025 Within the last year, have y ou been raped or forced to have any kind of sexual activity by your partner or ex-partner? No 01/19/2025 AUDIT-C Answer Date Recorded Q1: How often do you have a drink containing alcohol? Never 01/19/2025 Q2: How many drinks containi ng alcohol do you have on a typical day when you are drinking? Patient does not drink Q3: How often do you have si x or more drinks on one occasion? Never 01/19/2025 [facility] - Occupational Stress Questionnaire Answer Date Recorded Do you feel stress - tense, restless, nervous, or anxious, or unable to sleep at night because your mind is troubled all the time - these days? Not at all 01/19/2025 Hunger Vital Sign Answer Date Recorded Within the past 12 months, y ou worried that your food would run out before you got the money to buy more. Never true 01/20/20 25 Within the past 12 months, t he food you bought just didn't last and you didn't have money to get more. Never true 01/19/2025 PRAPARE - Transportation Answer Date Re corded In the past 12 months, has l ack of transportation kept you from medical appointments or from getting medications? No 01/10 In the past 12 months, has l ack of transportation kept you from meetings, work, or from getting things needed for daily living? No 01/19/2025 Housing Stability Vital Sign Answer Elmer e Recorded In the last 12 months, was t here a time when you were not able to pay the mortgage or rent on time? No 01/19/2025 In the past 12 months, how m any times have you moved where you were living? 0 01/19/2025 At any time in the past 12 m [facility], were you homeless or living in a usp (including now)? No 01/19/2025 [facility] Utilities Answer Date Recorded In the past 12 months has th e electric, gas, oil, or water [employer] threatened to shut off services in your home? No 01/19/2025 Sex and Gender Information Value Date Recorded Sex Assigned at Not on file Legal Sex Male 3:58 PM CASING BLOWER Gender Identity Not on file Sexual Orientation Not on file documented as of this encounter Functional Status * Is person deaf or have serious hearing difficulty? Answer Date of Assessment Author No 01/19/2025 12:50 PM Lawanda Astorga RN * Is person blind or have serious difficulty seeing? Answer Date of Assessment Author No 01/19/2025 12:50 PM CASING BLOWER Lawanda Yang RN * Does person have serious difficulty walking/climbing stairs? Answer Date of Assessment Author No 01/19/2025 12:50 PM CASING BLOWER Lawanda Yang RN * Does person have difficulty dressing/bathing? Answer Date of Assessment Author No 01/19/2025 12:50 PM Lawanda Astorga RN * Does person have difficulty doing errands alone? Answer Date of Assessment Author No 01/19/2025 12:50 PM Lawanda Astorga RN documented as of this encounter Mental Status * Does person have difficulty concentrating/remembering/making decisions? Answer Entry Date Author No 01/19/2025 12:50 PM Lawanda Astorga RN documented in this encounter Miscellaneous Notes * Telephone Encounter - Awilda Sen - 01/24/2025 12:20 PM CST ----- Message from Cary Vásquez MD sent at 01/21/2025 11:01 AM CASING BLOWER ----- Regarding: ERCP 3 months Patient s/p inpatient ERCP yesterday to remove migrated stent placed at outside hospital into portal vein. Procedure went well and patient recovering in the ICU. Can we please schedule outpatient ERCP for stent exchange in 3 months? Patient agreed to schedule procedure on 04/20/2025 at 11:00 am at [facility]. Patient verbalized understanding of any prep instructions including NPO after midnight the day before procedure, needing to arrive 1 hour prior to procedure and the need for a oil transport driver to take them home after procedure. Patient is not taking anticoagulant (blood thinning) medication and has been instructed with the following recommended guidelines if applicable: Aspirin 81mg does not need to be held. For Aspirin doses greater that 81mg, patient advised to check with their prescribing provider for hold instructions. Patient was advised to contact their anticoagulant prescribing healthcare provider for hold clearance and for additional instructions. N/A Pt has no active infectious diseases at this time. Letter with procedure date / time and instructions sent to patient via mail as requested. NG BLOWER NG BLOWER documented in this encounter Plan of Treatment Upcoming Encounters Date Type Department Care Team (Latest Contact Info) Description 04/20/2025 11:00 AM CDT Hospital Encounter [facility] [address] [place] [address] Cary Vásquez MD [address] [place] [phone] Surgery General 04/20/2025 11:00 AM CDT - 04/20/2025 12:00 PM CDT Surgery [facility] [address] [place] [address] Cary Vásquez MD [address] [place] [address] [phone] ENDOSCOPIC RETROGRADE CHOLANGIOPANCREATOGRAPHY (ERCP) Scheduled Orders Name Type Priority Associated Diagnoses Orde r Schedule ERCP GI Routine Encounter for removal of biliary stent 1 Occurrences starting 01/24/2025 until 01/24/2026 Scheduled Procedures Name Priority Associated Diagnoses Date/Ti me ENDOSCOPIC RETROGRADE CHOLANGIOPANCREATOGRAPHY (ERCP) Encounter for replacement of biliary stent 04/20/2025 11:00 AM CDT documented as of this encounter Visit Diagnoses Diagnosis Encounter for removal of biliary stent- Primary Encounter for replacement of biliary stent documented in this encounter Care Teams Clerical Assigner Relationship Specialty Start Date End Date Anthony Deal MD [address] [place] [phone] PCP - General Internal Medicine 01/20/25 documented as of this encounter
--- OUTSIDE RECORDS SUMMARY | 2025-01-25 18:08 | XMS_ITS | Clinical Summary ---
Author Organization [facility] Address [address] [place] [address] Care Team Providers Care Painter And Paperhanger Apprentice Name Role Phone Anthony Deal MD Primary Care Provider [phone] Source Comments [facility],non-owned Affiliates and Associated Physician Practices is amultiple site organization consisting of ambulatory clinics and hospital sitesin [place], [place], [place] and [place]. This disclosure is being madepursuant to the Care Everywhere program and may not contain all information available regarding this patient. Last updated 17.[facility] Allergies Active Allergy Reactions Criticality Noted Date Comments Penicillin G Unknown 01/19/2025 Medications * Be aware that medications may not be up to date on this document. Alwaysverify current medications with the patient. acetaminophen (Tylenol) 500 MG tablet Take 1 (one) tablet by mouth every 6 hours as needed Maximum allowable Acetaminophen amount = 4 Grams (4000 mg) / 24 hours. 5 Active calcium carbonate (Tums) 500 MG chew tablet Take 1 (one) tablet by mouth every 2 hours as needed (chew and swallow) 5 Active carvedilol (Coreg) 6.25 MG tablet Take 1 (one) tablet by mouth 2 times daily with morning and evening meal 60 tablet 5 Active hydroCHLOROthi azide (Hydrodiuril) 25 MG tablet Take 1 (one) tablet by mouth once daily 30 tablet 5 Active melatonin 3 MG tablet Take 2 (two) tablets by mouth nightly as needed for insomnia 5 Active simethicone (Mylicon) 80 MG chew tablet Take 1 (one) tablet by mouth 4 times daily as needed for gas pain (chew and swallow) 5 Active vitamin D3 (Cholecalcifer ol) 125 MCG (5000 UT) tablet Take 1 (one) tablet by mouth once daily 5 Active pantoprazole EC (Protonix) 40 MG tablet Take 1 (one) tablet by mouth once daily 30 tablet 5 Active Active Problems Problem Noted Date Diagnosed Date HTN (hypertension) 01/22/2025 Assessment & Plan (01/23/2025 11:26 AM BUSINESS SERVICES ADMINISTRATOR): Home regimen: HCTZ 25, Coreg 6.25 BID -Restart as tolerated -holding for now Assessment & Plan (01/22/2025 1:22 PM BUSINESS SERVICES ADMINISTRATOR): Home regimen: HCTZ 25, Coreg 6.25 BID -Restart as tolerated -holding for now Decompensated cirrhosis 01/22/2025 Assessment & Plan (01/23/2025 11:26 AM BUSINESS SERVICES ADMINISTRATOR): -Thrombocytopenia and anemia likely 2/2 cirrhosis -CTM -No clinical signs of ascites or SBP Assessment & Plan (01/22/2025 1:22 PM BUSINESS SERVICES ADMINISTRATOR): -Thrombocytopenia and anemia likely 2/2 cirrhosis -CTM -No clinical signs of ascites or SBP Hyperbilirubinemia 01/22/2025 Assessment & Plan (01/23/2025 2:12 PM BUSINESS SERVICES ADMINISTRATOR): CT: choledocholithasis with 2-3 stones obstructing distal CBD; c/f ascending cholangitis -OSH transfer to [facility] ICU with septic shock -Gi signed off -repeat ERCP in 3 months -IR consulted -s/p VIR transhepatic protal venogram with advance GI procedure -LFTs trending down -Simethicone PRN -Encourage PO intake -Pt reported having GI appointment within 1 week; reported will keep appointment -Bridge referral placed in the event, pt is not able to see GI team Assessment & Plan (01/22/2025 1:22 PM BUSINESS SERVICES ADMINISTRATOR): CT: choledocholithasis with 2-3 stones obstructing distal CBD; c/f ascending cholangitis -OSH transfer to [facility] ICU with septic shock -Gi signed off -repeat ERCP in 3 months -IR consulted -s/p VIR transhepatic protal venogram with advance GI procedure -LFTs trending down -Simethicone PRN -Encourage PO intake Ascending cholangitis 01/22/2025 Assessment & Plan (01/23/2025 2:12 PM BUSINESS SERVICES ADMINISTRATOR): CT: choledocholithasis with 2-3 stones obstructing distal CBD; c/f ascending cholangitis -OSH transfer to [facility] ICU with septic shock -Gi signed off -repeat ERCP in 3 months -IR consulted -s/p VIR transhepatic protal venogram with advance GI procedure -LFTs trending down -Simethicone PRN -Encourage PO intake -Pt reported having GI appointment within 1 week; reported will keep appointment -Bridge referral placed in the event, pt is not able to see GI team Assessment & Plan (01/22/2025 1:22 PM BUSINESS SERVICES ADMINISTRATOR): CT: choledocholithasis with 2-3 stones obstructing distal CBD; c/f ascending cholangitis -OSH transfer to [facility] ICU with septic shock -Gi signed off -repeat ERCP in 3 months -IR consulted -s/p VIR transhepatic protal venogram with advance GI procedure -LFTs trending down -Simethicone PRN -Encourage PO intake Elevated LFTs 01/22/2025 Assessment & Plan (01/23/2025 2:12 PM BUSINESS SERVICES ADMINISTRATOR): CT: choledocholithasis with 2-3 stones obstructing distal CBD; c/f ascending cholangitis -OSH transfer to [facility] ICU with septic shock -Gi signed off -repeat ERCP in 3 months -IR consulted -s/p VIR transhepatic protal venogram with advance GI procedure -LFTs trending down -Simethicone PRN -Encourage PO intake -Pt reported having GI appointment within 1 week; reported will keep appointment -Bridge referral placed in the event, pt is not able to see GI team Assessment & Plan (01/22/2025 1:22 PM BUSINESS SERVICES ADMINISTRATOR): CT: choledocholithasis with 2-3 stones obstructing distal CBD; c/f ascending cholangitis -OSH transfer to [facility] ICU with septic shock -Gi signed off -repeat ERCP in 3 months -IR consulted -s/p VIR transhepatic protal venogram with advance GI procedure -LFTs trending down -Simethicone PRN -Encourage PO intake Thrombocytopenia 01/22/2025 Assessment & Plan (01/23/2025 11:26 AM BUSINESS SERVICES ADMINISTRATOR): -Thrombocytopenia and anemia likely 2/2 cirrhosis -CTM -No clinical signs of ascites or SBP Assessment & Plan (01/22/2025 1:22 PM BUSINESS SERVICES ADMINISTRATOR): -Thrombocytopenia and anemia likely 2/2 cirrhosis -CTM -No clinical signs of ascites or SBP Anemia 01/22/2025 Assessment & Plan (01/23/2025 11:26 AM BUSINESS SERVICES ADMINISTRATOR): -Thrombocytopenia and anemia likely 2/2 cirrhosis -CTM -No clinical signs of ascites or SBP Assessment & Plan (01/22/2025 1:22 PM BUSINESS SERVICES ADMINISTRATOR): -Thrombocytopenia and anemia likely 2/2 cirrhosis -CTM -No clinical signs of ascites or SBP Preop examination 01/19/2025 Displacement of biliary stent, initial encounter 01/18/2025 Assessment & Plan (01/23/2025 2:12 PM BUSINESS SERVICES ADMINISTRATOR): CT: choledocholithasis with 2-3 stones obstructing distal CBD; c/f ascending cholangitis -OSH transfer to [facility] ICU with septic shock -Gi signed off -repeat ERCP in 3 months -IR consulted -s/p VIR transhepatic protal venogram with advance GI procedure -LFTs trending down -Simethicone PRN -Encourage PO intake -Pt reported having GI appointment within 1 week; reported will keep appointment -Bridge referral placed in the event, pt is not able to see GI team Assessment & Plan (01/22/2025 1:22 PM BUSINESS SERVICES ADMINISTRATOR): CT: choledocholithasis with 2-3 stones obstructing distal CBD; c/f ascending cholangitis -OSH transfer to [facility] ICU with septic shock -Gi signed off -repeat ERCP in 3 months -IR consulted -s/p VIR transhepatic protal venogram with advance GI procedure -LFTs trending down -Simethicone PRN -Encourage PO intake Resolved Problems Problem Noted Date Diagnosed Date Resolved Date Septic shock 01/20/2025 01/21/2025 Assessment & Plan (01/22/2025 1:22 PM BUSINESS SERVICES ADMINISTRATOR): CT: choledocholithasis with 2-3 stones obstructing distal CBD; c/f ascending cholangitis -OSH transfer to [facility] ICU with septic shock -Gi signed off -repeat ERCP in 3 months -IR consulted -s/p VIR transhepatic protal venogram with advance GI procedure -LFTs trending down -Simethicone PRN -Encourage PO intake Encounters Date Type Department Care Team Description 01/24/2025 Telephone Transitional Care at [facility] [address] [place] [id number] Batsheva Muñiz, vacuum worker 01/24/2025 Telephone [facility] ENDOSCOPY [address] [place] [address] Awilda Sen Procedure (Internal Referral, Ercp 3 justine follow up, Dr. Vásquez) 01/20/2025 10:35 AM BUSINESS SERVICES ADMINISTRATOR Anesthesia Event [facility] IVR [address] [place] [address] Lorenzo Coats MD 01/19/2025 12:20 PM BUSINESS SERVICES ADMINISTRATOR - 01/23/2025 1:20 PM BUSINESS SERVICES ADMINISTRATOR Hospital Encounter [facility] 6S ACUTE [address] [place] [address] Emil Spears MD Patolia, Setu K, MD Go, Abigail J, DO Bhalla, Kishley, MD Albrecht, Ryan, DO Pulmonary Disease Discharge Disposition: Home or Self Care 01/19/2025 Travel from Last 3 Months Social History Tobacco Use Types Packs/Day Years Used Date Smoking Tobacco: Unknown Tobacco Cessation:Counseling Given: Not Answered Alcohol Use Standard Drinks/Week Comments Never 0 [...] more drinks on one occasion? Never 01/19/2025 [facility] Occupational Stress Questionnaire Answer Date [...] any time in the past 12 m [facility], were you homeless or living in a [facility] (including now)? No 01/19/2025 [facility] Utilities Answer Date Recorded In the past 12 months has [employer], gas, oil, or water company threatened to shut off services in your home? No 01/19/2025 Sex and Gender Information Value Date Recorded Sex Assigned at Not on file Legal Sex Male 3:58 PM BUSINESS SERVICES ADMINISTRATOR Gender Identity Not on file Sexual Orientation Not on file Last Filed Vital Signs Vital Sign Reading Time Taken Comments Blood Pressure 131/80 01/23/2025 7:56 AM BUSINESS SERVICES ADMINISTRATOR Pulse 81 01/23/2025 7:56 AM BUSINESS SERVICES ADMINISTRATOR Temperature 37 C (98.6 F) 01/23/2025 7:56 AM BUSINESS SERVICES ADMINISTRATOR Respiratory Rate 18 01/23/2025 7:56 AM BUSINESS SERVICES ADMINISTRATOR Oxygen Saturation 97% 01/23/2025 7:56 AM BUSINESS SERVICES ADMINISTRATOR Inhaled Oxygen Concentration - - Weight 107.5 kg (236 lb 14.4 oz) 01/23/2025 4:00 AM BUSINESS SERVICES ADMINISTRATOR Height 188 cm (6' 2) 01/19/2025 12:00 PM BUSINESS SERVICES ADMINISTRATOR Body Mass Index 30.42 01/19/2025 12:00 PM BUSINESS SERVICES ADMINISTRATOR Plan of Treatment Upcoming Encounters Date Type Department Care Team (Latest Contact Info) Description 04/20/2025 11:00 AM T Hospital Encounter [facility] ENDOSCOPY [address] [place] [address] Cary Vásquez MD [address] [place] [phone] Surgery General 04/20/2025 11:00 AM CDT - 04/20/2025 12:00 PM CDT Surgery [facility] ENDOSCOPY [address] [place] [address] Cary Vásquez MD [facility] [place] [phone] ENDOSCOPIC RETROGRADE CHOLANGIOPANCREATOGRAPHY (ERCP) Scheduled Procedures Name Priority Associated Diagnoses Date/Ti ms ENDOSCOPIC RETROGRADE CHOLANGIOPANCREATOGRAPHY (ERCP) Encounter for replacement of biliary stent 04/20/2025 11:00 AM CDT Health Maintenance Due Date Last Done Comments COLON MONITORING 1962 COLONOSCOPY - COLON CA SCREENING 1962 CT COLONOGRAPHY - COLON CA SCREENING 1962 FIT - COLON CA SCREENING 1962 FLEX SIG - COLON CA SCREENING 1962 LIPID TESTING 1962 HIV SCREENING 1977 HEPATITIS C SCREENING 10/27/1980 DTAP/TDAP/TD VACCINES (1 - Tdap) 1981 PNEUMOCOCCAL VACCINE 50+ (1 of 2 - PCV) 1981 Respiratory Syncytial Virus (RSV) Vaccine Pt: or over 60 yrs (1 - Risk 50-74 years 1-dose series) 2012 ZOSTER VACCINE (1 of 2) 2012 HEPATITIS B VACCINE (1 of 3 - Risk 3-dose series) 2022 DEPRESSION SCREENING 02/11/2024 COVID-19 VACCINE (1 - season) 2024 INFLUENZA VACCINE (#1) 2024 4, 11/13/2019, 12/01/2018, Additional history exists COLOGUARD (AGES 45-75) - COLON CA SCREENING 12/20/2026 12/21/2023 Colorectal Cancer Screening 12/20/2026 SCREENING FOR DIABETES 01/24/2028 , 01/22/2025, 01/21/2025, Additional history exists HIB VACCINE Aged Out No longer eligi ble based on patient's age to complete this topic HPV VACCINE Aged Out No longer eligi ble based on patient's age to complete this topic MENINGOCOCCAL (Group B) VACCINE SHARED DECISION-MAKING Aged Out No longer eligible based on patient's age to complete this topic MENINGOCOCCAL GROUPS A/C/Y/W VACCINE Aged Out No longer eligible based on patient's age to complete this topic Medical Devices Implanted Type Area Materials Buyer Device Identifier Shelf Expiration Date Model / Serial / Lot Coil Nst 14cm 4mm 11.1 Loop Embl Pltn Implanted:Qty: 1 on 01/20/2025 at [facility] Right: Liver [employer] [id number] 04/13/2029 [id number] / / [id number] Description:Implanted by Dr. Mcdaniel Coil Nst 14cm 3mm 14.9 Loop Embl Imani Implanted:Qty: 1 on 01/20/2025 at [facility] Right: Liver [employer] [id number] 11/13/2028 [id number] / / [id number] Description:Implanted by Dr. Violeta Kaplanflex Biliary 10mm X 100mm Implanted:Qty: 1 on 01/20/2025 at [facility] N/A: Bile Duct Spare Change Payments [employer] 08/24/2026 [id number] / [id number] / [id number] Procedures Procedure Name Priority Date/Time Associated Diagnosis Comments CBC W/O DIFFERENTIAL Routine 01/23/2025 6:38 AM BUSINESS SERVICES ADMINISTRATOR PT-INR Routine 01/23/2025 6:37 AM BUSINESS SERVICES ADMINISTRATOR PHOSPHORUS BLOOD Routine 01/23/2025 6:36 AM BUSINESS SERVICES ADMINISTRATOR MAGNESIUM BLOOD Routine 01/23/2025 6:36 AM BUSINESS SERVICES ADMINISTRATOR COMPREHENSIVE METABOLIC PANEL AM Draw 01/23/2025 6:36 AM BUSINESS SERVICES ADMINISTRATOR CBC W/O DIFFERENTIAL Routine 01/22/2025 5:30 AM BUSINESS SERVICES ADMINISTRATOR PT-INR Routine 01/22/2025 5:30 AM BUSINESS SERVICES ADMINISTRATOR PHOSPHORUS BLOOD Routine 01/22/2025 5:30 AM BUSINESS SERVICES ADMINISTRATOR MAGNESIUM BLOOD Routine 01/22/2025 5:30 AM BUSINESS SERVICES ADMINISTRATOR COMPREHENSIVE METABOLIC PANEL AM Draw 01/22/2025 5:30 AM BUSINESS SERVICES ADMINISTRATOR XR ABDOMEN KUB PORTABLE STAT 01/21/2025 9:21 PM BUSINESS SERVICES ADMINISTRATOR Displacement of biliary stent, initial encounter PT-INR Routine 01/21/2025 5:33 AM BUSINESS SERVICES ADMINISTRATOR PHOSPHORUS BLOOD Routine 01/21/2025 5:33 AM BUSINESS SERVICES ADMINISTRATOR MAGNESIUM BLOOD Routine 01/21/2025 5:33 AM BUSINESS SERVICES ADMINISTRATOR CBC W/O DIFFERENTIAL Routine 01/21/2025 5:33 AM BUSINESS SERVICES ADMINISTRATOR COMPREHENSIVE METABOLIC PANEL AM Draw 01/21/2025 5:33 AM BUSINESS SERVICES ADMINISTRATOR CBC W/O DIFFERENTIAL Routine 01/20/2025 10:03 PM BUSINESS SERVICES ADMINISTRATOR CBC W/O DIFFERENTIAL Routine 01/20/2025 1:56 PM BUSINESS SERVICES ADMINISTRATOR IR VENOGRAM HEPATIC W HEMODYNAMICS Routine 01/20/2025 1:13 PM BUSINESS SERVICES ADMINISTRATOR Displacement of biliary stent, initial encounter ERCP Routine 01/20/2025 12:03 PM BUSINESS SERVICES ADMINISTRATOR ENDOTRACHEAL TUBE NOTE Routine 11:33 AM BUSINESS SERVICES ADMINISTRATOR OT EVAL AND TREAT Routine 01/20/2025 7:4 9 AM BUSINESS SERVICES ADMINISTRATOR GLUCOSE - POINT OF CARE Routine 01/20/2025 6:38 AM BUSINESS SERVICES ADMINISTRATOR BLOOD TYPE VERIFICATION Routine 01/20/2025 5:19 AM BUSINESS SERVICES ADMINISTRATOR TYPE + SCREEN PANEL Routine 01/20/2025 3 :33 AM BUSINESS SERVICES ADMINISTRATOR Preop examination PT-INR Routine 01/20/2025 3:33 AM BUSINESS SERVICES ADMINISTRATOR HEMOGLOBIN A1C Routine 01/20/2025 3:33 AM BUSINESS SERVICES ADMINISTRATOR PHOSPHORUS BLOOD Routine 01/20/2025 3:33 AM BUSINESS SERVICES ADMINISTRATOR MAGNESIUM BLOOD Routine 01/20/2025 3:33 AM BUSINESS SERVICES ADMINISTRATOR CBC W/O DIFFERENTIAL Routine 01/20/2025 3:33 AM BUSINESS SERVICES ADMINISTRATOR COMPREHENSIVE METABOLIC PANEL AM Draw 01/20/2025 3:33 AM BUSINESS SERVICES ADMINISTRATOR XR CHEST 1VW PORTABLE Routine 01/20/2025 12:21 AM BUSINESS SERVICES ADMINISTRATOR Displacement of biliary stent, initial encounter CBC W/O DIFFERENTIAL Routine 01/19/2025 9:09 PM BUSINESS SERVICES ADMINISTRATOR GLUCOSE - POINT OF CARE Routine 01/19/2025 9:07 PM BUSINESS SERVICES ADMINISTRATOR GLUCOSE - POINT OF CARE Routine 01/19/2025 4:56 PM BUSINESS SERVICES ADMINISTRATOR PHOSPHORUS BLOOD STAT 01/19/2025 2:41 PM BUSINESS SERVICES ADMINISTRATOR MAGNESIUM BLOOD STAT 01/19/2025 2:41 PM BUSINESS SERVICES ADMINISTRATOR COMPREHENSIVE METABOLIC PANEL STAT 01/19/2025 2:41 PM BUSINESS SERVICES ADMINISTRATOR CBC W/O DIFFERENTIAL STAT 01/19/2025 2:41 PM BUSINESS SERVICES ADMINISTRATOR CULTURE BLOOD Timed 01/19/2025 2:41 PM BUSINESS SERVICES ADMINISTRATOR CULTURE BLOOD Timed 01/19/2025 2:15 PM BUSINESS SERVICES ADMINISTRATOR LACTIC ACID BLOOD STAT 01/19/2025 1:4 0 PM BUSINESS SERVICES ADMINISTRATOR CALCIUM IONIZED WHOLE BLOOD STAT 01/19/2025 1:40 PM BUSINESS SERVICES ADMINISTRATOR PTT STAT 01/19/2025 12:54 PM BUSINESS SERVICES ADMINISTRATOR PT-INR STAT 01/19/2025 12:54 PM BUSINESS SERVICES ADMINISTRATOR COMPREHENSIVE METABOLIC PANEL STAT 01/19/2025 12:54 PM BUSINESS SERVICES ADMINISTRATOR CBC W/O DIFFERENTIAL STAT 01/19/2025 12:54 PM BUSINESS SERVICES ADMINISTRATOR GLUCOSE - POINT OF CARE Routine 01/19/2025 12:53 PM BUSINESS SERVICES ADMINISTRATOR PREPARE RBC LEUKOREDUCED UNIT Routine 01/19/2025 3:33 AM BUSINESS SERVICES ADMINISTRATOR PREPARE RBC LEUKOREDUCED UNIT Routine 01/19/2025 3:33 AM BUSINESS SERVICES ADMINISTRATOR Preop examination from Last 3 Months Results * (ABNORMAL) CBC W/O DIFFERENTIAL (01/23/2025 6:38 AM BUSINESS SERVICES ADMINISTRATOR) Only the most recent of9 resultswithin the time period is included. WBC 8.1 4.0 - 10.7 x10E9/L 01/23/2025 7:29 AM [facility] RBC Count 2.91(L) 4.30 - 5.80 x10E12/L 01/23/2025 7:29 AM [facility] Hemoglobin 8.6(L) 13.3 - 17.5 g/dL 01/23/2025 7:29 AM [facility] Hematocrit 24.6(L) 38.7 - 51.1 % 01/23/2025 7:29 AM [facility] MCV 84.5 80.0 - 98.0 fL 01/23/2025 7:29 AM [facility] MCH 29.6 26.7 - 33.6 pg 01/23/2025 7:29 AM [facility] MCHC 35.0 31.7 - 36.3 g/dL 01/23/2025 7:29 AM [facility] RDW-CV 14.6 11.3 - 14.8 % 01/23/2025 7:29 AM [facility] Platelet Count 163 150 - 420 x10E9/L 01/23/2025 7:29 AM [facility] MPV 10.8 7.8 - 11.4 fL 01/23/2025 7:29 AM [facility] Blood BLOOD SPECIMEN / Unknown Lab Venipuncture / Unknown 01/23/2025 6:38 AM BUSINESS SERVICES ADMINISTRATOR 01/23/2025 7:03 AM [facility] us Yang Rios MD LAB - HEMATOLOGY ORDERABLES Fi nal Result [facility] [address] [place] [address], [facility] [phone] * (ABNORMAL) PT-INR (01/23/2025 6:37 AM BUSINESS SERVICES ADMINISTRATOR) Only the most recent of5 resultswithin the time period is included. Pathologist [facility] PT 15.4(H) 12.1 - 14.8 Seconds 01/23/2025 7:31 AM [facility] INR 1.2 See Comment 01/23/2025 7:31 AM [facility] Comment:The suggested therap eutic range for standard coumadin (warfarin) therapy is an INR of 2.0-3.0. For high-risk patients (Mechanical Mitral Valve Prosthesis, etc.), the suggested prophylactic therapeutic range is an INR of 2.5-3.5. Blood BLOOD SPECIMEN / Unknown Lab Venipuncture / Unknown 01/23/2025 6:37 AM BUSINESS SERVICES ADMINISTRATOR 01/23/2025 7:03 AM [facility] us Yang Rios MD LAB - COAGULATION ORDERABLES F inal Result Performing Organization Address [facility]/State/ZIP Co de Phone Number [address] [address] [phone] * (ABNORMAL) COMPREHENSIVE METABOLIC PANEL (01/23/2025 6:36 AM BUSINESS SERVICES ADMINISTRATOR) Only the most recent of6 resultswithin the time period is included. [facility] BUN 8 7 - 26 mg/dL 01/23/2025 7:37 AM [facility] Creatinine 0.54(L) 0.71 - 1.16 mg/dL 01/23/2025 7:37 AM [facility] Sodium 134(L) 136 - 145 mmol/L 01/23/2025 7:37 AM [facility] Potassium 3.4(L) 3.5 - 4.5 mmol/L 01/23/2025 7:37 AM [facility] Chloride 106 98 - 107 mmol/L 01/23/2025 7:37 AM [facility] CO2 19(L) 22 - 29 mmol/L 01/23/2025 7:37 AM [facility] Glucose 90 70 - 99 mg/dL 01/23/2025 7:37 AM [facility] Calcium 7.8(L) 8.4 - 10.2 mg/dL 01/23/2025 7:37 AM [facility] Protein Total 5.4(L) 6.0 - 8.3 g/dL 01/23/2025 7:37 AM [facility] Albumin 2.3(L) 3.4 - 5.0 g/dL 01/23/2025 7:37 AM [facility] Bilirubin Total 4.7(H) 0.2 - 1.2 mg/dL 01/23/2025 7:37 AM [facility] Alkaline Phosphatase 249(H) 40 - 150 U/L 01/23/2025 7:37 AM [facility] ALT 65(H) 5 - 55 U/L 01/23/2025 7:37 AM [facility] AST 55(H) 5 - 34 U/L 01/23/2025 7:37 AM [facility] Anion Gap 9 6 - 16 01/23/2025 7:37 AM [facility] BUN/Creatinine Ratio 15 7 - 23 01/23/2025 7:37 AM [facility] Osmolality Calculated 276 275 - 295 mOsm/kg 01/23/2025 7:37 AM [facility] Albumin/Globulin Ratio 0.7(L) 1.1 - 2.3 01/23/2025 7:37 AM [facility] eGFR by CKD-EPI >90 >=90 mL/min/1.7 3 m2 01/23/2025 7:37 AM [facility] Comment:Estimated Glomerular Filtration Rate (eGFR) calculated using the CKD-EPI Creatinine Equation (2020), per the National Kidney Foundation and [place] [employer]ph[employer] recommendations. Blood BLOOD SPECIMEN / Unknown Lab Venipuncture / Unknown 01/23/2025 6:36 AM BUSINESS SERVICES ADMINISTRATOR 01/23/2025 7:04 AM BUSINESS SERVICES ADMINISTRATOR us Yang Rios MD LAB - CHEMISTRY ORDERABLES Randell prakash Result [facility] [address] [place] [address], [facility] [phone] * (ABNORMAL) PHOSPHORUS BLOOD (01/23/2025 6:36 AM BUSINESS SERVICES ADMINISTRATOR) Only the most recent of5 resultswithin the time period is included. Phosphorus 2.5(L) 2.8 - 5.1 mg/dL 01/23/2025 7:38 AM BUSINESS SERVICES ADMINISTRATOR [facility] Blood BLOOD SPECIMEN / Unknown Lab Venipuncture / Unknown 01/23/2025 6:36 AM BUSINESS SERVICES ADMINISTRATOR 01/23/2025 7:04 AM BUSINESS SERVICES ADMINISTRATOR Yang Rios MD LAB - CHEMISTRY ORDERABLES Fin al Result [address] [address], [place] [phone] * MAGNESIUM BLOOD (01/23/2025 6:36 AM BUSINESS SERVICES ADMINISTRATOR) Only the most recent of5 resultswithin the time period is included. Magnesium 1.7 1.6 - 2.6 mg/dL 01/23/2025 7:38 AM BUSINESS SERVICES ADMINISTRATOR [facility] Blood BLOOD SPECIMEN / Unknown Lab Venipuncture / Unknown 01/23/2025 6:36 AM BUSINESS SERVICES ADMINISTRATOR 01/23/2025 7:04 AM BUSINESS SERVICES ADMINISTRATOR Yang Rios MD LAB - CHEMISTRY ORDERABLES Fin al Result Performing Organization Address City/[facility] Co de Phone Number [address] [address], [place] [phone] * XR Abdomen Kub Portable (01/21/2025 9:21 PM BUSINESS SERVICES ADMINISTRATOR) Anatomical Region Laterality Modality Abdomen Digital Radiogra phy 01/22/2025 11:5 5 PM BUSINESS SERVICES ADMINISTRATOR Impressions 01/22/2025 11:55 PM BUSINESS SERVICES ADMINISTRATOR Impression: There is a biliary stent in place. The bowel gas pattern is normal. The visualized lung bases are clear. No displaced fracture. > Interpreting Provider: Manuel Gomez MD on 01/22/2025 11:55 PM Narrative 01/22/2025 11:55 PM BUSINESS SERVICES ADMINISTRATOR PROCEDURE: XR ABDOMEN KUB PORTABLE, DATE/TIME OF EXAM: 01/21/2025 9:21 PM, LOCATION [facility] INDICATION: [id number]: Displacement of biliary stent, initial encounter ADDITIONAL CLINICAL INFORMATION: Ordering Provider Reason For Exam: frequent BMs Technologist Note: Additional: COMPARISON: None. Procedure Note Manuel Gomez MD - 01/22/2025 PROCEDURE: XR ABDOMEN KUB PORTABLE, DATE/TIME OF EXAM: 01/21/2025 9:21 PM, LOCATION [facility] INDICATION: T85.520A: Displacement of biliary stent, initial encounter ADDITIONAL CLINICAL INFORMATION: Ordering Provider Reason For Exam: frequent BMs Technologist Note: Additional: COMPARISON: None. Impression: There is a biliary stent in place. The bowel gas pattern is normal. The visualized lung bases are clear. No displaced fracture. > Interpreting Provider: Manuel Gomez MD on 01/22/2025 11:55 PM us Mary J Go DO DIAGNOSTIC IMAGING ORDERABLES Fi nal Result * IR Venogram Hepatic (01/20/2025 1:13 PM BUSINESS SERVICES ADMINISTRATOR) Anatomical Region Laterality Modality Abdomen X-Ray Angiograph y 01/20/2025 2:00 PM BUSINESS SERVICES ADMINISTRATOR Impressions 01/20/2025 2:51 PM BUSINESS SERVICES ADMINISTRATOR Impression: Portal venogram during migrated biliary stent retrieval by GI via ERCP as detailed above. No evidence of active extravasation before, during, or after stent retrieval. Dr. Violeta Bird, was present and performed/supervised the entire procedure. Report dictated by Jameel Arriola M.D. (Interventional vice president sales) 01/20/2025 2:03 PM > Dictated by Patient Portal Concierge IDevan Dr have personally reviewed and interpreted this examination/study. > Interpreting Provider: Devan Mcdaniel Dr on 01/20/2025 2:51 PM Narrative 01/20/2025 2:51 PM BUSINESS SERVICES ADMINISTRATOR History: 64-year-old male with past medical history of choledocholithiasis status post biliary stent placement at outside hospital, compensated by stent migration into the main portal vein with melena. Patient presents for rendezvous stent removal with IR and GI with portal venogram and associated interventions. Operators: 1.Dr. Mcdaniel, Attending Physician 2.Dr. Arriola, Resident Physician Anesthesia: 1.Local anesthesia - 10 mL of 1% lidocaine 2.General anesthesia - per anesthesiology Procedure: 1.Ultrasound-guided percutaneous access a peripheral portal vein in the right hepatic lobe. 2.Selective catheterization of the main portal vein and venogram. 3.Sequential portal venograms before, during, and after biliary stent retrieval by GI via ERCP. 4.Embolization of the percutaneous portal vein access with pushable coils and lava. Fluoroscopic time: 21.1 minutes Contrast: 150 mL of Isovue-300 Procedure in detail: The procedure, risks, and possible complications were explained to the patient, and informed consent was obtained. The patient was brought to the angiography suite and placed supine on the procedure table. A pre-procedure timeout was performed. The patient was given general anesthesia and monitored throughout the procedure by the anesthesiology team. The abdomen was draped in the usual sterile manner. Limited ultrasound of the liver demonstrated biliary dilatation with several accessible portal veins in the right hepatic lobe. A peripheral portal vein in the right hepatic lobe was then percutaneously accessed using a 21-gauge Chiba needle under ultrasound guidance. The needle entry was documented. A 0.018 inch guidewire was advanced into the portal vein. An Accu-stick assembly was advanced over the 0.018 inch wire. The inner stiffener and guidewire were removed. A 0.035 inch guidewire was advanced into the splenic vein. The Accu-stick was then exchanged for an 8 Palestinian sheath. Through the sheath in the portal vein a venogram was obtained, which showed patency of the portal venous system and without evidence of extravasation. At this time ERCP was performed by the GI service to obtain access to the biliary stent. No evidence of active bleeding was seen at the start of endoscopy. Please see separately dictated operative note from GI for their portion of the procedure. A repeat portal venogram was performed and showed no evidence of bleeding from the portal vein near the site of the migrated stent. After several minutes of waiting, the patient remained hemodynamically stable and a final portal venogram continued to show no evidence of bleeding. The wire was removed and a 5 Palestinian Kumpe catheter was advanced through the sheath. The sheath and catheter were retracted to the site of portal vein access and embolization was performed with a 4mm x 14cm pushable coil. A microcatheter was advanced through the catheter and additional embolization was performed with a 3mm x 14cm pushable coil followed by 0.4 cc of lava under direct ultrasound visualization while removing the sheath to confirm embolization at the portal vein entry site and at the liver capsule. Limited ultrasound evaluation showed adequate embolization and no evidence of perihepatic bleeding. Sterile dressings were applied. The patient was extubated and transferred to post anesthesia care recovery in stable condition. There were no immediate complications associated with the procedure. Procedure Note Devan Mcdaniel MD - 01/20/2025 History: 64-year-old male with past medical history ofcholedocholithiasis status post biliary stent placement at outside hospital, compensated by stent migration into the main portal vein with melena. Patient presentsfor rendezvous stent removal with IR and GI with portal venogram andassociated interventions. Operators: 1.Dr. Mcdaniel, Attending Physician 2.Dr. Arriola, Resident Physician Anesthesia: 1.Local anesthesia - 10 mL of 1% lidocaine 2.General anesthesia - per anesthesiology Procedure: 1.Ultrasound-guided percutaneous access a peripheral portal vein in the right hepatic lobe. 2.Selective catheterization of the main portal vein and venogram. 3.Sequential portal venograms before, during, and after biliary stent retrieval by GI via ERCP. 4.Embolization of the percutaneous portal vein access with pushablecoils and lava. Fluoroscopic time: 21.1 minutes Contrast: 150 mL of Isovue-300 Procedure in detail: The procedure, risks, and possible complications were explained to the patient, and informed consent was obtained. The patient was brought tothe angiography suite and placed supine on the procedure table. Apre-procedure timeout was performed. The patient was given general anesthesia and monitored throughout the procedure by the anesthesiology team. The abdomen was draped in the usual sterile manner. Limited ultrasoundof the liver demonstrated biliary dilatation with several accessible portal veins in the right hepatic lobe. A peripheral portal vein in the right hepatic lobe was then percutaneously accessed using a 21-gauge Chibaneedle under ultrasound guidance. The needle entry was documented. A 0.018 inch guidewire was advanced into the portal vein. An Accu-stick assembly was advanced over the 0.018 inch wire. The inner stiffener and guidewirewere removed. A 0.035 inch guidewire was advanced into the splenic vein. The Accu-stick was then exchanged for an 8 Palestinian sheath. Through the sheathin the portal vein a venogram was obtained, which showed patency of theportal venous system and without evidence of extravasation. At this time ERCP was performed by the GI service to obtain access tothe biliary stent. No evidence of active bleeding was seen at the start of endoscopy. Please see separately dictated operative note from GI fortheir portion of the procedure. A repeat portal venogram was performed and showed no evidence ofbleeding from the portal vein near the site of the migrated stent. After several minutes of waiting, the patient remained hemodynamically stable and afinal portal venogram continued to show no evidence of bleeding. The wire was removed and a 5 Palestinian Kumpe catheter was advanced throughthe sheath. The sheath and catheter were retracted to the site of portalvein access and embolization was performed with a 4mm x 14cm pushable coil. A microcatheter was advanced through the catheter and additionalembolization was performed with a 3mm x 14cm pushable coil followed by 0.4 cc of lava under direct ultrasound visualization while removing the sheath toconfirm embolization at the portal vein entry site and at the liver capsule. Limited ultrasound evaluation showed adequate embolization and noevidence of perihepatic bleeding. Sterile dressings were applied. The patient was extubated and transferred to post anesthesia carerecovery in stable condition. There were no immediate complications associatedwith the procedure. Impression: Portal venogram during migrated biliary stent retrieval byGI via ERCP as detailed above. No evidence of active extravasation before, during, or after stent retrieval. Dr. Violeta Bird, was present and performed/supervised the entire procedure. Report dictated by Jameel Arriola M.D. (Interventional vice president sales) 01/20/2025 2:03 PM > Dictated by Patient Portal Concierge Devan Bird Dr have personally reviewed and interpreted this examination/study. > Interpreting Provider: Devan Mcdaniel Dr on 01/20/2025 2:51 PM us Edgardo Devlin MD IR ORDERABLES Final Result * ERCP (01/20/2025 12:03 PM BUSINESS SERVICES ADMINISTRATOR) Report Endoscopy POC Endoscopy Department Report _ Patient Name: Earline Lu Procedure Date: 01/20/2025 12:03 PM Date of : 1960 Classification: Inpatient Gender: Male Ethnicity: Not or Race: White _ Providers: Cary Vásquez MD Referring MD: Inpatient Procedure: ERCP Indications: Stent change, Follow-up of complication of previous biliary non-surgical intervention Medications: General Anesthesia Patient Profile: 64 year old male with history of subtotal cholecystectomy and OSH ERCP 01/17/2025 for choledocholithiasis complicated by biliary plastic stent placement into the portal vein presenting for combined procedure IR/GI for ERCP and removal of perforated plastic stent. Description of Procedure: Pre-Anesthesia Assessment: - Prior to the procedure, a History and Physical was performed, and patient medications and allergies were reviewed. The patient's tolerance of previous anesthesia was also reviewed. The risks and benefits of the procedure and the sedation options and risks were discussed with the patient. All questions were answered, and informed consent was obtained. Prior Anticoagulants: The patient has taken no anticoagulant or antiplatelet agents. ASA Grade Assessment: IV - A patient with severe systemic disease that is a constant threat to life. After reviewing the risks and benefits, the patient was deemed in satisfactory condition to undergo the procedure. After obtaining informed consent, the scope was passed under direct vision. Throughout the procedure, the patient's blood pressure, pulse, and oxygen saturations were monitored continuously. The ERCP was accomplished without difficulty. The patient tolerated the procedure well. Findings: This was a combined procedure performed with the presence of the interventional radiology team in the IR suite. The procedure was performed in the supine position. A biliary stent was visible on the horticultural farmworker film. IR venogram confirmed partially migrated biliary stent into the portal vein. The esophagus was successfully intubated under direct vision without detailed examination of the pharynx, larynx, and associated structures, and upper GI tract. The upper GI tract was grossly normal. One plastic stent originating in the common bile duct was emerging from the major papilla. The major papilla was adjacent to a diverticulum. A 0.025 inch x 270 cm straight Visiglide wire was passed into the biliary tree adjacent to the biliary stent. The short-nosed traction sphincterotome was passed over the guidewire and the bile duct was then deeply cannulated. Contrast was injected. I personally interpreted the bile duct images. Ductal flow of contrast was adequate. Image quality was adequate. Contrast extended to the hepatic ducts. The entire biliary tree was moderately dilated and diffusely dilated. One stent which had been placed previously through the major papilla into the common bile had migrated into the portal vein (the proximal 1-2 cm). Once the wire was secured in the biliary tree, the migrated stent was removed from the common bile duct using a rat-toothed forceps and snare. Bleeding was noted to emerge from bile duct after stent removal. IR venogram confirmed minor extravasation at site of the presumed injury to the portal vein. To discover objects, the biliary tree was swept with a 12 mm balloon starting at the bifurcation. Blood and debris were swept from the duct. One 10 Fr by 10 cm covered metal biliary stent was placed 8.5 cm into the common bile duct sealing the site of portal vein injury. Bile flowed through the stent. The stent was in good position. IR venogram confirmed resolution of the previously seen extravasation from the injury site. The endoscope was withdrawn from the patient. Estimated Blood Loss: Estimated blood loss: none. Complications: No immediate complications. Impression: - One previously placed plastic biliary stent was found to have perforated the common bile duct and partially migrated into portal vein s/p endoscopic removal. - The entire biliary tree was moderately dilated. - The biliary tree was swept and blood/debris were found. - One 10Fr x 10 cm covered metal biliary stent was placed into the common bile duct sealing the site of the portal vein injury. Recommendation: - Return patient to ICU for ongoing care. - NPO today. - Observe patient's clinical course following today's ERCP with therapeutic intervention. - Monitor for fevers, bleeding, pain, jaundice. - Trend labs (LFTs and CBC). - Plan for repeat ERCP in 3 months to remove/exchange stent depending on clinical course. - Follow up IR recommendations - The potential complications and concerning symptoms/findings, including but not limited to early or delayed fevers, infection, pain, bleeding, perforation, pancreatitis, and stent migration/obstruction were discussed with the patient/caregiver. Emergency contact information was provided. Procedure Code(s): --- Professional --- 84424, Endoscopic retrograde cholangiopancreatography (ERCP); with placement of endoscopic stent into biliary or pancreatic duct, including pre- and post-dilation and guide wire passage, when performed, including sphincterotomy, when performed, each stent 40152, Endoscopic retrograde cholangiopancreatography (ERCP); with removal of calculi/debris from biliary/pancreatic duct(s) 02168, Endoscopic catheterization of the biliary ductal system, radiological supervision and interpretation Diagnosis Code(s): --- Professional --- Z96.89, Presence of other specified functional implants T85.520A, Displacement of bile duct prosthesis, initial encounter Z46.59, Encounter for fitting and adjustment of other gastrointestinal appliance and device K91.89, Other postprocedural complications and disorders of digestive system K83.8, Other specified diseases of biliary tract CPT copyright 2022 [employer]. All rights reserved. The codes documented in this report are preliminary and upon assistant tennis professional review may be revised to meet current compliance requirements. Cary Vásquez MD 01/20/2025 1:48:25 PM This report has been signed electronically. Note Initiated On: 01/20/2025 12:03 PM Number of Addenda: [id number] [place] [address] PROVATION 01/20/2025 12:0 3 PM BUSINESS SERVICES ADMINISTRATOR us Cary Vásquez MD GI PROCEDURE ORDERABLES Edited Result - Final [facility] PROVATION * ETT LINE PERFORMABLE (01/20/2025 11:33 AM BUSINESS SERVICES ADMINISTRATOR) Narrative Ginna Rodriguez APRN-SWING TENDER - 01/20/2025 11:33 AM BUSINESS SERVICES ADMINISTRATOR Ginna Rodriguez APRN-CRNA 01/20/2025 11:33 AM Endotracheal Tube Placement: Patient Location: OR. Intubation Event Date/Time: 01/20/2025 11:02 AM Procedure: intubation (08419) Procedure Section: Sedation: under general anesthesia. Indications for Airway Management: anesthesia Induction: standard IV Patient Position: sniffing and supine Mask Ventilation: easy. Blade Type: Chris Blade Size: 4 Laryngoscopy View: grade 2 (partial cords) Intubation Adjuncts: stylet Tube: endotracheal tube Placement: oral Tube type: cuff - inflated Tube Size (MM): 8 Depth of Insertion (CM): 23 Measured From: lips Cuff Inflated With: air Number of Attempts: 1. Placement Verified By: direct visualization, chest auscultation, CO2 detector, CO2 monitor and bilateral breath sounds CXR Findings: ETT in proper place. Tube secured with: adhesive tape. Dentition unchanged? Yes Difficult Airway? No. Procedure Start Time: 01/20/2025 11:02 AM. Staff Section Anesthesia Provider: Ginna Rodriguez APRN-CRNA, Performed the procedure Provider #1: Lorenzo Coats MD. Additional Comments: Atraumatic intubation no change in dentition or soft tissue of aw after dl.. Lorenzo Coats MD GENERAL ANESTHESIA ORDERABLES Final Result * GLUCOSE - POINT OF CARE (01/20/2025 6:38 AM [facility]) Only the most recent of4 resultswithin the time period is included. Glucose WB/POC 93 70 - 99 mg/dL 01/20/2025 6:39 AM [facility] Specimen Type Arterial/C apillary 01/20/2025 6:39 AM [facility] Blood BLOOD SPECIMEN / Unknown 01/20/2025 6:38 AM BUSINESS SERVICES ADMINISTRATOR 01/20/2025 6:39 AM [facility] us Yang Rios MD LAB - POINT OF CARE ORDERABLES Final Result [facility] [address] [place] [address], [place] [phone] * BLOOD TYPE VERIFICATION (01/20/2025 5:19 AM BUSINESS SERVICES ADMINISTRATOR) ABO Rh O POS 01/20/2025 6:1 9 AM [facility] Blood Bank BLOOD SPECIMEN / Unknown Venipuncture / Unknown 01/20/2025 5:19 AM BUSINESS SERVICES ADMINISTRATOR 01/20/2025 5:25 AM BUSINESS SERVICES ADMINISTRATOR Yang Rios MD LAB - BLOOD BANK ORDERABLES Fi nal Result Performing Organization Address City/[facility]/ZIP Co de Phone Number [facility] [address] [place] [address], [place] [phone] * HEMOGLOBIN A1C (01/20/2025 3:33 AM BUSINESS SERVICES ADMINISTRATOR) [facility] Hemoglobin A1c 5.5 <=5.6 % 01/20/2025 9:32 AM [facility] Estimated Average Glucose 111 mg/dL 01/20/2025 9:32 AM [facility] Comment: HbA1c Interpretation: Normal : < 5.7% Pre-diabetes: 5.7-6.4% Diabetes: Equal to or greater than 6.5% Test results diagnostic of diabetes should be repeated for confirmation. Treatment target values recommended by ADA and other clinical organizations should be used to evaluate metabolic control in patients. Reference: [place] [employer], Standards of Care in Diabetes -2020 In patients 70 years and older consider HbA1c target range of 7.0-7.5% (Reference: Сергей Chen et al. JAMDA. 2012) The Sebia assay for the measurement of HbA1c is a National Glycohemoglobin Standardization Program (NGSP) certified method. Blood BLOOD SPECIMEN / Unknown Venipuncture / Unknown 01/20/2025 3:33 AM BUSINESS SERVICES ADMINISTRATOR 01/20/2025 3:46 AM BUSINESS SERVICES ADMINISTRATOR us Yang Rios MD LAB - CHEMISTRY ORDERABLES Fin al Result Performing Organization Address City/[facility]/ZIP Co de Phone Number [facility] [address] [place] [address], [place] [phone] * TYPE + SCREEN PANEL (01/20/2025 3:33 AM BUSINESS SERVICES ADMINISTRATOR) Antibody Screen NEG 4:39 AM BUSINESS SERVICES ADMINISTRATOR [facility] ABO Rh O POS 01/20/2025 4:39 AM BUSINESS SERVICES ADMINISTRATOR [facility] Blood Bank BLOOD SPECIMEN / Unknown Venipuncture / Unknown 01/20/2025 3:33 AM BUSINESS SERVICES ADMINISTRATOR 01/20/2025 3:59 AM BUSINESS SERVICES ADMINISTRATOR us Lorenzo Coats MD LAB - BLOOD BANK ORDERABLES F inal Result [facility] [address] [place] [address], [facility] [phone] * XR CHEST 1VW PORTABLE (01/20/2025 12:21 AM BUSINESS SERVICES ADMINISTRATOR) Anatomical Region Laterality Modality Chest Digital Radiogra phy 01/20/2025 10:4 4 AM BUSINESS SERVICES ADMINISTRATOR Narrative 01/20/2025 12:56 PM BUSINESS SERVICES ADMINISTRATOR PROCEDURE: XR CHEST 1VW PORTABLE, DATE/TIME OF EXAM: 01/20/2025 12:22 AM, LOCATION [facility] INDICATION: T85.520A: Displacement of biliary stent, initial encounter ADDITIONAL CLINICAL INFORMATION: Ordering Provider Reason For Exam: icu transfer COMPARISON: None. TECHNIQUE: Frontal radiograph of the chest. FINDINGS/IMPRESSION: There is no focal consolidation, pleural effusion, or pneumothorax. The cardiomediastinal silhouette is normal. The visible bony thorax is intact. Report dictated by Patel Chakraborty MD, MD (assistant professor of radiology). > Dictated by Patient Portal Concierge I, Monica Borges MD have personally reviewed and interpreted this examination/study. > Interpreting Provider: Monica Borges MD on 01/20/2025 12:56 PM Procedure Note Monica Borges MD - 01/20/2025 PROCEDURE: XR CHEST 1VW PORTABLE, DATE/TIME OF EXAM: 01/20/2025 12:22AM, LOCATION [facility] INDICATION: T85.520A: Displacement of biliary stent, initial encounter ADDITIONAL CLINICAL INFORMATION: Ordering Provider Reason For Exam: icu transfer COMPARISON: None. TECHNIQUE: Frontal radiograph of the chest. FINDINGS/IMPRESSION: There is no focal consolidation, pleural effusion, or pneumothorax. The cardiomediastinal silhouette is normal. The visible bony thorax is intact. Report dictated by Patel Chakraborty MD, MD (assistant professor of radiology). > Dictated by Patient Portal Concierge I, Monica Borges MD have personally reviewed and interpreted this examination/study. > Interpreting Provider: Monica Borges MD on 01/20/2025 12:56 PM Emil Spears MD DIAGNOSTIC IMAGING ORDE RABLES Final Result * CULTURE BLOOD (01/19/2025 2:41 PM BUSINESS SERVICES ADMINISTRATOR) Only the most recent of2 resultswithin the time period is included. Pathologist [facility] Culture No growth day 5 IMANI 01/24/2025 8:01 PM BUSINESS SERVICES ADMINISTRATOR [facility] Blood PERIPHERAL BLOOD / Unknown Venipuncture / Unknown 01/19/2025 2:41 PM BUSINESS SERVICES ADMINISTRATOR 01/19/2025 2:44 PM BUSINESS SERVICES ADMINISTRATOR Emil Spears MD LAB - MICROBIOLOGY ORDE RABLES Final Result [facility] [address] [place] [address], [facility] [phone] * (ABNORMAL) CALCIUM IONIZED WHOLE BLOOD (01/19/2025 1:40 PM BUSINESS SERVICES ADMINISTRATOR) Calcium Ionized 1.12 mmol/L 01/19/2025 1:47 PM BUSINESS SERVICES ADMINISTRATOR [facility] pH 7.43 7.35 - 7.45 pH 01/19/2025 1:47 PM BUSINESS SERVICES ADMINISTRATOR [facility] Ionized Calcium pH Adjusted 1.13(L) 1.19 - 1.34 mmol/L 01/19/2025 1:47 PM BUSINESS SERVICES ADMINISTRATOR [facility] Blood BLOOD SPECIMEN / Unknown Venipuncture / Unknown 01/19/2025 1:40 PM BUSINESS SERVICES ADMINISTRATOR 01/19/2025 1:44 PM BUSINESS SERVICES ADMINISTRATOR Emil Spears MD LAB - CHEMISTRY ORDERAB LES Final Result [facility] [address] [place] [address], [place] [phone] * LACTIC ACID BLOOD (01/19/2025 1:40 PM BUSINESS SERVICES ADMINISTRATOR) Lactic Acid-Stat 1.0 <=2.0 mmol/L 01/19/2025 2:19 PM BUSINESS SERVICES ADMINISTRATOR [facility] Blood BLOOD SPECIMEN / Unknown Venipuncture / Unknown 01/19/2025 1:40 PM BUSINESS SERVICES ADMINISTRATOR 01/19/2025 1:47 PM BUSINESS SERVICES ADMINISTRATOR Emil Spears MD LAB - CHEMISTRY ORDERAB LES Final Result Performing Organization Address City/[facility]/ZIP Co de Phone Number [address] [address], [facility] [phone] * PTT (01/19/2025 12:54 PM BUSINESS SERVICES ADMINISTRATOR) [facility] APTT 31.9 23.0 - 38.4 Seconds 01/19/2025 1:17 PM BUSINESS SERVICES ADMINISTRATOR [facility] Comment:Suggested therapeuti c range for full dose I.V. unfractionated heparin therapy for venous thromboembolism is 71 to 109 seconds. Blood BLOOD SPECIMEN / Unknown Venipuncture / Unknown 01/19/2025 12:54 PM BUSINESS SERVICES ADMINISTRATOR 01/19/2025 12:58 PM BUSINESS SERVICES ADMINISTRATOR Emil Spears MD LAB - COAGULATION ORDER [place] Final Result Performing Organization Address [facility] Co de Phone Number [address] [address], [facility] [phone] * PREPARE (CROSSMATCH) RBC UNIT(S), 2 Units (01/19/2025 3:33 AM BUSINESS SERVICES ADMINISTRATOR) Only the most recent of2 resultswithin the time period is included. Pathologist [facility] Unit Description N/A [facility] Blood Bank BLOOD SPECIMEN / Unknown 01/19/2025 3:33 AM BUSINESS SERVICES ADMINISTRATOR 01/20/2025 3:59 AM BUSINESS SERVICES ADMINISTRATOR Yang Rios MD LAB - BLOOD BANK ORDERABLES Fi nal Result Performing Organization Address City/[facility]/ZIP Co de Phone Number [facility] [address] [place] [address], [facility] [phone] from Last 3 Months Insurance SELF PAY NO INSURANCE Member Subscriber Plan / Payer (Ef fective for All Dates) Name:Tabitha Earline Ramone Member ID:Not on file Relation to Subscriber:Not on file Name:EARLINE LU Subscriber ID:Not on file (Home) Address: [address] [place] [address] Payer ID:Not on file Group ID:Not on file Type:Self Pay Address: [facility] Advance Directives * Full Code (Latest Code Status on File) Date Activated Date Inactivated Comments 01/19/2025 1:28 PM 01/23/2025 2:26 PM Care Teams Painter And Paperhanger Apprentice Relationship Specialty Start Date End Date Anthony Deal MD [address] [place] [id number] PCP - General Internal Medicine 01/20/25
--- OUTSIDE RECORDS SUMMARY | 2025-01-25 18:08 | XMS_ITS | Encounter Summary ---
Author Organization [facility] Address [address] [facility] [place] [address] Care Team Providers Care Course Instructor Name Role Phone Anthony Deal MD Primary Care Provider [phone] Reason for Visit * Reason Onset Date Comments Transitional Care 01/24/2025 Encounter Details Date Type Department Care Team (Late st Contact Info) Description 01/24/2025 Telephone Transitional Care at [address] [address] Batsheva Muñiz, RN Transitional Care Social History Tobacco Use Types Packs/Day Years [...] more drinks on one occasion? Never 01/19/2025 [facility] of Occupat ional Health - Occupational Stress [...] any time in the past 12 m [facility], were you homeless or living in a retirement (including now)? No 01/19/2025 [facility] Utilities Answer Date Recorded In the past 12 months has e sambaash, gas, oil, or water [employer] threatened to shut off services in your home? No 01/19/2025 Sex and Gender Information Value Date Recorded Sex Assigned at Not on file Legal Sex Male 3:58 PM X RAY EQUIPMENT TESTER Gender Identity Not on file Sexual Orientation Not on file documented as of this encounter Functional Status * Is person deaf or have serious hearing difficulty? Answer Date of Assessment Author No 01/19/2025 12:50 PM Lawanda Astorga RN * Is person blind or have serious difficulty seeing? Answer Date of Assessment Author No 01/19/2025 12:50 PM Lawanda Astorga RN * Does person have serious difficulty walking/climbing stairs? Answer Date of Assessment Author No 01/19/2025 12:50 PM X RAY EQUIPMENT TESTER Lawanda Yang RN * Does person have [...] encounter Miscellaneous Notes * Telephone Encounter - Batsheva Muñiz RN - 01/24/2025 1:55 PM CST RN 48 hour post discharge follow-up contact by telephone: Patient with recent acute discharge from [facility] on 01/23/2025. This RN contacted patient by telephone ([phone]) to complete 48-hour post- discharge follow-up encounter for [facility] appointment. How are you feeling after getting home from the hospital? Patient states he is doing good. Do you have a current Primary Care Provider? yes When is your PCP follow up scheduled? 02/01/2025 also has an appointment to follow up with his GI doctor. Does patient have a [facility] appt scheduled? no If no, schedule appt with patient. Explained [facility] to patient. Patient declined appointmentat this time. Do you have all your prescribed medications? yes If no, why? Remind patient to bring medications to appt. yes Chart review for any wounds, lines, or drains. Do you know how to care for wound/line/drain? N\A Do you have all the supplies you need? N\A Do you have transportation to your [facility] appt? yes If no, action taken. Are you receiving any home health services? no If yes, do you have a start of care date? Did patient receive ordered DME at [place], if applicable? N\A Do you have any additional questions or concerns that I can help with? no Patient denied any further questions at this time. Patient was encouraged to call this typewriter operator automatic with questions, concerns, barriers to care, and/or additional resources if needed. Reminded patient to bring all medications, insurance/ID cards, testing/wound supplies, and BP/glucose logs as applicable. Patient verbalized understanding and agreement with plan. This CM and clinic number provided to patient. Call Duration: 15 mins Batsheva Muñiz RN, BSN Nurses Assistant, [facility] Office: [phone] 01/24/2025 X RAY EQUIPMENT TESTER documented in this encounter Plan of Treatment Upcoming Encounters Date Type Department Care Team (Latest Contact Info) Description 04/20/2025 11:00 AM CDT Hospital Encounter [facility] [address] [place] [address] Cary Vásquez MD [address] [place] [phone] Surgery General 04/20/2025 11:00 AM CDT - 04/20/2025 12:00 PM CDT Surgery [facility] [address] [place] [address] Cary Vásquez MD [facility] [place] [address] ENDOSCOPIC RETROGRADE CHOLANGIOPANCREATOGRAPHY (ERCP) Scheduled Procedures Name Priority Associated Diagnoses Date/Ti ok ENDOSCOPIC RETROGRADE CHOLANGIOPANCREATOGRAPHY (ERCP) Encounter for replacement of biliary stent 04/20/2025 11:00 AM CDT documented as of this encounter Visit Diagnoses Not on filedocumented in this encounter Care Teams Course Instructor Relationship Specialty Start Date End Date Anthony Deal MD [address] [place] [id number] PCP - General Internal Medicine 01/20/25 documented as of this encounter
--- OUTSIDE RECORDS SUMMARY | 2025-01-25 18:09 | XMS_ITS | Patient Health Record ---
Author Organization [facility] [employer] [place] ([address]) Address [address] [place] [address] Care Team Providers Care Rig Operator Name Role Phone Anthony Deal MD Primary Care Provider Unavail Harrison Estrada Unavailable [phone] Chelsey Marcelino Unavailable [phone] Allergies No Known Allergies Reason For Referral [...] day; Duration: 90 days 03/27/2023 Active Ipratropium [place] 0.06 % 2 spray(s) intranasally 3 times [...] and drug interaction check* 06/17/2023 Not-Taking Ipratropium [place] 0.06 % 4 sprays 2 sprays in [...] Problem Allergic rhinitis caused by pollen (disorder) (34952711) Allergic rhinitis due to pollen (J30.1) Active confirmed Problem Chronic rhinitis (50532461) Chronic rhinitis (J31.0) Active confirmed Problem Chronic cough (03665005) Chronic cough (R05.3) Active confirmed Problem Cough (finding) (84546882) Cough, unspecified (R05.9) Active confirmed Vital Signs Oximetry 97 % 06/21/2024 Blood pressure diastolic 74 mm Hg 06/21/2024 Height 74 in 06/21/2024 Blood pressure systolic 112 mm Hg 06/21/2024 Weight 256.6 lbs 06/21/2024 BMI 32.94 kg/m2 06/21/2024 Encounters Encounter Location Date Provider Diagnosis [facility] [address] [facility] [address] [place] [address] 06/21/2024 Chelsey Ayalakayli Chronic cough R05.3 and [...] visit. 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 - Spirometry [...] Insured Coverage Start Date Coverage End Date [facility] [address] [place] [address] [id number] Main Lu Self - patient is the insured Medical (General) History Surgical History Surgery Date(Month/Year) Thyroidectomy 03/13/2019 cataract removal gallbladder removal 03/14/24
--- OUTSIDE RECORDS SUMMARY | 2025-01-25 18:09 | XMS_ITS | Clinical Summary ---
Author Organization [facility] Address [address] [place] [address] Care Team Providers Care Auto Glass Technician Name Role Phone Anthony Dela MD Primary Care Provider [phone] Allergies Active Allergy Reactions Criticality Noted Date Comments Penicillins Unknown 01/16/2025 Medications cholecalciferol (VITAMIN D-3) 125 MCG (5000 UT) Tab Take 1 tablet (5,000 Units total) by mouth daily. Active Cyanocobalamin (VITAMIN B-12) [address] 1,000 mcg under the tongue daily. Active zinc gluconate 50 MG Tab Take 1 tablet (50 mg total) by mouth daily. Active Magnesium Oxide -Mg Supplement 400 MG Tab Take 400 mg by mouth daily. Active meloxicam (MOBIC) 15 [...] FURTHER REFILLS) 90 tablet 01/01/20 25 Active carvedilol (COREG) 6.25 MG tablet Take 1 tablet (6.25 mg total) by mouth 2 (two) times daily. 08/04/19 25 Active famotidine (PEPCID) 20 MG tablet Take 1 tablet (20 mg total) by mouth 2 (two) times daily. Active EPSOLAY 5 % Cream 01/16/20 23 025 Discontinued(Er ror) montelukast (SINGULAIR) 10 MG tablet nightly at bedtime. 03/25/19 24 025 Discontinued(Er ror) omeprazole (PRILOSEC) 20 MG capsule Take 1 capsule (20 mg total) by mouth 2 (two) times a day. 11/10/19 24 025 Discontinued(Er ror) cetirizine (ZYRTEC) 10 MG tablet Take 1 tablet (10 mg total) by mouth daily. 025 Discontinued(Er ror) hydroCHLOROthiaz felix (HYDRODIURIL) 25 MG tabletIndication s:Benign essential hypertension TAKE 1 TABLET EVERY MORNING (MUST BE SEEN FOR FURTHER REFILLS) 90 tablet 3 01/09/20 24 025 Discontinued nebivolol (BYSTOLIC) 20 MG tabletIndication s:Benign essential hypertension TAKE 1 TABLET DAILY 90 tablet 3 02/05/20 24 025 Discontinued(Er ror) Pyridoxine HCl (B-6) 100 MG Tab Take 1 tablet by mouth daily. 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 Erectile dysfunction 01/12/2015 Hypogonadism male 01/12/2015 Obstructive sleep apnea 01/12/2015 Resolved Problems Problem Noted Date Diagnosed Date Resolved Date Severe sepsis 01/16/2025 01/18/2025 Encounters Date Type Department Care Team Description 01/25/2025 Telephone [facility] Medical [facility] Family & Internal Medicine [address] [phone] Anthony Deal MD Advice 01/21/2025 Telephone [facility] Family & Internal Medicine [address] [phone] Anthony Deal MD [facility] 01/17/2025 11:42 AM [facility] Anesthesia Event [facility] [place] [address] [place] [address] Lorenzo Enriquez MD Shaina, Kalli [place] MD 01/17/2025 11:00 AM [facility] - 01/17/2025 12:00 PM [facility] Surgery [facility] [place] [address] [place] [address] Michel Dasilva MD ERCP WITH SPHINCTEROTOMY and stent placement 01/16/2025 9:28 PM [facility] [employer] - 01/19/2025 10:40 AM [facility] [employer] Hospital Encounter [facility] Cardiovascular ICU [address] [place] [address] Jonnathan Knapp MD Naveed, MD Dustin Powell Obiora I, MD Goyal, Pankaj, MD Discharge Disposition: Transfer to Acute Care Hospital 01/16/2025 Scan HEALTH INFO SRVCS Scanned, [facility] (SCAN) 01/16/2025 Travel 11/03/2024 Scan HEALTH INFO SRVCS Scanned, [facility] from Last 3 Months Immunizations Immunization Administration Dates Next Due Fluzone (IIV3, Trivalent, 0. 5 ML Prefilled Syringe) 12/08/2023 Fluzone 6 Months+ Quad (0.5 mL Prefilled Syringe) 11/13/2019 Influenza (Generic) 11/19/2017,11/10/2014 Influenza Adult (Generic) 12/01/2018,,11/10/2014,2012,01/14/2012 Tdap (Adacel) 07/09/2019 Zoster (Zostavax) [id number] Unt/0.65Ml 08/02/2016 Family History Medical History Relation [...] any time in the past 12 m [facility], were you homeless or living in a retirement (including now)? No 01/16/2025 [facility] Utilities Answer Date Recorded In the past 12 months has th e electric, gas, oil, or water [employer] threatened to shut off services in your home? No 01/16/2025 Sex and Gender Information Value Date Recorded Sex Assigned at Male 02/16/2018 2:46 PM [facility] [employer] Legal Sex Male 8:21 PM CDT Gender Identity Male 02/16/2018 2:46 PM [facility] [employer] Sexual Orientation Straight 02/16/2018 2: 46 PM [facility] [employer] Last Filed Vital Signs Vital Sign Reading Time Taken Comments Blood Pressure 122/79 01/19/2025 10:00 AM [facility] Pulse 88 01/19/2025 10:15 AM [facility] Temperature 36.5 C (97.7 F) 01/19/2025 8:00 AM [facility] Respiratory Rate 22 01/19/2025 10:1 5 AM [facility] Oxygen Saturation 97% 01/19/2025 10: 15 AM [facility] Inhaled Oxygen Concentration - - Weight 103.2 kg (227 lb 8.2 oz) 01/17/2025 9:00 AM [facility] Height 188 cm (6' 2.02) 01/17/2025 9:00 AM [facility] Body Mass Index 29.2 01/17/2025 9:00 AM [facility] Plan of Treatment Upcoming Encounters Date Type Department Care Team (Late st Contact Info) Description 02/01/2025 10:40 AM [facility] [employer] Office Visit [facility] Medical Group Family & Internal Medicine - [address] [phone] Anthony Deal MD [address] [place] [id number] Health Maintenance Due Date Last Done Comments Hepatitis A Vaccines (1 of 2 - Risk 2-dose series) 1981 Pneumococcal Vaccine: 50+ Years (1 of 1 - PCV) 2012 Zoster Vaccines (3 of 3) 10/27/2021 09/01/2021, 07/12 COVID-19 Vaccine ( - season) 2024 09/01/2021, 01/31/2021, 05/15/2020, Additional history exists Annual Physical 12/07/2024 12/08/2023 Colorectal Cancer Screening FIT-DNA (3 Years) 12/20/2026 12/21/2023, 12/21/2023, 10/30/2020, Additional history exists DTaP, Tdap and Td Vaccines (2 - Td or Tdap) 07/08/2029 07/09/2019, 02/10/2001 RSV Immunization or 60+ Years Completed 02/18/2023 PHQ-2 (Physician [place]) Completed 04/06/2024 Hepatitis C Completed 06/22/2024, 12/30/2023 Influenza Adult Completed 11/23/2024, 11/11, 11/22/2022, Additional history exists Meningococcal B Vaccine Aged Out No l onger eligible based on patient's age to complete this topic Meningococcal Vaccine Aged Out No cat lizzy eligible based on patient's age to complete this topic RSV Immunizations Under 20 Months Aged Out No longer eligible based on patient's age to complete this topic Medical Devices Implanted Type Area Machine Designer Device Identifier Shelf Expiration Date Model / Serial / Lot Advanix Biliary Duodenal Bend Biliary Stent With [id number] Rx Delivery System Implanted:Qty: 1 on 01/17/2025 by Michel Dasilva MD at [facility] [id number] 05/04/2026 [id number] / [id number] / [id number] Procedures Procedure Name Priority Date/Time Associated Diagnosis Comments POCT GLUCOSE - DOCKED DEVICE Routine 01/19/2025 9:34 AM [facility] [employer] HEPATIC FUNCTION PANEL Routine 4:46 AM [facility] [employer] BASIC METABOLIC PANEL Routine 01/19/2025 4:46 AM [facility] [employer] PHOSPHORUS, INORGANIC PHOSPHATE Routine 01/19/2025 4:46 AM [facility] [employer] MAGNESIUM Routine 01/19/2025 4:46 AM [facility] [employer] PROTHROMBIN TIME, VENOUS Routine 01/19/2025 4:45 AM [employer] [employer] HC CBC AUTO W/AUTO DIFF Routine 01/19/2025 4:45 AM [facility] [employer] POCT GLUCOSE - DOCKED DEVICE Routine 01/19/2025 12:16 AM [facility] [employer] HEMOGLOBIN AND HEMATOCRIT TIMED 01/19/2025 12:00 AM [facility] [employer] POCT GLUCOSE - DOCKED DEVICE Routine 01/18/2025 8:43 PM [facility] [employer] XR ABD UPRIGHT STAT 01/18/2025 7:29 PM [facility] [employer] XR CHEST PORTABLE STAT 01/18/2025 7:2 9 PM [facility] [employer] LACTIC ACID STAT 01/18/2025 6:22 PM [facility] [employer] LIPASE Routine 01/18/2025 6:21 PM [facility] [employer] COMPREHENSIVE METABOLIC PANEL STAT 01/18/2025 6:21 PM [employer] [employer] HC CBC AUTO W/AUTO DIFF Routine 01/18/2025 6:12 PM [facility] [employer] POCT GLUCOSE - DOCKED DEVICE Routine 01/18/2025 5:22 PM [facility] [employer] POCT GLUCOSE - DOCKED DEVICE Routine 01/18/2025 11:32 AM [facility] [employer] HEMOGLOBIN AND HEMATOCRIT TIMED 01/18/2025 11:[address] ABD+PEL W CON STAT 01/18/2025 10:5 4 AM [facility] [employer] HEPATIC FUNCTION PANEL Routine 3:58 AM [facility] [employer] BASIC METABOLIC PANEL Routine 01/18/2025 3:58 AM [facility] [employer] PROTHROMBIN TIME, VENOUS Routine 01/18/2025 3:58 AM [facility] [employer] PHOSPHORUS, INORGANIC PHOSPHATE Routine 01/18/2025 3:58 AM [facility] [employer] MAGNESIUM Routine 01/18/2025 3:58 AM [employer] [employer] HC CBC AUTO W/AUTO DIFF Routine 01/18/2025 3:58 AM [facility] [employer] LACTIC ACID TIMED 01/18/2025 3:58 AM [facility] [employer] HEMOGLOBIN AND HEMATOCRIT TIMED 01/18/2025 12:05 AM [facility] [employer] LACTIC ACID TIMED 01/18/2025 12:05 AM [facility] [employer] HEMOGLOBIN AND HEMATOCRIT TIMED 01/17/2025 7:45 PM [facility] [employer] MAGNESIUM Routine 01/17/2025 7:45 PM [facility] [employer] BASIC METABOLIC PANEL Routine 01/17/2025 7:45 PM [facility] [employer] LACTIC ACID TIMED 01/17/2025 7:45 PM [facility] [employer] HEMOGLOBIN AND HEMATOCRIT TIMED 01/17/2025 4:00 PM [facility] [employer] LACTIC ACID TIMED 01/17/2025 4:00 PM [facility] [employer] POCT GLUCOSE - DOCKED DEVICE Routine 01/17/2025 3:52 PM [facility] [employer] HEMOGLOBIN AND HEMATOCRIT TIMED 01/17/2025 2:30 PM [facility] [employer] POCT GLUCOSE - DOCKED DEVICE Routine 01/17/2025 2:26 PM [facility] [employer] SURG XR FLUOROSCOPY Routine 01/17/2025 1 :08 PM [employer] [employer] ERCP 01/17/2025 11:40 AM [facility] [employer] ERCP,SPHINCTEROTOMY 01/17/2025 1 1:39 AM [facility] [employer] Cholangitis due to bile duct calculus with obstruction POCT GLUCOSE - DOCKED DEVICE Routine 01/17/2025 11:30 AM [facility] [employer] LACTIC ACID TIMED 01/17/2025 9:40 AM [facility] [employer] POCT GLUCOSE - DOCKED DEVICE Routine 01/17/2025 6:41 AM [employer] [employer] HC BLOOD TYPING ABO Routine 01/17/2025 5 :40 AM [employer] [employer] AMMONIA Routine 01/17/2025 5:40 AM [facility] [employer] PROTHROMBIN TIME, VENOUS Routine 01/17/2025 5:40 AM [facility] [employer] HEPATIC FUNCTION PANEL Routine 5:40 AM [facility] [employer] HC CBC AUTO W/AUTO DIFF Routine 01/17/2025 5:40 AM [facility] [employer] BASIC METABOLIC PANEL Routine 01/17/2025 5:40 AM [facility] [employer] POCT GLUCOSE - DOCKED DEVICE Routine 01/17/2025 1:14 AM [facility] [employer] POCT GLUCOSE - DOCKED DEVICE Routine 01/16/2025 11:26 PM [facility] [employer] HEPATIC FUNCTION PANEL Routine 11:00 PM [facility] [employer] LACTIC ACID Routine 01/16/2025 11:00 PM [facility] [employer] BASIC METABOLIC PANEL Routine 01/16/2025 11:00 PM [employer] [employer] HC CBC AUTO W/AUTO DIFF Routine 01/16/2025 11:00 PM [facility] [employer] CULTURE, BACTERIA, BLOOD Routine 01/16/2025 10:59 PM [facility] [employer] CULTURE, BACTERIA, BLOOD Routine 01/16/2025 10:59 PM [employer] [employer] POCT GLUCOSE - DOCKED DEVICE Routine 01/16/2025 10:30 PM [employer] [employer] POCT GLUCOSE - DOCKED DEVICE Routine 01/16/2025 10:18 PM [employer] [employer] POCT GLUCOSE - DOCKED DEVICE Routine 01/16/2025 9:46 PM [employer] [employer]AME POCT GLUCOSE - DOCKED DEVICE Routine 01/16/2025 9:38 PM [facility] [employer]AME OUTSIDE LAB (SCAN ORDER) 01/16/2025 HEP C SCANNED ORDERS Routine 06/22/2024 COLOGUARD (EXACT SCIENCE) Routine 12/21/2023 10:40 AM [facility] [employer]AME Colon cancer screening from Last 3 Months or Most Recently Relevant to Health Maintenance Results * POCT glucose (01/19/2025 9:34 AM [facility] [employer]) Only the most recent of15 resultswithin the time period is included. GLUCOSE POC 90 70 - 109 01/19/2025 10:[address] [facility] 01/19/2025 9:34 AM SP[employer] [employer]AME us Nadege Prieto MD POCT ORDERABLES - DEVICE Final R esult Performing Organization Address City/[facility]/ZIP Co de Phone Number [facility] [address] [place] [address], [phone] * PHOSPHORUS, INORGANIC PHOSPHATE (01/19/2025 4:46 AM [employer] [employer]AME) Only the most recent of2 resultswithin the time period is included. PHOSPHORUS 2.5 2.5 - 4.9 MG/DL 01/19/2025 5:[address] [facility] BLOOD VENOUS BLOOD SPECIMEN / Unknown 01/19/2025 4:46 AM [employer] [employer]AME us Nadege Prieto MD LABORATORY Final Result Performing Organization Address [facility]/ZIP Co de Phone Number [facility] [address] [place] [id number], [phone] * MAGNESIUM (01/19/2025 4:46 AM [facility] [employer]AME) Only the most recent of3 resultswithin the time period is included. MAGNESIUM 1.9 1.6 - 2.6 MG/DL 01/19/2025 5:[address] [facility] Comment:RESULT QUESTIONABLE DUE TO HEMOLYSIS, CONSIDER RECOLLECTION. BLOOD VENOUS BLOOD SPECIMEN / Unknown 01/19/2025 4:46 AM [employer] [employer]AME us Nadege Prieto MD LABORATORY Final Result Performing Organization Address [facility]/ZIP Co de Phone Number [facility] [address] [place] [address], [phone] * (ABNORMAL) HEPATIC FUNCTION PANEL (01/19/2025 4:46 AM [facility] [employer]) Only the most recent of4 resultswithin the time period is included. BILIRUBIN TOTAL S/P/B 10.9(H) 0.2 - 1.0 MG/DL 01/19/2025 5:[address] [facility] BILIRUBIN DIRECT S/P/B 8.3(H) 0.0 - 0.2 MG/DL 01/19/2025 5:[address] [address] [facility] ALKALINE PHOSPHATASE S/P/B 196(H) 45 - 115 U/L 01/19/2025 5:43 AM [facility] AST 82(H) 15 - 37 U/L 01/19/2025 5:43 AM [facility] ALT 90(H) 16 - 61 U/L 01/19/2025 5:43 AM [facility] TOTAL PROTEIN S/P/B 4.8(L) 6.4 - 8.2 G/DL 01/19/2025 5:[address] [facility] [address] [facility] ALBUMIN S/P/B 1.8(L) 3.4 - 5.0 G/DL 01/19/2025 5:[address] [address] [facility] BLOOD VENOUS BLOOD SPECIMEN / Unknown 01/19/2025 4:46 AM [facility] [employer] us Nadege Prieto MD LABORATORY Final Result [facility] [address] [place] [address], [phone] * (ABNORMAL) BASIC METABOLIC PANEL (01/19/2025 4:46 AM [facility] [employer]) Only the most recent of5 resultswithin the time period is included. SODIUM S/P/B 141 136 - 145 MMOL/L 01/19/2025 5:43 AM [facility] POTASSIUM S/P/B 3.8 3.5 - 5.1 MMOL/L 01/19/2025 5:43 AM [facility] Comment:SLIGHT HEMOLYSIS, RE SULT MAY BE AFFECTED. CHLORIDE S/P/B 113 97 - 115 MMOL/L 01/19/2025 5:43 AM [facility] CO2 21.7 21.0 - 32.0 MMOL/L 01/19/2025 5:43 AM [facility] GLUCOSE 93 74 - 106 MG/DL 01/19/2025 5:43 AM [facility] BUN 20(H) 7 - 18 MG/DL 01/19/2025 5:43 AM [facility] CREATININE S/P/B 0.78 0.70 - 1.30 MG/DL 01/19/2025 5:43 AM [facility] CALCIUM S/P/B 8.1(L) 8.5 - 10.1 MG/DL 01/19/2025 5:43 AM [facility] ANION GAP 6.3 2.0 - 10.0 MMOL/L 01/19/2025 5:43 AM [facility] OSMOLALITY (CALC) 294 MOSM/KG 025 5:43 AM [facility] Comment:REFERENCE RANGE NOT ESTABLISHED GFR ESTIMATE >90 >90 ML/MIN/1. 73 M2 01/19/2025 5:43 AM [facility] GFR NOTES GFR REFERENCE S: 01/19/2025 5:43 AM [facility] Comment: THE ESTIMATED GFR IS CALCULATED USING THE 2020 CKD-EPI EQUATION. THE FOLLOWING CATEGORIES FOR GRADING RENAL FUNCTION ARE RECOMMENDED BY THE INTERNATIONAL SOCIETY OF NEPHROLOGY (KDIGO 2012 CLINICAL PRACTICE GUIDELINE). G1,NORMAL OR HIGH: >89 ml/min/1.73 m2 G2,MILDLY DECREASED: 60-89 ml/min/1.73 m2 G3A,MILDLY TO MODERATELY DECREASED: 45-59 ml/min/1.73 m2 G3B,MODERATELY TO SEVERELY DECREASED: 30-44 ml/min/1.73 m2 G4,SEVERELY DECREASED: 15-29 ml/min/1.73 m2 G5,KIDNEY FAILURE: <15 ml/min/1.73 m2 BLOOD VENOUS BLOOD SPECIMEN / Unknown 01/19/2025 4:46 AM [facility] [employer] us Nadege Prieto MD LABORATORY Final Result Performing Organization Address [facility] Co de Phone Number [facility] [address] [place] [address], [phone] * (ABNORMAL) PROTIME/INR, VENOUS (01/19/2025 4:45 AM [facility] [employer]) Only the most recent of3 resultswithin the time period is included. PROTIME 15.7(H) 9.4 - 12.5 SEC 01/19/2025 5:[address] [facility] [address] [facility] INR 1.3(H) 0.8 - 1.1 01/19/2025 5:[address] [facility] BLOOD VENOUS BLOOD SPECIMEN / Unknown 01/19/2025 4:45 AM [facility] [employer] us Nadege Prieto MD LABORATORY Final Result Performing Organization Address City/[facility] Co de Phone Number [facility] [address] [place] [address], [phone] * (ABNORMAL) CBC W/DIFF (01/19/2025 4:45 AM [facility] [employer]) Only the most recent of5 resultswithin the time period is included. [facility] WBC 10.21 4.00 - 10.80 x10'3/uL 01/19/2025 5:08 AM [facility] RBC 2.72(L) 4.50 - 6.10 x10'6/uL 01/19/2025 5:08 AM [facility] HGB 7.9(L) 13.0 - 18.0 G/DL 01/19/2025 5:08 AM [facility] HCT 22.4(L) 37.0 - 52.0 % 01/19/2025 5:08 AM [facility] MCV 82.4 78.0 - 100.0 FL 01/19/2025 5:08 AM [facility] MCH 29.0 27.0 - 31.0 PG 01/19/2025 5:08 AM [facility] MCHC 35.3 33.0 - 36.0 G/DL 01/19/2025 5:08 AM [facility] RDW 15.1(H) 11.5 - 14.5 % 01/19/2025 5:08 AM [facility] PLT 61(L) 150 - 350 x10'3/uL 01/19/2025 5:08 AM [facility] MPV 10.9(H) 7.4 - 10.4 FL 01/19/2025 5:08 AM [facility] DIFFERENTIAL TYPE AUTOMATED DIFFERENTIAL 01/19/2025 5:08 AM [facility] SEG NEUTROPHILS 85.0 % 5:08 AM [facility] LYMPHOCYTES 7.7 % 01/19/2025 5:08 AM [facility] MONOCYTES 5.1 % 01/19/2025 5:08 AM [facility] EOSINOPHILS 0.2 % 01/19/2025 5:08 AM [facility] BASOPHILS 0.1 % 01/19/2025 5:[address] [facility] [address] [facility] IMMATURE GRANS % 1.9 % 01/20/20 25 5:[address] [facility] ABS. NEUTROPHILS 8.68(H) 1.60 - 8.30 x10'3/uL 01/19/2025 5:[address] [facility] [address] [facility] ABS. LYMPHOCYTES 0.79(L) 0.80 - 4.70 x10'3/uL 01/19/2025 5:[address] [facility] [address] [facility] ABS. MONOCYTES 0.52 0.00 - 1.50 x10'3/uL 01/19/2025 5:[address] [facility] [address] [facility] ABS. EOSINOPHILS 0.02 0.00 - 0.40 x10'3/uL 01/19/2025 5:08 AM [facility] ABS. BASOPHILS 0.01 0.00 - 0.20 x10'3/uL 01/19/2025 5:08 AM [facility] ABS. IMMATURE GRANULOCYTES 0.19(H) 0.00 - 0.03 x10'3/uL 01/19/2025 5:08 AM [facility] ABS. NUCLEATED RBC'S 0.00 0.00 - 0.01 x10'3/uL 01/19/2025 5:08 AM [facility] NRBC % 0.0 % 01/19/2025 5:08 AM [facility] BLOOD VENOUS BLOOD SPECIMEN / Unknown 01/19/2025 4:45 AM [facility] [employer] us Nadege Prieto MD LABORATORY Final Result [facility] [address] [place] [address], [phone] * (ABNORMAL) HEMOGLOBIN AND HEMATOCRIT (01/19/2025 12:00 AM [facility] [employer]) Only the most recent of6 resultswithin the time period is included. [facility] HGB 9.0(L) 13.0 - 18.0 G/DL 01/19/2025 12:[address] [facility] HCT 25.5(L) 37.0 - 52.0 % 01/19/2025 12:[address] [facility] [address] [facility] BLOOD VENOUS BLOOD SPECIMEN / Unknown 01/19/2025 Nadege Prieto MD LABORATORY Final Result [facility] [address] [place] [address], [place] [phone] [id number] * XR CHEST PORTABLE (01/18/2025 7:29 PM [facility] [employer]AME) Anatomical Region Laterality Modality Chest Radiographic Essence ging 01/18/2025 8:06 PM [facility] [employer]AME Impressions 01/18/2025 8:41 PM [facility] [employer]AME =====IMPRESSION:===== 1. No acute cardiopulmonary abnormality. 2. No radiographic evidence of intra-abdominal free air. Dictated By: Rudolph Berrios MD on 01/18/2025 8:06 PM The attending radiologist has reviewed the image(s) and agrees with the content of this report. Ordered By: NADEGE PRIETO Interpreted By: Rudolph Berrios MD, 01/18/2025 8:06 PM Narrative 01/18/2025 8:41 PM SPINNER [employer]AME [facility] [address] [place], [place] [address] EXAMINATION: XR CHEST and abdomen, 1 VIEW [id number] Exam date/time: 01/18/2025 7:10 PM Reason For Exam: Dyspnea. Concern for intra-abdominal free air. Comparison: None Technique: AP upright radiograph of the chest and abdomen Findings: The cardiac silhouette and pulmonary vasculature are within normal limits. No focal consolidation is seen within the lungs. There are no pleural effusions. No pneumothorax. The lower abdomen is not included on this exam. No evidence of intra-abdominal free air. Nondistended loops of bowel are seen in the upper abdomen. Procedure Note Toño Ayala MD - 01/18/2025 [facility] [address] [place], [place] [address] EXAMINATION: XR CHEST and abdomen, 1 VIEW [id number] Exam date/time: 01/18/2025 7:10 PM Reason For Exam: Dyspnea. Concern for intra-abdominal free air. Comparison: None Technique: AP upright radiograph of the chest and abdomen Findings: The cardiac silhouette and pulmonary vasculature are withinnormal limits. No focal consolidation is seen within the lungs. There areno pleural effusions. No pneumothorax. The lower abdomen is not included on this exam. No evidence ofintra-abdominal free air. Nondistended loops of bowel are seen in theupper abdomen. =====IMPRESSION:===== 1. No acute cardiopulmonary abnormality. 2. No radiographic evidence of intra-abdominal free air. Dictated By: Rudolph Berrios MD on 01/18/2025 8:06 PM The attending radiologist has reviewed the image(s) and agrees with thecontent of this report. Ordered By: NADEGE PRIETO Interpreted By: Rudolph Berrios MD, 01/18/2025 8:06 PM Nadege Prieto MD GENERAL IMAGING Final Result * XR ABD UPRIGHT (01/18/2025 7:29 PM SP[employer] [employer]AME) Anatomical Region Laterality Modality Abdomen Radiographic Essence ging 01/18/2025 8:06 PM [facility] [employer]AME Impressions 01/18/2025 8:41 PM [facility] [employer]AME =====IMPRESSION:===== 1. No acute cardiopulmonary abnormality. 2. No radiographic evidence of intra-abdominal free air. Dictated By: Rudolph Berrios MD on 01/18/2025 8:06 PM The attending radiologist has reviewed the image(s) and agrees with the content of this report. Ordered By: NADEGE PRIETO Interpreted By: Rudolph Berrios MD, 01/18/2025 8:06 PM Narrative 01/18/2025 8:41 PM [facility]NER [employer]AME [facility] [address] [place], [place] [address] EXAMINATION: XR CHEST and abdomen, 1 VIEW [id number] Exam date/time: 01/18/2025 7:10 PM Reason For Exam: Dyspnea. Concern for intra-abdominal free air. Comparison: None Technique: AP upright radiograph of the chest and abdomen Findings: The cardiac silhouette and pulmonary vasculature are within normal limits. No focal consolidation is seen within the lungs. There are no pleural effusions. No pneumothorax. The lower abdomen is not included on this exam. No evidence of intra-abdominal free air. Nondistended loops of bowel are seen in the upper abdomen. Procedure Note Toño Ayala MD - 01/18/2025 [facility] [address], [place] [address] EXAMINATION: XR CHEST and abdomen, 1 VIEW [id number] Exam date/time: 01/18/2025 7:10 PM Reason For Exam: Dyspnea. Concern for intra-abdominal free air. Comparison: None Technique: AP upright radiograph of the chest and abdomen Findings: The cardiac silhouette and pulmonary vasculature are withinnormal limits. No focal consolidation is seen within the lungs. There areno pleural effusions. No pneumothorax. The lower abdomen is not included on this exam. No evidence ofintra-abdominal free air. Nondistended loops of bowel are seen in theupper abdomen. =====IMPRESSION:===== 1. No acute cardiopulmonary abnormality. 2. No radiographic evidence of intra-abdominal free air. Dictated By: Rudolph Berrios MD on 01/18/2025 8:06 PM The attending radiologist has reviewed the image(s) and agrees with thecontent of this report. Ordered By: NADEGE PRIETO Interpreted By: Rudolph Berrios MD, 01/18/2025 8:06 PM us Nadege Prieto MD GENERAL IMAGING Final Result * LACTIC ACID (01/18/2025 6:22 PM SPINNER CAP FRAME) Only the most recent of7 resultswithin the time period is included. LACTIC ACID VENOUS 1.6 0.4 - 2.0 MMOL/L 01/18/2025 7:[address] [facility] BLOOD VENOUS BLOOD SPECIMEN / Unknown 01/18/2025 6:22 PM SPINNER CAP FRAME us Nadege Prieto MD LABORATORY Final Result Performing Organization Address [facility]/ZIP Co de Phone Number [facility] [address] [place] [address], [phone] * (ABNORMAL) LIPASE (01/18/2025 6:21 PM SPINNER CAP FRAME) Pathologist [facility] LIPASE 84(H) 13 - 75 UNITS/L 01/18/2025 7:[address] [facility] BLOOD VENOUS BLOOD SPECIMEN / Unknown 01/18/2025 6:21 PM SPINNER CAP FRAME us Nadege Prieto MD LABORATORY Final Result Performing Organization Address [facility]/ZIP Co de Phone Number [facility] [address] [place] [address], [place] [phone] * (ABNORMAL) COMPREHENSIVE METABOLIC PANEL (01/18/2025 6:21 PM SPINNER CAP FRAME) SODIUM S/P/B 136 136 - 145 MMOL/L 01/18/2025 7:[address] [facility] POTASSIUM S/P/B 3.4(L) 3.5 - 5.1 MMOL/L 01/18/2025 7:[address] [facility] CHLORIDE S/P/B 107 97 - 115 MMOL/L 01/18/2025 7:21 PM [facility] CO2 22.1 21.0 - 32.0 MMOL/L 01/18/2025 7:21 PM [facility] GLUCOSE 96 74 - 106 MG/DL 01/18/2025 7:21 PM [facility] BUN 23(H) 7 - 18 MG/DL 01/18/2025 7:21 PM [facility] CREATININE S/P/B 0.86 0.70 - 1.30 MG/DL 01/18/2025 7:21 PM [facility] CALCIUM S/P/B 7.9(L) 8.5 - 10.1 MG/DL 01/18/2025 7:21 PM [facility] BILIRUBIN TOTAL S/P/B 13.4(H) 0.2 - 1.0 MG/DL 01/18/2025 7:21 PM [facility] ALKALINE PHOSPHATASE S/P/B 207(H) 45 - 115 U/L 01/18/2025 7:21 PM [facility] AST 88(H) 15 - 37 U/L 01/18/2025 7:21 PM [facility] ALT 96(H) 16 - 61 U/L 01/18/2025 7:21 PM [facility] TOTAL PROTEIN S/P/B 5.3(L) 6.4 - 8.2 G/DL 01/18/2025 7:21 PM [facility] ALBUMIN S/P/B 2.0(L) 3.4 - 5.0 G/DL 01/18/2025 7:21 PM [facility] ANION GAP 6.9 2.0 - 10.0 MMOL/L 01/18/2025 7:21 PM [facility] OSMOLALITY (CALC) 286 MOSM/KG 025 7:21 PM [facility] Comment:REFERENCE RANGE NOT ESTABLISHED GFR ESTIMATE >90 >90 ML/MIN/1. 73 M2 01/18/2025 7:[address] [facility] GFR NOTES GFR REFERENCE S: 01/18/2025 7:[address] [facility] Comment: THE ESTIMATED GFR IS CALCULATED USING THE 2020 CKD-EPI EQUATION. THE FOLLOWING CATEGORIES FOR GRADING RENAL FUNCTION ARE RECOMMENDED BY THE INTERNATIONAL SOCIETY OF NEPHROLOGY (KDIGO 2012 CLINICAL PRACTICE GUIDELINE). G1,NORMAL OR HIGH: >89 ml/min/1.73 m2 G2,MILDLY DECREASED: 60-89 ml/min/1.73 m2 G3A,MILDLY TO MODERATELY DECREASED: 45-59 ml/min/1.73 m2 G3B,MODERATELY TO SEVERELY DECREASED: 30-44 ml/min/1.73 m2 G4,SEVERELY DECREASED: 15-29 ml/min/1.73 m2 G5,KIDNEY FAILURE: <15 ml/min/1.73 m2 BLOOD VENOUS BLOOD SPECIMEN / Unknown 01/18/2025 6:21 PM SPINNER CAP FRAME Nadege Prieto MD LABORATORY Final Result Performing Organization Address City/State/[facility] Co de Phone Number [facility] [address] [place] [address], [phone] * CT ABD+PEL W CON (01/18/2025 10:54 AM SPINNER CAP FRAME) Anatomical Region Laterality Modality Abdomen Computed Tomogra phy 01/18/2025 11:4 9 AM SPINNER CAP FRAME Addenda Addendum by Addy Ledezma MD on 01/18/2025 12:14 PM SPINNER CAP FRAME [facility] [address] [place] [address] Addendum: In addition to the above findings, there is also lack of enhancement within the left portal vein suggesting portal vein thrombosis. Ordered By: NADEGE PRIETO Interpreted By: Addy Ledezma MD, 01/18/2025 12:12 PM Impressions 01/18/2025 11:57 AM SPINNER CAP FRAME IMPRESSION: 1) Cholelithiasis with mild gallbladder wall thickening. There is also evidence of choledocholithiasis with 4.5 mm in diameter stone in the distal common bile duct. 2. Malpositioning of CBD stent. The stent extends through the posterior wall of the proximal common bile duct and into the adjacent main portal vein. There is persistent intrahepatic biliary duct dilatation. 3. No acute inflammatory change, abscess nor ascites. 4. Nonspecific splenomegaly. A Critical message has been sent initially to NADEGE Chan the [employer] system on 01/18/2025 11:57 AM, Message ID [id number]. Receipt of this communication by the appropriate provider/service will be electronically recorded and documented by [employer] upon receiving acknowledgement. Ordered By: NADEGE PRIETO Interpreted By: Addy Ledezma MD, 01/18/2025 11:49 AM Narrative 01/18/2025 11:57 AM SPINNER CAP FRAME [place] [address] Examination: CT ABD+PEL W CON Exam time: 01/18/2025 10:47 AM Clinical history: Obstructive jaundice, ERCP with stent placement, no improvement in serum bilirubin level Comparison: None Technique: Axial images obtained from the level of xiphoid process to pubic symphysis with intravenous injection 100 mL Isovue 370 contrast using low-dose CT technique. Sagittal and coronal reconstruction. Findings: CT ABDOMEN: Visualized portions of the lung bases demonstrate no acute abnormality. No significant hiatal hernia. The liver is normal in size. There is slightly inhomogeneous liver opacification with no definite focal enhancing intrahepatic mass lesion. There is a small benign-appearing cyst in the central liver. There is evidence of intrahepatic biliary duct dilatation. There is evidence of cholelithiasis with mild gallbladder wall thickening. There is also evidence of choledocholithiasis with a stone noted adjacent to a stent in the distal common bile duct. The retained stones measures approximately 4.5 mm in transverse diameter. There appears to be malpositioning of the CBD stent. The stent is noted to be in the lumen of the distal common bile duct, however towards the prema hepatis the catheter appears to extend through the posterior wall of the CBD becoming extraluminal and extending into the adjacent main portal vein. The spleen is enlarged measuring 17 mm in length. No focal splenic lesion is demonstrated. The pancreas and the right adrenal gland unremarkable. There is an indeterminate 1 cm nodule arising from the left adrenal gland. The kidneys are homogeneously opacified. No significant acute perirenal inflammatory stranding or fluid. No evidence of ureteral stone nor hydronephrosis on either side. No evidence of solid renal mass lesion. There is no acute inflammatory change, abscess nor ascites. No evidence of mechanical bowel obstruction or perforation. No significant lymphadenopathy. Abdominal aorta and IVC are unremarkable. CT PELVIS: There is a small amount of nonspecific pelvic ascites. No acute inflammatory change or abscess. Mild prostatomegaly. No significant pelvic lymphadenopathy. Chronic degenerative disc disease lower lumbar spine with multiple Schmorl's nodes. Procedure Note Addy Ledezma MD - 01/18/[address] [address] Examination: CT ABD+PEL W CON Exam time: 01/18/2025 10:47 AM Clinical history: Obstructive jaundice, ERCP with stent placement, noimprovement in serum bilirubin level Comparison: None Technique: Axial images obtained from the level of xiphoid process topubic symphysis with intravenous injection 100 mL Isovue 370 contrastusing low-dose CT technique. Sagittal and coronal reconstruction. Findings: CT ABDOMEN: Visualized portions of the lung bases demonstrate no acuteabnormality. No significant hiatal hernia. The liver is normal in size. There is slightly inhomogeneous liveropacification with no definite focal enhancing intrahepatic mass lesion.There is a small benign-appearing cyst in the central liver. There isevidence of intrahepatic biliary duct dilatation. There is evidence ofcholelithiasis with mild gallbladder wall thickening. There is alsoevidence of choledocholithiasis with a stone noted adjacent to a stent inthe distal common bile duct. The retained stones measures approximately4.5 mm in transverse diameter. There appears to be malpositioning of the CBD stent. The stent is noted luis in the lumen of the distal common bile duct, however towards the portahepatis the catheter appears to extend through the posterior wall of theCBD becoming extraluminal and extending into the adjacent main portalvein. The spleen is enlarged measuring 17 mm in length. No focal splenic lesionis demonstrated. The pancreas and the right adrenal gland unremarkable.There is an indeterminate 1 cm nodule arising from the left adrenal gland.The kidneys are homogeneously opacified. No significant acute perirenalinflammatory stranding or fluid. No evidence of ureteral stone norhydronephrosis on either side. No evidence of solid renal mass lesion. There is no acute inflammatory change, abscess nor ascites. No evidence ofmechanical bowel obstruction or perforation. No significantlymphadenopathy. Abdominal aorta and IVC are unremarkable. CT PELVIS: There is a small amount of nonspecific pelvic ascites. No acuteinflammatory change or abscess. Mild prostatomegaly. No significant pelviclymphadenopathy. Chronic degenerative disc disease lower lumbar spine withmultiple Schmorl's nodes. IMPRESSION: 1) Cholelithiasis with mild gallbladder wall thickening. There is alsoevidence of choledocholithiasis with 4.5 mm in diameter stone in thedistal common bile duct. 2. Malpositioning of CBD stent. The stent extends through the posteriorwall of the proximal common bile duct and into the adjacent main portalvein. There is persistent intrahepatic biliary duct dilatation. 3. No acute inflammatory change, abscess nor ascites. 4. Nonspecific splenomegaly. A Critical message has been sent initially to NADEGE Chan the [employer] system on 01/18/2025 11:57 AM, Message [id number]. Receipt of this communication by the appropriateprovider/service will be electronically recorded and documented by [employer] upon receiving acknowledgement. Ordered By: NADEGE PRIETO Interpreted By: Addy Ledezma MD, 01/18/2025 11:49 AM us Nadege Prieto MD CT Edited Result - Final * SURG XR FLUOROSCOPY (01/17/2025 1:08 PM SPINNER CAP FRAME) Anatomical Region Laterality Modality Undefined Radio Fluoroscop y 01/17/2025 11:4 0 AM SPINNER CAP FRAME Narrative 01/17/2025 11:40 AM SPINNER CAP FRAME This report does not contain a radiologist's interpretation. Please review associated procedure and/or operative report. Procedure Note Rosalino Gomez MD - 01/17/2025 This report does not contain a radiologist's interpretation. Please review associated procedure and/or operative report. us Michel Dasilva MD IMAGES ONLY Final Result * ERCP (01/17/2025 11:40 AM SPINNER CAP FRAME) us Michel Dasilva MD GI PROCEDURE ORDERABLES Final Re sult * AMMONIA (01/17/2025 5:40 AM SPINNER CAP FRAME) AMMONIA 29 11 - 32 UMOL/L 01/17/2025 6:[address] [facility] BLOOD VENOUS BLOOD SPECIMEN / Unknown 01/17/2025 5:40 AM SPINNER CAP FRAME us Ange Gonzalez MD LABORATORY Final Res ult Performing Organization Address [facility] de Phone Number [facility] [address] [place] [address], [phone] * TYPE & SCREEN (01/17/2025 5:40 AM SPINNER CAP FRAME) ABO/RH O POSITIVE 01/17/2025 6:[address] [facility] ANTIBODY SCREEN NEGATIVE 01/17/2025 6:[address] [facility] SAMPLE EXPIRATION 01/20/2025,2 359 01/17/2025 5:[address] [facility] BLOOD VENOUS BLOOD SPECIMEN / Unknown 01/17/2025 5:40 AM SPINNER CAP FRAME us Ange Gonzalez MD BLOOD BANK TEST ORDERABLE S Final Result Performing Organization Address [facility] Co de Phone Number [facility] [address] [place] [address], [phone] * (ABNORMAL) CULTURE, BACTERIA, BLOOD (01/16/2025 10:59 PM SPINNER CAP FRAME) Only the most recent of2 resultswithin the time period is included. SPEC DESCRIPTION BLOOD-VENOUS 01/16/2025 11:[address] [facility] SPECIAL REQUESTS BLOOD-AEROBIC BOTTLE ONLY 01/16/2025 11:[address] [facility] GRAM STAIN RESULT IN AEROBIC BLOOD CULTURE GRAM NEGATIVE RODS 01/20/2025 10:[address] [facility] GRAM STAIN RESULT , 01/20/2025 10:[address] [facility] GRAM STAIN RESULT KLEBSIELLA PNEUMONIAE GROUP DNA DETECTED BY PCR 01/20/2025 10:[address] [facility] GRAM STAIN RESULT CTX-M NOT DETECTED BY PCR 01/20/2025 10:[address] [facility] GRAM STAIN RESULT . 01/20/2025 10:[address] [facility] GRAM STAIN RESULT The following gram-positive bacteria, gram negative bacteria, yeast and resistance genes are tested for using the [employer] multiplexed PCR panel: Enterococcus faecalis, Enterococcus facium, Listeria monocytogenes, Staphylococci (with differentiation of S. aureus, S. epidermidis, and S. lugdunensis), Streptococcus (with differentiation of S. pneumoniae, S. agalactiae, S. pyogenes), Acinetobacter calcoaceticus baumannii, Bacteroides fragilis, Enterobacterales (including specific differentiation of Enterobacter cloacae complex, E. coli, K. aerogenes, K. oxytoca, K. pneumoniae group, Proteus, Salmonella spp, and Serratia marcescens), Haemophilus influenzae, Neisseria menigitidis, P. aeruginosa, Stenotrophomonas maltophilia, C. albicans, C. auris, C. glabrat, C. krusei, C. parapsilosis, C. tropicalis, Cryptococcus neoformans/gattii, mecA/C, mecA/C and MREJ (MRSA), VAN A/B (VRE), CTX, IMP, KPC, MCR 1, NDM, OXA 48 LIKE, VIM. 01/20/2025 10:[address] [facility] GRAM STAIN RESULT RESULTS PHONED TO AND READ BACK BY: ED PHARM 1025 01.20. LLG 01/20/2025 10:[address] [facility] CULTURE RESULT KLEBSIELLA PNEUMONIAE IN AEROBIC BLOOD CULTURE (AA) 01/22/2025 9:[address] [facility] BLOOD VENOUS BLOOD SPECIMEN / Unknown 01/16/2025 10:59 PM SPINNER CAP FRAME 01/16/2025 11:09 PM SPINNER CAP FRAME Narrative Organism Antibiotic Method Susceptibility Klebsiella pneumoniae CEFAZOLIN IMANI (KB) Sensitive Klebsiella pneumoniae AMPICILLIN IMANI (VITEK) Resistant Klebsiella pneumoniae AMOXICILLIN/CLAVULANIC A IMANI ( SNOW) Sensitive Klebsiella pneumoniae AZTREONAM IMANI (VITEK) Sensitive Klebsiella pneumoniae CEFEPIME IMANI (VITEK) Sensitive Klebsiella pneumoniae CEFTRIAXONE IMANI (VITEK) Sensitive Klebsiella pneumoniae CIPROFLOXACIN IMANI (VITEK) Sensitive Klebsiella pneumoniae ESBL IMANI (VITEK) NEG: Sensitive Klebsiella pneumoniae ERTAPENEM IMANI (VITEK) Sensitive Klebsiella pneumoniae GENTAMICIN IMANI (VITEK) Sensitive Klebsiella pneumoniae IMIPENEM IMANI (VITEK) Sensitive Klebsiella pneumoniae LEVOFLOXACIN IMANI (VITEK) Sensitive Klebsiella pneumoniae MEROPENEM IMANI (VITEK) Sensitive Klebsiella pneumoniae PIPERACILLIN/TAZOBACTAM IMANI (VIT EK) Sensitive Klebsiella pneumoniae TRIMETH-SULFAMETH. IMANI (VITEK) Sensitive Klebsiella pneumoniae TETRACYCLINE IMANI (VITEK) Sensitive Ange Gonzalez MD MICROBIOLOGY - GENERAL OR DERABLES Final Result Performing Organization Address City/[facility]/ZIP Co de Phone Number [facility] [address] [place] [address], [phone] * OUTSIDE LAB (SCAN ORDER) (01/16/2025) 01/16/2025 LastRoom Scanned SCANNING Final Resu lt * HEP C SCANNED ORDERS (06/22/2024) LastRoom Scanned SCANNING Final Resu lt [facility] * COLOGUARD (EXACT SCIENCE) (12/21/2023 10:40 AM SPINNER CAP FRAME) COLOGUARD RESULT Negative Negative [employer] (CLIA #:[id number]) Comment: NEGATIVE TEST RESULT. A negative Cologuard [...] Sutton et al, N Engl J Med 2014;370(14):1024-1594) The normal value (reference range) for this assay is negative. COLOGUARD RE-SCREENING RECOMMENDATION: Periodic colorectal cancer screening is an important part of preventive healthcare for asymptomatic individuals at average risk for colorectal cancer. Following a negative Cologuard result, the [place] [employer] and U.S. Multi-Society Task Force screening guidelines recommend a Cologuard re-screening interval of 3 years. References: [place] [employer] Guideline for Colorectal Cancer Screening: https://www.cancer.org/cancer/kociu-dturet-wdsgaz/agxtcjogq-bqtlpexiq-dfuztml/ac s-rec ommendations.html.; Maurisio DK, Sari CASIANO, Luis Daniel HeK, Colorectal Cancer Screening: Recommendations for Physicians and Patients from the U.S. Multi-Society Task Force on Colorectal Cancer Screening , Am J Gastroenterology 2017; 112:2341-2856. TEST DESCRIPTION: Composite algorithmic analysis of stool [...] Sutton et al, N Engl J Med 2014;370(14):3127-6842.) Cologuard may produce a false negative or false positive result (no colorectal cancer or precancerous polyp present at colonoscopy follow up). A negative Cologuard test result does not guarantee the absence of CRC or advanced adenoma (pre-cancer). The current Cologuard screening interval is every 3 years. ([place] [employer] and U.S. Multi-Society Task Force). Cologuard performance data in a 10,000 patient pivotal study using colonoscopy as the reference method can be accessed at the following location: www.[employer]/results. Additional description of the Cologuard test process, warnings and precautions can be found at www.cologuard.com. STOOL STOOL SPECIMEN / Unknown 12/21/2023 10:40 AM SPINNER CAP FRAME 12/23/2023 9:52 AM SPINNER CAP FRAME us Anthony Deal MD BODY FLUIDS AND STOOLS ORDERAB LES Final Result [facility] ([facility]) [address] [place] [address], [employer] (CLIA #:[id number]) [address] 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
--- NOTE | 2025-01-25 18:42 | PC.NURSE ---
Pt again requesting an update from the provider. MD Jaja made aware again of pt's request. No new orders at this time.
--- NOTE | 2025-01-25 19:05 | PC.NURSE ---
Handoff report given to TASNEEM Hong.
[2025-01-25] MEDS: POTASSIUM CHLORIDE 20 MEQ ER TABLET PO (19:42)
== END 2025-01-25 19:48 | disposition home or self-care (01) ==
PROVIDERS: Emergency Provider Emergency Medicine; PCP Internal Medicine
DX: K74.69 Other cirrhosis of liver (principal); R53.1 Weakness; I10 Essential (primary) hypertension
CPT/HCPCS: 36415; 71045; 80053; 81003; 82140; 83735; 84484; 85025; 93005; 99284; A9270